=== PATIENT | male | born 1975 | race Caucasian/White ===

== ENCOUNTER 2016-05-21 01:08 | Emergency (ER) | payer MEDICARE, MEDICAID ==
[~2016-05-21] VITALS: Ht 177.8 cm; Wt 91.7 kg
[~2016-05-21 01:08] MED LIST: AMLO2.5T PO; ARIP10TA13 PO; ASPI-496 PO; CLIN150C2; CLON0.5T PO; DIAZ5TAB4; DIVA500T2 PO; DIVA500T4 PO; DOXE100C PO; HALO5AMP3; HALO5AMP3 PO; LORA-445 PO; LORA-446 PO; LOXA5CAP PO; LURA60TA PO; MELO-184 PO; NAPR500T3; OLAN10TA3 PO; OLAN10TA9 PO; OLAN20TA3 PO; OMEP-110 PO; OXCA150T PO; OXCA150T3 PO; OXCA600T3 PO; PALI234D IM; PRAZ1CAP2; PRAZ2CAP PO; PRAZ2CAP2 PO; QUET100T4 PO; QUET25TA5 PO; QUET400T4 PO; THORAZINE; TOPI15CA4 PO; TRAM-385; TRAM50TA2 PO; TRIH2TAB3 PO; ZIPR20CA2 PO; ZIPR80CA2
[2016-05-21 01:10] VITALS: BP 142/85
== END 2016-05-21 04:42 ==
LOC: ED 04:03
DX: R53.1 Weakness (principal); Z53.21 Procedure and treatment not carried out due to patient leaving prior to being seen by health care provider

== ENCOUNTER 2016-06-13 22:41 | Observation (INO) | payer MEDICARE, MEDICAID ==
[~2016-06-13] VITALS: Ht 180.3 cm; Wt 89.5 kg
[2016-06-13 23:38] LABS: HEMOGLOBIN 16.2 g/dL (13.7-18.0)
[2016-06-13 23:50] LABS: BLOOD UREA NITROGEN 15 mg/dL (7-18)
[2016-06-13 23:53] LABS: ASPARTATE AMINO TRANSFERASE 38 U/L (15-37)
[2016-06-13 23:56] LABS: ACETAMINOPHEN < 2 mcg/mL (10-30)
[2016-06-14 00:26] LABS: DAU SCREEN DISCLAIMER
[2016-06-14] MEDS ORDERED: ZIPRASIDONE 20 MG INJ IM PRN (02:00)
[2016-06-14 02:43] VITALS: BP 135/87
[2016-06-14] MEDS: OLANZAPINE 5 MG TABLET PO SCH ×2 (03:14→20:32)
[2016-06-14 08:26] VITALS: BP 120/78
[2016-06-14] MEDS: NICOTINE 21 MG/24 HR PATCH.TD24 TD SCH (09:43)
[2016-06-14 19:23] VITALS: BP 141/85
[2016-06-14] MEDS: HYDROcodone/APAP 5/325 TABLET PO PRN (20:32)
[2016-06-15] MEDS: LORazepam 1MG TABLET PO PRN ×2 (02:00→04:12)
[2016-06-15 07:49] VITALS: BP 125/78
[2016-06-15] MEDS: NICOTINE 21 MG/24 HR PATCH.TD24 TD SCH (08:51)
[2016-06-15] MEDS: ONDANSETRON ODT 4 MG PO PRN (08:58)
[2016-06-15 19:42] VITALS: BP 114/74
[2016-06-15] MEDS: HYDROcodone/APAP 5/325 TABLET PO PRN (19:42)
[2016-06-15] MEDS: OLANZAPINE 5 MG TABLET PO SCH (21:14)
[2016-06-16 08:30] VITALS: BP 127/79
[2016-06-16] MEDS: HYDROcodone/APAP 5/325 TABLET PO PRN ×4 (08:41→21:42)
[2016-06-16] MEDS: ONDANSETRON ODT 4 MG PO PRN (08:42)
[2016-06-16] MEDS: NICOTINE 21 MG/24 HR PATCH.TD24 TD SCH (08:42)
[2016-06-16] MEDS: LORazepam 1MG TABLET PO PRN ×4 (08:42→19:36)
[2016-06-16 19:42] VITALS: BP 128/82
[2016-06-16] MEDS: OLANZAPINE 5 MG TABLET PO SCH (20:14)
[2016-06-17] MEDS: HYDROcodone/APAP 5/325 TABLET PO PRN ×4 (06:25→21:12)
[2016-06-17 07:50] VITALS: BP 134/80
[2016-06-17] MEDS: NICOTINE 21 MG/24 HR PATCH.TD24 TD SCH (08:20)
[2016-06-17] MEDS: RISPERIDONE 0.5 MG TABLET PO SCH ×2 (10:00→21:12)
[2016-06-17] MEDS: OXCARBAZEPINE 150 MG TABLET PO SCH ×2 (11:14→21:12)
[2016-06-17] MEDS: LORazepam 1MG TABLET PO PRN (14:48)
[2016-06-17 19:25] VITALS: BP 146/93
[2016-06-17] MEDS: OLANZAPINE 5 MG TABLET PO SCH (21:12)
[2016-06-18] MEDS: LORazepam 1MG TABLET PO PRN ×2 (00:12→17:23)
[2016-06-18 07:47] VITALS: BP 137/88
[2016-06-18] MEDS: NICOTINE 21 MG/24 HR PATCH.TD24 TD SCH ×2 (08:36→08:38)
[2016-06-18] MEDS: RISPERIDONE 0.5 MG TABLET PO SCH ×2 (08:36→23:29)
[2016-06-18] MEDS: OXCARBAZEPINE 150 MG TABLET PO SCH ×2 (08:36→23:29)
[2016-06-18] MEDS: HYDROcodone/APAP 5/325 TABLET PO PRN ×3 (10:00→23:40)
[2016-06-18 20:04] VITALS: BP 163/112
[2016-06-18] MEDS: OLANZAPINE 5 MG TABLET PO SCH (23:29)
[2016-06-19 08:25] VITALS: BP 141/80
[2016-06-19] MEDS: AMLODIPINE 5 MG TABLET PO SCH (09:00)
[2016-06-19] MEDS: RISPERIDONE 0.5 MG TABLET PO SCH (09:31)
[2016-06-19] MEDS: OXCARBAZEPINE 150 MG TABLET PO SCH ×2 (09:31→21:20)
[2016-06-19] MEDS: NICOTINE 21 MG/24 HR PATCH.TD24 TD SCH (09:33)
[2016-06-19] MEDS: HYDROcodone/APAP 5/325 TABLET PO PRN ×2 (09:42→21:24)
[2016-06-19] MEDS: LORazepam 1MG TABLET PO PRN (13:16)
[2016-06-19 19:51] VITALS: BP 140/94
[2016-06-19] MEDS: RISPERIDONE 1 MG TABLET PO SCH (21:19)
[2016-06-20] MEDS: AMLODIPINE 5 MG TABLET PO SCH (08:26)
[2016-06-20] MEDS: OXCARBAZEPINE 150 MG TABLET PO SCH ×2 (08:26→20:10)
[2016-06-20] MEDS: NICOTINE 21 MG/24 HR PATCH.TD24 TD SCH (08:31)
[2016-06-20] MEDS: HYDROcodone/APAP 5/325 TABLET PO PRN ×2 (08:32→20:10)
[2016-06-20 09:00] VITALS: BP 125/84
[2016-06-20 19:47] VITALS: BP 132/77
[2016-06-20] MEDS: RISPERIDONE 1 MG TABLET PO SCH (20:09)
[2016-06-20 23:39] VITALS: BP 132/89
[2016-06-20] MEDS: LORazepam 1MG TABLET PO PRN (23:42)
[2016-06-21] MEDS: AMLODIPINE 5 MG TABLET PO SCH (08:16)
[2016-06-21] MEDS: OXCARBAZEPINE 150 MG TABLET PO SCH ×2 (08:17→20:07)
[2016-06-21 08:39] VITALS: BP 114/72
[2016-06-21] MEDS: NICOTINE 21 MG/24 HR PATCH.TD24 TD SCH (09:20)
[2016-06-21] MEDS: HYDROcodone/APAP 5/325 TABLET PO PRN ×2 (13:15→20:04)
[2016-06-21] MEDS: LORazepam 1MG TABLET PO PRN (17:40)
[2016-06-21 19:32] VITALS: BP 155/96
[2016-06-21] MEDS: RISPERIDONE 1 MG TABLET PO SCH (20:04)
[2016-06-22] MEDS: HYDROcodone/APAP 5/325 TABLET PO PRN ×2 (03:15→10:46)
[2016-06-22] MEDS: LORazepam 1MG TABLET PO PRN (05:18)
[2016-06-22] MEDS: AMLODIPINE 5 MG TABLET PO SCH (07:37)
[2016-06-22] MEDS: OXCARBAZEPINE 150 MG TABLET PO SCH (07:37)
[2016-06-22 08:05] VITALS: BP 129/78
[2016-06-22] MEDS: NICOTINE 21 MG/24 HR PATCH.TD24 TD SCH (08:28)
[2016-06-22] MEDS ORDERED: RISP1TAB45 PO (14:01)
[2016-06-22] MEDS ORDERED: OXCA300T3 PO (14:01)
[2016-06-22] MEDS ORDERED: AMLO5TAB2 PO (14:01)
== END 2016-06-22 14:48 | disposition home or self-care (01) ==
LOC: ED 23:59 → 3E 06-14 01:34
PROVIDERS: ADMIT Internal Medicine; ATTEND Internal Medicine
DX: F25.9 Schizoaffective disorder, unspecified (principal); F31.9 Bipolar disorder, unspecified; R45.851 Suicidal ideations; F17.200 Nicotine dependence, unspecified, uncomplicated; F23 Brief psychotic disorder; I10 Essential (primary) hypertension; Z59.0 Homelessness; Z91.19 Patient's noncompliance with other medical treatment and regimen; W26.0XXA Contact with knife, initial encounter
CPT/HCPCS: 36415; 80053; 80307; 80329; 81003; 85025; 99285; G0378; Q0162; G0480

== ENCOUNTER 2016-06-23 22:11 | Emergency (ER) | payer MEDICARE, MEDICAID ==
[~2016-06-23] VITALS: Ht 177.8 cm; Wt 91.3 kg
[~2016-06-23 22:11] MED LIST changes: +AMLO5TAB2 PO; +OXCA300T3 PO; +RISP1TAB45 PO
[2016-06-23 23:36] LABS: DAU SCREEN DISCLAIMER
[2016-06-24 00:07] LABS: ASPARTATE AMINO TRANSFERASE 64 U/L (15-37); BLOOD UREA NITROGEN 15 mg/dL (7-18)
[2016-06-24 00:12] LABS: ACETAMINOPHEN < 2 mcg/mL (10-30)
[2016-06-24 05:10] VITALS: BP 147/99
== END 2016-06-24 05:11 | disposition home or self-care (01) ==
LOC: ED 23:10
DX: F31.63 Bipolar disorder, current episode mixed, severe, without psychotic features (principal); I10 Essential (primary) hypertension
CPT/HCPCS: 36415; 71010; 80053; 80307; 80329; 85025; 93005; 99285; G0480

== ENCOUNTER 2016-06-24 12:02 | Observation (INO) | payer MEDICARE, MEDICAID ==
[~2016-06-24] VITALS: Ht 177.8 cm; Wt 89.6 kg
[2016-06-24] MEDS ORDERED: ZIPRASIDONE 20 MG INJ IM ONE (13:00)
[2016-06-24 13:03] LABS: ASPARTATE AMINO TRANSFERASE 66 U/L (15-37); BLOOD UREA NITROGEN 18 mg/dL (7-18)
[2016-06-24 13:11] LABS: ACETAMINOPHEN < 2 mcg/mL (10-30)
[2016-06-24] MEDS ORDERED: LORazepam 1MG TABLET ONE (13:42)
[2016-06-24] MEDS ORDERED: ZIPRASIDONE 20MG CAPSULE ONE (13:42)
[2016-06-24] MEDS ORDERED: LORazepam 1MG TABLET PO ONE (14:00)
[2016-06-24] MEDS ORDERED: ZIPRASIDONE 20MG CAPSULE PO ONE (14:00)
[2016-06-24] MEDS ORDERED: QUETIAPINE 25MG TABLET PO ONE (14:30)
[2016-06-24 15:41] LABS: DAU SCREEN DISCLAIMER
[2016-06-24 15:47] LABS: PATH.CAST-FLAG NOT PRESENT; SPERM-FLAG NOT PRESENT; SRC-FLAG NOT PRESENT; XTAL-FLAG NOT PRESENT; YLC-FLAG NOT PRESENT
[2016-06-24] MEDS ORDERED: DOCUSATE 100 MG CAPSULE PO PRN (17:00)
[2016-06-24 17:55] VITALS: BP 145/83
[2016-06-24 19:44] VITALS: BP 118/63
[2016-06-24] MEDS: OXCARBAZEPINE 150 MG TABLET PO SCH (21:47)
[2016-06-24] MEDS: RISPERIDONE 1 MG TABLET PO SCH (21:47)
[2016-06-25 07:19] VITALS: BP 116/73
[2016-06-25] MEDS: AMLODIPINE 5 MG TABLET PO SCH (08:23)
[2016-06-25] MEDS: OXCARBAZEPINE 150 MG TABLET PO SCH ×2 (08:25→21:45)
[2016-06-25 19:42] VITALS: BP 132/80
[2016-06-25] MEDS: RISPERIDONE 1 MG TABLET PO SCH (21:46)
[2016-06-26 08:03] VITALS: BP 112/64
[2016-06-26] MEDS: OXCARBAZEPINE 150 MG TABLET PO SCH ×2 (09:18→20:25)
[2016-06-26] MEDS: AMLODIPINE 5 MG TABLET PO SCH (09:18)
[2016-06-26] MEDS ORDERED: IBUPROFEN 200 MG TABLET PO PRN (15:00)
[2016-06-26 19:00] VITALS: BP 147/83
[2016-06-26] MEDS: RISPERIDONE 1 MG TABLET PO SCH (20:24)
[2016-06-27] MEDS: AMLODIPINE 5 MG TABLET PO SCH (08:04)
[2016-06-27] MEDS: OXCARBAZEPINE 150 MG TABLET PO SCH ×2 (08:04→19:57)
[2016-06-27 08:17] VITALS: BP 133/82
[2016-06-27] MEDS: RISPERIDONE 1 MG TABLET PO SCH (19:57)
== END 2016-06-28 04:42 ==
LOC: ED 13:40 → EDIP 14:02 → 3E 17:47
PROVIDERS: ADMIT Family Medicine; ATTEND Family Medicine
DX: F25.9 Schizoaffective disorder, unspecified (principal); I10 Essential (primary) hypertension; F32.9 Major depressive disorder, single episode, unspecified; R45.851 Suicidal ideations; R44.0 Auditory hallucinations; G40.909 Epilepsy, unspecified, not intractable, without status epilepticus; Z91.19 Patient's noncompliance with other medical treatment and regimen; Z86.19 Personal history of other infectious and parasitic diseases
CPT/HCPCS: 36415; 80053; 80307; 80329; 81001; 85025; 99285; G0378; G0480

== ENCOUNTER 2016-07-27 07:13 | Emergency (ER) | payer MEDICARE, MEDICAID ==
[~2016-07-27] VITALS: Ht 177.8 cm; Wt 90.4 kg
[2016-07-27 07:15] VITALS: BP 133/75
== END 2016-07-27 08:17 | disposition home or self-care (01) ==
LOC: ED 08:00
DX: M79.672 Pain in left foot (principal); M79.671 Pain in right foot; Z72.89 Other problems related to lifestyle; I10 Essential (primary) hypertension; M19.90 Unspecified osteoarthritis, unspecified site; F10.20 Alcohol dependence, uncomplicated
CPT/HCPCS: 99281

== ENCOUNTER 2016-08-12 15:51 | Emergency (ER) | payer MEDICARE, MEDICAID ==
[~2016-08-12] VITALS: Ht 177.8 cm; Wt 90.1 kg
[2016-08-12 16:00] VITALS: BP 132/75
[2016-08-13] MEDS ORDERED: DIVA125T2 PO (01:37)
[2016-08-13] MEDS ORDERED: HALO5TAB5 PO (01:38)
== END 2016-08-12 17:36 | disposition left against medical advice (07) ==
LOC: ED 17:30
DX: Z53.21 Procedure and treatment not carried out due to patient leaving prior to being seen by health care provider (principal)

== ENCOUNTER 2016-08-13 01:18 | Emergency (ER) | payer MEDICARE, MEDICAID ==
[~2016-08-13] VITALS: Ht 177.8 cm; Wt 91.5 kg
[2016-08-13 01:20] VITALS: BP 129/81
[2016-08-13] MEDS ORDERED: DIVA125T2 PO (01:37)
[2016-08-13] MEDS ORDERED: HALO5TAB5 PO (01:38)
== END 2016-08-13 02:22 | disposition home or self-care (01) ==
LOC: ED 02:08
DX: L02.414 Cutaneous abscess of left upper limb (principal); M19.90 Unspecified osteoarthritis, unspecified site; F15.10 Other stimulant abuse, uncomplicated; I10 Essential (primary) hypertension; G40.909 Epilepsy, unspecified, not intractable, without status epilepticus; Z88.1 Allergy status to other antibiotic agents; F12.10 Cannabis abuse, uncomplicated; F17.200 Nicotine dependence, unspecified, uncomplicated; Z91.041 Radiographic dye allergy status
CPT/HCPCS: 99281

== ENCOUNTER 2016-09-07 05:02 | Emergency (ER) | payer MEDICARE, MEDICAID ==
[~2016-09-07] VITALS: Ht 177.8 cm; Wt 86.2 kg
[~2016-09-07 05:02] MED LIST changes: +DIVA125T2 PO; +HALO5TAB5 PO
[2016-09-07 05:04] VITALS: BP 126/90
[2016-09-07] MEDS ORDERED: LIDOCAINE 1%, 20ML ONE (05:54)
[2016-09-07] MEDS ORDERED: LIDOCAINE 1%, 20ML INFIL ONE (06:00)
== END 2016-09-07 07:33 | disposition home or self-care (01) ==
LOC: ED 05:36
DX: L02.414 Cutaneous abscess of left upper limb (principal); I89.1 Lymphangitis; F15.10 Other stimulant abuse, uncomplicated; I10 Essential (primary) hypertension; F17.200 Nicotine dependence, unspecified, uncomplicated
CPT/HCPCS: 10060

== ENCOUNTER 2016-09-08 04:06 | Emergency (ER) | payer MEDICARE, MEDICAID ==
[~2016-09-08] VITALS: Ht 177.8 cm; Wt 86.9 kg
[2016-09-08 04:24] VITALS: BP 119/77
[2016-09-08] MEDS ORDERED: BACITRACIN ZINC OINT 500U/GM, 0.9 GM ONE (05:59)
[2016-09-08] MEDS ORDERED: BACITRACIN ZINC OINT 500U/GM, 0.9 GM TP ONE (06:00)
== END 2016-09-08 06:14 | disposition home or self-care (01) ==
LOC: ED 05:11
DX: L02.414 Cutaneous abscess of left upper limb (principal); E87.6 Hypokalemia; I10 Essential (primary) hypertension; F10.20 Alcohol dependence, uncomplicated; M19.90 Unspecified osteoarthritis, unspecified site
CPT/HCPCS: 99281

== ENCOUNTER 2016-09-09 09:52 | Emergency (ER) | payer MEDICARE, MEDICAID ==
[~2016-09-09] VITALS: Ht 177.8 cm; Wt 85.8 kg
[2016-09-09 09:57] VITALS: BP 109/73
== END 2016-09-09 10:51 | disposition home or self-care (01) ==
LOC: ED 10:30
DX: L02.414 Cutaneous abscess of left upper limb (principal); E87.6 Hypokalemia; I10 Essential (primary) hypertension; F10.20 Alcohol dependence, uncomplicated; M19.90 Unspecified osteoarthritis, unspecified site
CPT/HCPCS: 99283

== ENCOUNTER 2016-09-10 17:08 | Emergency (ER) | payer MEDICARE, MEDICAID ==
[~2016-09-10] VITALS: Ht 177.8 cm; Wt 86.9 kg
[2016-09-10 17:10] VITALS: BP 147/87
[2016-09-10] MEDS ORDERED: KETOROLAC 30 MG/1 ML IM ONE (18:00)
[2016-09-10] MEDS ORDERED: KETOROLAC 30 MG/1 ML ONE (18:06)
== END 2016-09-10 18:39 ==
LOC: ED 18:12
DX: M54.6 Pain in thoracic spine (principal); E87.6 Hypokalemia; F10.20 Alcohol dependence, uncomplicated
CPT/HCPCS: 93005; 96372; 99283; J1885

== ENCOUNTER 2016-09-15 22:16 | Emergency (ER) | payer MEDICARE, MEDICAID ==
[~2016-09-15] VITALS: Ht 177.8 cm; Wt 87.5 kg
[2016-09-15] MEDS ORDERED: PROMETHAZINE 25 MG/ML, 1ML ONE (23:12)
[2016-09-15] MEDS ORDERED: PROMETHAZINE 25 MG/ML, 1ML IM ONE (23:30)
[2016-09-16] MEDS ORDERED: ONDANSETRON 2MG/ML, 2ML IVPush ONE (02:00)
[2016-09-16 02:53] VITALS: BP 112/73
== END 2016-09-16 02:56 | disposition home or self-care (01) ==
LOC: ED 22:48
DX: G44.209 Tension-type headache, unspecified, not intractable (principal); F15.20 Other stimulant dependence, uncomplicated; I10 Essential (primary) hypertension; F10.20 Alcohol dependence, uncomplicated
CPT/HCPCS: 96372; 99283; J2550

== ENCOUNTER 2016-09-21 20:22 | Emergency (ER) | payer MEDICARE, MEDICAID ==
[~2016-09-21] VITALS: Ht 177.8 cm; Wt 83.6 kg
[2016-09-21 22:00] LABS: ASPARTATE AMINO TRANSFERASE 21 U/L (15-37); BLOOD UREA NITROGEN 17 mg/dL (7-18)
[2016-09-21 22:01] LABS: ACETAMINOPHEN < 2 mcg/mL (10-30)
[2016-09-21 23:18] LABS: DAU SCREEN DISCLAIMER
[2016-09-22 01:08] VITALS: BP 121/71
== END 2016-09-22 01:12 | disposition home or self-care (01) ==
LOC: ED 22:13
DX: F15.20 Other stimulant dependence, uncomplicated (principal); Z72.89 Other problems related to lifestyle; I10 Essential (primary) hypertension; F10.20 Alcohol dependence, uncomplicated
CPT/HCPCS: 36415; 80053; 80307; 80329; 85025; 99284; G0480

== ENCOUNTER 2016-09-22 14:19 | Emergency (ER) | payer MEDICARE, MEDICAID ==
[~2016-09-22] VITALS: Ht 172.7 cm; Wt 83.0 kg
[2016-09-22 14:20] VITALS: BP 133/87
[2016-09-22] MEDS ORDERED: LORazepam 1MG TABLET ONE (14:51)
[2016-09-22 14:52] LABS: DAU SCREEN DISCLAIMER
[2016-09-22] MEDS ORDERED: LORazepam 1MG TABLET PO ONE (15:00)
== END 2016-09-22 17:19 | disposition home or self-care (01) ==
LOC: ED 15:02
DX: F41.1 Generalized anxiety disorder (principal); F15.10 Other stimulant abuse, uncomplicated; F20.9 Schizophrenia, unspecified; F10.20 Alcohol dependence, uncomplicated
CPT/HCPCS: 80307; 99284

== ENCOUNTER 2016-09-26 12:57 | Emergency (ER) | payer MEDICARE, MEDICAID ==
[~2016-09-26] VITALS: Ht 177.8 cm; Wt 86.1 kg
[2016-09-26 12:58] VITALS: BP 126/81
[2016-09-26] MEDS ORDERED: CARBAMIDE PEROXIDE EAR DROPS 6.5%, 15ML ONE (12:59)
== END 2016-09-26 14:35 | disposition left against medical advice (07) ==
LOC: ED 14:29
DX: Z53.21 Procedure and treatment not carried out due to patient leaving prior to being seen by health care provider (principal)

== ENCOUNTER 2016-09-28 19:43 | Observation (INO) | payer MEDICARE, MEDICAID ==
[~2016-09-28] VITALS: Ht 177.8 cm; Wt 87.4 kg
[2016-09-28 20:38] LABS: DAU SCREEN DISCLAIMER
[2016-09-28] MEDS ORDERED: LORazepam 1MG TABLET ONE (20:48)
[2016-09-28] MEDS ORDERED: VALP250C59 PO (20:56)
[2016-09-28] MEDS ORDERED: HALO5TAB5 PO (20:56)
[2016-09-28] MEDS ORDERED: [UNRECOGNIZED DRUG - OTHER] IM (20:56)
[2016-09-28] MEDS ORDERED: [UNRECOGNIZED DRUG - OTHER] IM (20:56)
[2016-09-28] MEDS ORDERED: LORazepam 1MG TABLET PO ONE (21:00)
[2016-09-28 21:20] LABS: BLOOD UREA NITROGEN 6 mg/dL (7-18)
[2016-09-28 21:21] LABS: ACETAMINOPHEN < 2 mcg/mL (10-30)
[2016-09-29] MEDS ORDERED: HALOPERIDOL 5 MG/ML IM PRN (01:30)
[2016-09-29] MEDS ORDERED: BENZTROPINE 1 MG TABLET PO PRN (01:30)
[2016-09-29] MEDS ORDERED: LORazepam 1MG TABLET ONE (17:11)
[2016-09-30] MEDS: VALPROIC ACID 250 MG CAPSULE PO SCH ×2 (09:38→22:19)
[2016-09-30] MEDS: HALOPERIDOL 5 MG TABLET PO SCH (09:38)
[2016-09-30 15:10] VITALS: BP 125/73
[2016-09-30] MEDS: LORazepam 1MG TABLET PO PRN ×2 (18:34→21:36)
[2016-09-30 19:58] VITALS: BP 117/76
[2016-10-01 08:47] VITALS: BP 114/71
[2016-10-01] MEDS: VALPROIC ACID 250 MG CAPSULE PO SCH ×2 (09:07→20:39)
[2016-10-01] MEDS: HALOPERIDOL 5 MG TABLET PO SCH (09:07)
[2016-10-01] MEDS ORDERED: POTASSIUM CHLORIDE 20 MEQ TAB.ER.PRT PO ONE (19:00)
[2016-10-01 19:48] VITALS: BP 106/78
[2016-10-01] MEDS: LORazepam 1MG TABLET PO PRN (20:39)
[2016-10-01] MEDS: NICOTINE 21 MG/24 HR PATCH.TD24 TD SCH (21:30)
[2016-10-02] MEDS: LORazepam 1MG TABLET PO PRN ×3 (01:02→23:01)
[2016-10-02] MEDS: NICOTINE 21 MG/24 HR PATCH.TD24 TD SCH (01:43)
[2016-10-02 05:02] LABS: BLOOD UREA NITROGEN 6 mg/dL (7-18)
[2016-10-02 07:13] VITALS: BP 131/86
[2016-10-02] MEDS: HALOPERIDOL 5 MG TABLET PO SCH (09:30)
[2016-10-02] MEDS: VALPROIC ACID 250 MG CAPSULE PO SCH ×2 (09:30→20:15)
[2016-10-02 19:46] VITALS: BP 125/79
[2016-10-03] MEDS: LORazepam 1MG TABLET PO PRN (04:07)
[2016-10-03 07:15] VITALS: BP 116/79
[2016-10-03] MEDS: HALOPERIDOL 5 MG TABLET PO SCH (08:01)
[2016-10-03] MEDS: VALPROIC ACID 250 MG CAPSULE PO SCH (08:01)
== END 2016-10-03 15:05 | disposition home or self-care (01) ==
LOC: ED 21:05 → EDIP 23:59 → 3E 09-30 14:32
PROVIDERS: ADMIT Internal Medicine; ATTEND Internal Medicine
DX: F23 Brief psychotic disorder (principal); E87.6 Hypokalemia; R45.851 Suicidal ideations; F22 Delusional disorders; F41.1 Generalized anxiety disorder; I10 Essential (primary) hypertension
CPT/HCPCS: 36415; 80048; 80307; 80329; 81003; 82040; 85025; 96372; 99285; G0378; J1630; G0480

== ENCOUNTER 2016-10-26 18:20 | Emergency (ER) | payer MEDICARE, MEDICAID ==
[~2016-10-26] VITALS: Ht 177.8 cm; Wt 81.6 kg
[~2016-10-26 18:20] MED LIST changes: -ARIP10TA13 PO; +ARIP10TA33 PO; -MELO-184 PO; +MELO15TA24 PO; +VALP250C59 PO; +[UNRECOGNIZED DRUG - OTHER] IM; +[UNRECOGNIZED DRUG - OTHER] IM
[2016-10-26 18:22] VITALS: BP 161/108
[2016-10-26] MEDS ORDERED: BACITRACIN ZINC OINT 500U/GM, 0.9 GM ONE (18:56)
== END 2016-10-26 19:34 | disposition home or self-care (01) ==
LOC: ED 18:52
DX: L03.211 Cellulitis of face (principal); R21 Rash and other nonspecific skin eruption; F15.10 Other stimulant abuse, uncomplicated; F17.200 Nicotine dependence, unspecified, uncomplicated; F20.9 Schizophrenia, unspecified; F31.9 Bipolar disorder, unspecified; I10 Essential (primary) hypertension; M19.90 Unspecified osteoarthritis, unspecified site; G40.909 Epilepsy, unspecified, not intractable, without status epilepticus
CPT/HCPCS: 99283

== ENCOUNTER 2016-10-28 05:00 | Emergency (ER) | payer MEDICARE, MEDICAID ==
[~2016-10-28] VITALS: Ht 177.8 cm; Wt 81.5 kg
[2016-10-28 05:01] VITALS: BP 147/98
[2016-10-28] MEDS ORDERED: BENZOCAINE 20% SPRAY 0.5ML TP ONE (05:30)
[2016-10-28] MEDS ORDERED: BENZOCAINE 20% SPRAY 0.5ML ONE (05:56)
[2016-10-28] MEDS ORDERED: HYDROcodone/APAP 5/325 TABLET ONE (06:45)
[2016-10-28] MEDS ORDERED: HYDROcodone/APAP 5/325 TABLET PO ONE (07:00)
== END 2016-10-28 06:50 | disposition home or self-care (01) ==
LOC: ED 06:17
DX: S01.512A Laceration without foreign body of oral cavity, initial encounter (principal); F15.10 Other stimulant abuse, uncomplicated; F20.9 Schizophrenia, unspecified; F31.9 Bipolar disorder, unspecified; I10 Essential (primary) hypertension; M19.90 Unspecified osteoarthritis, unspecified site; Y04.0XXA Assault by unarmed brawl or fight, initial encounter; Y93.89 Activity, other specified; Y92.410 Unspecified street and highway as the place of occurrence of the external cause; Y99.8 Other external cause status
CPT/HCPCS: 41252; 70486

== ENCOUNTER 2016-12-26 08:05 | Emergency (ER) | payer MEDICARE, MEDICAID ==
[~2016-12-26] VITALS: Ht 177.8 cm; Wt 88.4 kg
[~2016-12-26 08:05] MED LIST changes: -NAPR500T3; +NAPR500T4; +QUET300T PO; +QUET300T5 PO; +TOPI50TA35 PO
[2016-12-26] MEDS ORDERED: ASPI-496 PO (08:49)
[2016-12-26] MEDS ORDERED: ASPIRIN 81 MG TABLET CHEW ONE (08:50)
[2016-12-26 08:59] LABS: HEMATOCRIT 46.9 % (39.2-51.8); HEMOGLOBIN 16.3 g/dL (13.7-18.0); WHITE BLOOD COUNT 6.5 x10^3/uL (3.4-10)
[2016-12-26] MEDS ORDERED: ASPIRIN 81 MG TABLET CHEW PO ONE (09:00)
[2016-12-26 09:12] LABS: BLOOD UREA NITROGEN 10 mg/dL (7-18)
[2016-12-26 09:16] LABS: IS PT STATUS REG ER OR PRE ER? YES
[2016-12-26 09:45] VITALS: BP 125/87
== END 2016-12-26 09:47 | disposition home or self-care (01) ==
LOC: ED 08:39
DX: R07.89 Other chest pain (principal); F31.9 Bipolar disorder, unspecified; G89.29 Other chronic pain; R51 Headache; G43.909 Migraine, unspecified, not intractable, without status migrainosus; G40.909 Epilepsy, unspecified, not intractable, without status epilepticus; F15.10 Other stimulant abuse, uncomplicated; I10 Essential (primary) hypertension; F10.29 Alcohol dependence with unspecified alcohol-induced disorder; F20.9 Schizophrenia, unspecified
CPT/HCPCS: 36415; 71010; 80048; 82040; 84484; 85025; 93005; 99285

== ENCOUNTER 2017-04-15 10:31 | Emergency (ER) | payer MEDICARE, MEDICAID ==
[~2017-04-15] VITALS: Ht 177.8 cm; Wt 89.0 kg
[2017-04-15 10:35] VITALS: BP 134/88
== END 2017-04-15 12:54 | disposition home or self-care (01) ==
LOC: ED 12:42
DX: F20.0 Paranoid schizophrenia (principal); I10 Essential (primary) hypertension; G40.909 Epilepsy, unspecified, not intractable, without status epilepticus; F31.9 Bipolar disorder, unspecified; Z88.0 Allergy status to penicillin
CPT/HCPCS: 93005; 99284

== ENCOUNTER 2017-04-16 03:57 | Emergency (ER) | payer MEDICARE, MEDICAID ==
[~2017-04-16] VITALS: Ht 172.7 cm; Wt 74.0 kg
[2017-04-16] MEDS ORDERED: KETOROLAC 30 MG/1 ML IM ONE (05:30)
[2017-04-16] MEDS ORDERED: KETOROLAC 30 MG/1 ML ONE (05:33)
[2017-04-16 05:48] VITALS: BP 138/72
== END 2017-04-16 05:53 | disposition home or self-care (01) ==
LOC: ED 05:00
DX: G43.C0 Periodic headache syndromes in child or adult, not intractable (principal); M19.90 Unspecified osteoarthritis, unspecified site; I10 Essential (primary) hypertension
CPT/HCPCS: 96372; 99283; J1885

== ENCOUNTER 2017-04-22 13:07 | Observation (INO) | payer MEDICARE, MEDICAID ==
[~2017-04-22] VITALS: Ht 177.8 cm; Wt 87.2 kg
[2017-04-22 13:58] LABS: BASOPHILS # (AUTO) 0.04 x10^3/uL (0-0.1); BASOPHILS % (AUTO) 1 % (0-1); EOSINOPHILS # (AUTO) 0.29 x10^3/uL (0-0.4); EOSINOPHILS % (AUTO) 3 % (1-7); LYMPHOCYTES # (AUTO) 2.75 x10^3/uL (1-3.4); LYMPHOCYTES % (AUTO) 32 % (22-44); MD NO; MEAN CORPUSCULAR HEMOGLOBIN 31.5 pg (27.5-34.5); MEAN CORPUSCULAR HGB CONC 34.7 g/dL (33.2-36.2); MEAN CORPUSCULAR VOLUME 90.9 fL (81-97); MEAN PLATELET VOLUME 6.7 fL (7.4-10.4); MONOCYTES # (AUTO) 0.38 x10^3/uL (0.2-0.8); MONOCYTES % (AUTO) 4 % (2-9); NEUTROPHILS # (AUTO) 5.15 x10^3/uL (1.8-6.8); NEUTROPHILS % (AUTO) 60 % (42-75); PLATELET COUNT 246 x10^3/uL (130-400); RED BLOOD COUNT 4.88 x10^6/uL (4.38-5.82); RED CELL DISTRIBUTION WIDTH 13.3 % (9.4-14.8)
[2017-04-22 14:06] LABS: ALANINE AMINOTRANSFERASE 45 U/L (12-78); ALBUMIN 3.7 g/dL (3.4-5.0); ANION GAP 7 mmol/L (5-15); CALCIUM 8.2 mg/dL (8.5-10.1); CHLORIDE 108 mmol/L (98-107); SALICYLATE LEVEL 1.9 mg/dL (2.8-20.0)
[2017-04-22 14:07] LABS: AMPHETAMINE SCREEN, URINE Negative (Negative); BARBITURATE SCREEN, URINE Negative (Negative); BENZODIAZEPINE SCREEN, URINE Negative (Negative); CANNABINOID SCREEN, URINE Negative (Negative); COCAINE SCREEN, URINE Negative (Negative); METHADONE SCREEN, URINE Negative (Negative); OPIATE SCREEN, URINE Negative (Negative)
[2017-04-22 14:08] LABS: ALKALINE PHOSPHATASE 71 U/L (45-117); BILIRUBIN,TOTAL 0.2 mg/dL (0.2-1.0); TOTAL PROTEIN 7.1 g/dL (6.4-8.2)
[2017-04-22 14:11] LABS: ACETAMINOPHEN < 2 mcg/mL (10-30)
[2017-04-22] MEDS ORDERED: LORazepam 1MG TABLET ONE (16:21)
[2017-04-22] MEDS ORDERED: DIPHENHYDRAMINE 50 MG CAPSULE ONE (16:21)
[2017-04-22] MEDS ORDERED: DIPHENHYDRAMINE 50 MG CAPSULE PO PRN (16:30)
[2017-04-22] MEDS ORDERED: LORazepam 1MG TABLET PO PRN (16:30)
[2017-04-22] MEDS ORDERED: Prolixin IM (17:39)
[2017-04-22] MEDS ORDERED: NALT380S IM (17:39)
[2017-04-22] MEDS ORDERED: PANT40TA5 PO (18:12)
[2017-04-22] MEDS ORDERED: BUSP10TA PO (18:12)
[2017-04-22] MEDS ORDERED: METO-93 PO (18:12)
[2017-04-22] MEDS ORDERED: PROZOSIN PO (18:12)
[2017-04-22] MEDS ORDERED: IBUP-1222 PO (18:12)
[2017-04-22] MEDS ORDERED: OXYCARBAZEPINE PO (18:12)
[2017-04-22] MEDS ORDERED: QUET200T4 PO (18:12)
[2017-04-22] MEDS ORDERED: QUETIAPINE 100MG TABLET ONE (18:37)
[2017-04-22] MEDS: QUETIAPINE 200 MG TABLET PO SCH (20:36)
[2017-04-22] MEDS: BUSPIRONE 10 MG TABLET PO SCH (20:36)
[2017-04-22] MEDS: TOPIRAMATE 25 MG TABLET PO SCH (20:36)
[2017-04-23] MEDS ORDERED: TEMPLATE NON-FORMULARY MED. (Quetiapine Fumarate** (Seroquel**) 300 MG) PO SCH (09:00)
[2017-04-23] MEDS ORDERED: METOPROLOL TARTRATE 25 MG TABLET ONE (09:12)
[2017-04-23] MEDS ORDERED: PANTOPRAZOLE 20MG TABLET ONE (09:12)
[2017-04-23] MEDS: ASPIRIN 81 MG TABLET EC PO SCH (10:27)
[2017-04-23] MEDS: PANTOPROZOLE 40MG TABLET PO SCH (10:27)
[2017-04-23] MEDS: BUSPIRONE 10 MG TABLET PO SCH ×3 (10:27→19:40)
[2017-04-23] MEDS: METOPROLOL SUCCINATE 50 MG TAB.ER.24H PO SCH (10:27)
[2017-04-23] MEDS: TOPIRAMATE 25 MG TABLET PO SCH ×2 (11:51→19:40)
[2017-04-23] MEDS ORDERED: DIPHENHYDRAMINE 50 MG CAPSULE PO PRN (13:00)
[2017-04-23] MEDS ORDERED: LORazepam 0.5MG TABLET ONE (13:07)
[2017-04-23] MEDS ORDERED: DIPHENHYDRAMINE 25 MG CAPSULE ONE (13:07)
[2017-04-23] MEDS: LORazepam 1MG TABLET PO PRN ×2 (14:14→19:40)
[2017-04-23] MEDS: QUETIAPINE 200 MG TABLET PO SCH (19:40)
[2017-04-23 19:50] VITALS: BP 122/72
[2017-04-23] MEDS: NICOTINE 14MG/24 HR PATCH.TD24 TD SCH (20:41)
[2017-04-24 02:45] VITALS: BP 115/76
[2017-04-24] MEDS: LORazepam 1MG TABLET PO PRN ×3 (04:43→17:54)
[2017-04-24 06:14] VITALS: BP 137/89
[2017-04-24] MEDS: TOPIRAMATE 25 MG TABLET PO SCH ×2 (10:22→21:08)
[2017-04-24] MEDS: PANTOPROZOLE 40MG TABLET PO SCH (10:22)
[2017-04-24] MEDS: ASPIRIN 81 MG TABLET EC PO SCH (10:22)
[2017-04-24] MEDS: BUSPIRONE 10 MG TABLET PO SCH ×3 (10:22→21:08)
[2017-04-24] MEDS: METOPROLOL SUCCINATE 50 MG TAB.ER.24H PO SCH (10:25)
[2017-04-24] MEDS: DIPHENHYDRAMINE 25 MG CAPSULE PO PRN (13:12)
[2017-04-24 16:39] VITALS: BP 110/73
[2017-04-24 19:49] VITALS: BP 96/59
[2017-04-24] MEDS: QUETIAPINE 200 MG TABLET PO SCH (21:07)
[2017-04-24] MEDS: NICOTINE 14MG/24 HR PATCH.TD24 TD SCH (21:08)
[2017-04-25] MEDS: IBUPROFEN 600 MG TABLET PO PRN ×2 (00:51→21:22)
[2017-04-25] MEDS: LORazepam 1MG TABLET PO PRN ×3 (00:51→21:23)
[2017-04-25 03:05] VITALS: BP 108/70
[2017-04-25 07:02] VITALS: BP 108/70
[2017-04-25] MEDS: METOPROLOL SUCCINATE 50 MG TAB.ER.24H PO SCH (10:42)
[2017-04-25] MEDS: TOPIRAMATE 25 MG TABLET PO SCH ×2 (10:42→21:22)
[2017-04-25] MEDS: ASPIRIN 81 MG TABLET EC PO SCH (10:42)
[2017-04-25] MEDS: PANTOPROZOLE 40MG TABLET PO SCH (10:42)
[2017-04-25] MEDS: BUSPIRONE 10 MG TABLET PO SCH ×3 (10:42→21:22)
[2017-04-25 14:31] VITALS: BP 115/75
[2017-04-25 20:01] VITALS: BP 122/83
[2017-04-25] MEDS: QUETIAPINE 200 MG TABLET PO SCH (21:22)
[2017-04-25] MEDS: NICOTINE 14MG/24 HR PATCH.TD24 TD SCH (21:23)
[2017-04-26] MEDS: LORazepam 1MG TABLET PO PRN (02:47)
[2017-04-26] MEDS: DIPHENHYDRAMINE 25 MG CAPSULE PO PRN (02:50)
[2017-04-26 02:53] VITALS: BP 127/87
[2017-04-26] MEDS: IBUPROFEN 600 MG TABLET PO PRN (04:07)
[2017-04-26 07:26] VITALS: BP 114/69
[2017-04-26] MEDS: BUSPIRONE 10 MG TABLET PO SCH (10:55)
[2017-04-26] MEDS: ASPIRIN 81 MG TABLET EC PO SCH (10:55)
[2017-04-26] MEDS: PANTOPROZOLE 40MG TABLET PO SCH (10:55)
[2017-04-26] MEDS: METOPROLOL SUCCINATE 50 MG TAB.ER.24H PO SCH (10:55)
[2017-04-26] MEDS: TOPIRAMATE 25 MG TABLET PO SCH (10:55)
== END 2017-04-26 15:23 | disposition home or self-care (01) ==
LOC: ED 14:06 → EDIP 16:04 → 3NE 04-23 18:01
PROVIDERS: ADMIT Internal Medicine Pulmonary Disease; ATTEND Internal Medicine Pulmonary Disease
DX: R45.851 Suicidal ideations (principal); F31.9 Bipolar disorder, unspecified; I10 Essential (primary) hypertension; F15.10 Other stimulant abuse, uncomplicated; F20.9 Schizophrenia, unspecified; G43.909 Migraine, unspecified, not intractable, without status migrainosus
CPT/HCPCS: 36415; 80053; 80307; 80329; 85025; 99285; G0378; Q0163; G0480

== ENCOUNTER 2017-05-07 14:50 | Emergency (ER) | payer MEDICARE, MEDICAID ==
[~2017-05-07] VITALS: Ht 177.8 cm; Wt 84.0 kg
[~2017-05-07 14:50] MED LIST changes: +BUSP10TA PO; +IBUP-1222 PO; +METO-93 PO; +NALT380S IM; +OXYCARBAZEPINE PO; +PANT40TA5 PO; +PROZOSIN PO; +Prolixin IM; +QUET200T4 PO
[2017-05-07] MEDS ORDERED: LORazepam 1MG TABLET PO ONE (15:30)
[2017-05-07] MEDS ORDERED: LORazepam 1MG TABLET ONE (15:38)
[2017-05-07] MEDS ORDERED: ASPIRIN 81 MG TABLET CHEW ONE (15:43)
[2017-05-07 15:51] LABS: BASOPHILS # (AUTO) 0.06 x10^3/uL (0-0.1); BASOPHILS % (AUTO) 1 % (0-1); EOSINOPHILS # (AUTO) 0.01 x10^3/uL (0-0.4); EOSINOPHILS % (AUTO) 0 % (1-7); LYMPHOCYTES # (AUTO) 1.95 x10^3/uL (1-3.4); LYMPHOCYTES % (AUTO) 15 % (22-44); MD NO; MEAN CORPUSCULAR HGB CONC 34.1 g/dL (33.2-36.2); MEAN CORPUSCULAR VOLUME 90.9 fL (81-97); MEAN PLATELET VOLUME 6.9 fL (7.4-10.4); MONOCYTES % (AUTO) 5 % (2-9); NEUTROPHILS # (AUTO) 9.99 x10^3/uL (1.8-6.8); NEUTROPHILS % (AUTO) 79 % (42-75); PLATELET COUNT 289 x10^3/uL (130-400); RED BLOOD COUNT 5.33 x10^6/uL (4.38-5.82); RED CELL DISTRIBUTION WIDTH 13.6 % (9.4-14.8)
[2017-05-07] MEDS ORDERED: ASPIRIN 81 MG TABLET CHEW PO ONE (16:00)
[2017-05-07 16:03] LABS: ALANINE AMINOTRANSFERASE 90 U/L (12-78); ALBUMIN 4.4 g/dL (3.4-5.0); ANION GAP 10 mmol/L (5-15); CALCIUM 8.9 mg/dL (8.5-10.1); CHLORIDE 109 mmol/L (98-107); CREATININE 0.72 mg/dL (0.7-1.3)
[2017-05-07 16:08] LABS: ALKALINE PHOSPHATASE 78 U/L (45-117); BILIRUBIN,TOTAL 0.7 mg/dL (0.2-1.0); TOTAL PROTEIN 8.4 g/dL (6.4-8.2); TROPONIN I < 0.015 ng/mL (0.000-0.045)
[2017-05-07 18:52] LABS: TROPONIN I < 0.015 ng/mL (0.000-0.045)
[2017-05-07 20:54] VITALS: BP 116/69
== END 2017-05-07 20:56 | disposition home or self-care (01) ==
LOC: ED 16:57
DX: R07.89 Other chest pain (principal); F15.10 Other stimulant abuse, uncomplicated; F17.210 Nicotine dependence, cigarettes, uncomplicated; I10 Essential (primary) hypertension; G43.909 Migraine, unspecified, not intractable, without status migrainosus; Z79.899 Other long term (current) drug therapy
CPT/HCPCS: 36415; 71045; 76700; 80053; 80307; 83690; 84484; 85025; 93005; 99285

== ENCOUNTER 2017-06-06 16:08 | Emergency (ER) | payer MEDICARE, MEDICAID ==
[~2017-06-06] VITALS: Ht 177.8 cm; Wt 91.3 kg
[~2017-06-06 16:08] MED LIST changes: +NAPR-685; -NAPR500T4
[2017-06-06 16:49] LABS: BASOPHILS % (AUTO) 1 % (0-1); EOSINOPHILS # (AUTO) 0.22 x10^3/uL (0-0.4); EOSINOPHILS % (AUTO) 2 % (1-7); LYMPHOCYTES # (AUTO) 2.64 x10^3/uL (1-3.4); LYMPHOCYTES % (AUTO) 25 % (22-44); MD NO; MEAN CORPUSCULAR HEMOGLOBIN 30.6 pg (27.5-34.5); MEAN CORPUSCULAR HGB CONC 33.6 g/dL (33.2-36.2); MONOCYTES # (AUTO) 0.62 x10^3/uL (0.2-0.8); MONOCYTES % (AUTO) 6 % (2-9); NEUTROPHILS # (AUTO) 7.07 x10^3/uL (1.8-6.8); NEUTROPHILS % (AUTO) 67 % (42-75); PLATELET COUNT 260 x10^3/uL (130-400); RED BLOOD COUNT 5.06 x10^6/uL (4.38-5.82)
[2017-06-06 17:02] LABS: ALANINE AMINOTRANSFERASE 95 U/L (12-78); ALBUMIN 3.8 g/dL (3.4-5.0); ANION GAP 9 mmol/L (5-15); CALCIUM 8.1 mg/dL (8.5-10.1); CHLORIDE 107 mmol/L (98-107); CREATININE 0.77 mg/dL (0.7-1.3)
[2017-06-06 17:04] VITALS: BP 136/80
[2017-06-06 17:04] LABS: ALKALINE PHOSPHATASE 67 U/L (45-117); BILIRUBIN,TOTAL 0.7 mg/dL (0.2-1.0); TOTAL PROTEIN 7.6 g/dL (6.4-8.2)
== END 2017-06-06 17:09 | disposition home or self-care (01) ==
LOC: ED 16:30
DX: K92.1 Melena (principal); I10 Essential (primary) hypertension; E87.6 Hypokalemia; F10.20 Alcohol dependence, uncomplicated; F15.10 Other stimulant abuse, uncomplicated; Z79.899 Other long term (current) drug therapy
CPT/HCPCS: 36415; 80053; 80307; 85025; 99284

== ENCOUNTER 2017-06-10 20:26 | Inpatient (IN) | payer MEDICARE, MEDICAID ==
[~2017-06-10] VITALS: Ht 177.8 cm; Wt 90.6 kg
[2017-06-10] MEDS ORDERED: VANCOMYCIN PER PHARMACY MC ONE (23:00)
[2017-06-10] MEDS ORDERED: CLINDAMYCIN PMX 600MG/50ML 50 ML IV ONE (23:00)
[2017-06-10] MEDS ORDERED: SODIUM CHLORIDE FLUSH 10ML SYR IVF ONE (23:00)
[2017-06-10 23:22] LABS: BASOPHILS # (AUTO) 0.09 x10^3/uL (0-0.1); BASOPHILS % (AUTO) 1 % (0-1); EOSINOPHILS # (AUTO) 0.14 x10^3/uL (0-0.4); EOSINOPHILS % (AUTO) 1 % (1-7); LYMPHOCYTES # (AUTO) 3.15 x10^3/uL (1-3.4); LYMPHOCYTES % (AUTO) 23 % (22-44); MD NO; MEAN CORPUSCULAR HEMOGLOBIN 30.8 pg (27.5-34.5); MEAN CORPUSCULAR HGB CONC 33.9 g/dL (33.2-36.2); MEAN CORPUSCULAR VOLUME 90.8 fL (81-97); MEAN PLATELET VOLUME 6.9 fL (7.4-10.4); MONOCYTES # (AUTO) 0.76 x10^3/uL (0.2-0.8); MONOCYTES % (AUTO) 6 % (2-9); NEUTROPHILS # (AUTO) 9.74 x10^3/uL (1.8-6.8); NEUTROPHILS % (AUTO) 70 % (42-75); PLATELET COUNT 265 x10^3/uL (130-400); RED BLOOD COUNT 5.11 x10^6/uL (4.38-5.82); RED CELL DISTRIBUTION WIDTH 12.9 % (9.4-14.8)
[2017-06-10 23:29] LABS: ANION GAP 9 mmol/L (5-15); CALCIUM 8.5 mg/dL (8.5-10.1); CHLORIDE 108 mmol/L (98-107); CREATININE 0.91 mg/dL (0.7-1.3)
[2017-06-10] MEDS ORDERED: VANCOMYCIN 1,800 MG in SODIUM CHLORIDE 0.9% 250 ML IV ONE (23:30)
[2017-06-10] MEDS ORDERED: CLINDAMYCIN PMX 600MG/50ML 50 ML ONE (23:43)
[2017-06-11] MEDS ORDERED: OMNIPAQUE 350 MG/ML, 100ML BOTTLE ONE (00:20)
[2017-06-11] MEDS ORDERED: morphine SULFATE 10 MG/ML, 1ML ONE (00:56)
[2017-06-11] MEDS ORDERED: morphine SULFATE/PF 1 MG/ML, 10ML IV ONE (01:00)
[2017-06-11] MEDS ORDERED: ASPI-515 PO (02:35)
[2017-06-11] MEDS ORDERED: METO-282 PO (02:35)
[2017-06-11] MEDS ORDERED: OLAN20TA3 PO (02:35)
[2017-06-11] MEDS ORDERED: TRAZ100T15 PO (02:35)
[2017-06-11] MEDS ORDERED: OLAN10TA3 PO (02:35)
[2017-06-11] MEDS ORDERED: hydrALAzine 20 MG/ML, 1ML IVPush PRN (05:00)
[2017-06-11] MEDS ORDERED: VANCOMYCIN PER PHARMACY MC PRN (05:00)
[2017-06-11] MEDS ORDERED: PHARMACOKINETIC MONITORING MC PRN (05:00)
[2017-06-11] MEDS ORDERED: ONDANSETRON 2MG/ML, 2ML IVPush PRN (05:00)
[2017-06-11] MEDS ORDERED: POLYETHYLENE GLYCOL 17 GM PACKET PO PRN (05:00)
[2017-06-11] MEDS: CLINDAMYCIN PMX 600MG/50ML 50 ML IV SCH ×3 (05:39→18:29)
[2017-06-11] MEDS: LACTATED RINGERS 1,000 ML IV SCH ×3 (05:39→17:31)
[2017-06-11 08:09] VITALS: BP 115/69
[2017-06-11] MEDS: METOPROLOL SUCCINATE 25 MG TAB.ER.24H PO SCH (08:30)
[2017-06-11] MEDS: ACETAMINOPHEN 325 MG TABLET PO PRN (13:21)
[2017-06-11 14:28] VITALS: BP 114/70
[2017-06-11] MEDS: VANCOMYCIN 1,800 MG in SODIUM CHLORIDE 0.9% 250 ML IV SCH (15:02)
[2017-06-11 19:10] VITALS: BP 109/74
[2017-06-11] MEDS: TRAZODONE 100MG TABLET PO SCH (20:21)
[2017-06-12] MEDS: CLINDAMYCIN PMX 600MG/50ML 50 ML IV SCH ×5 (00:41→23:38)
[2017-06-12] MEDS: LACTATED RINGERS 1,000 ML IV SCH (00:41)
[2017-06-12] MEDS: ACETAMINOPHEN 325 MG TABLET PO PRN (00:45)
[2017-06-12 01:38] VITALS: BP 114/50
[2017-06-12] MEDS: VANCOMYCIN 1,800 MG in SODIUM CHLORIDE 0.9% 250 ML IV SCH (02:57)
[2017-06-12 05:16] LABS: BASOPHILS # (AUTO) 0.01 x10^3/uL (0-0.1); BASOPHILS % (AUTO) 0 % (0-1); EOSINOPHILS # (AUTO) 0.28 x10^3/uL (0-0.4); EOSINOPHILS % (AUTO) 3 % (1-7); LYMPHOCYTES # (AUTO) 2.08 x10^3/uL (1-3.4); LYMPHOCYTES % (AUTO) 21 % (22-44); MD NO; MEAN CORPUSCULAR HEMOGLOBIN 31.2 pg (27.5-34.5); MEAN CORPUSCULAR HGB CONC 34.5 g/dL (33.2-36.2); MEAN CORPUSCULAR VOLUME 90.5 fL (81-97); MEAN PLATELET VOLUME 7.1 fL (7.4-10.4); MONOCYTES # (AUTO) 0.29 x10^3/uL (0.2-0.8); MONOCYTES % (AUTO) 3 % (2-9); NEUTROPHILS # (AUTO) 7.15 x10^3/uL (1.8-6.8); NEUTROPHILS % (AUTO) 73 % (42-75); PLATELET COUNT 227 x10^3/uL (130-400); RED BLOOD COUNT 4.74 x10^6/uL (4.38-5.82); RED CELL DISTRIBUTION WIDTH 12.9 % (9.4-14.8)
[2017-06-12 05:26] LABS: ANION GAP 10 mmol/L (5-15); CALCIUM 7.7 mg/dL (8.5-10.1); CHLORIDE 109 mmol/L (98-107); CREATININE 0.82 mg/dL (0.7-1.3)
[2017-06-12 06:57] VITALS: BP 117/72
[2017-06-12] MEDS: METOPROLOL SUCCINATE 25 MG TAB.ER.24H PO SCH (07:50)
[2017-06-12 12:54] VITALS: BP 135/67
[2017-06-12] MEDS ORDERED: HYDROcodone/APAP 5/325 TABLET PO PRN (13:00)
[2017-06-12] MEDS ORDERED: POTASSIUM CHLORIDE 20 MEQ TAB.ER.PRT PO ONE (13:00)
[2017-06-12] MEDS ORDERED: ENOXAPARIN 40 MG/0.4 ML SQ SCH (13:00)
[2017-06-12] MEDS: LACTOBACILLUS CHEW TABLET PO SCH ×3 (13:09→20:48)
[2017-06-12] MEDS ORDERED: IBUPROFEN 200 MG TABLET PO PRN (15:00)
[2017-06-12 16:40] LABS: AMPHETAMINE SCREEN, URINE Negative (Negative); BARBITURATE SCREEN, URINE Negative (Negative); BENZODIAZEPINE SCREEN, URINE Negative (Negative); CANNABINOID SCREEN, URINE Negative (Negative)
[2017-06-12 16:42] LABS: COCAINE SCREEN, URINE Negative (Negative); METHADONE SCREEN, URINE Negative (Negative); OPIATE SCREEN, URINE Positive (Negative)
[2017-06-12] MEDS ORDERED: OLANZAPINE 5 MG TABLET PO SCH (17:00)
[2017-06-12] MEDS: IBUPROFEN 200 MG TABLET PO PRN (17:33)
[2017-06-12 19:07] VITALS: BP 136/72
[2017-06-12] MEDS: TRAZODONE 100MG TABLET PO SCH (20:44)
[2017-06-13 01:57] VITALS: BP 113/68
[2017-06-13 05:18] LABS: ANION GAP 8 mmol/L (5-15); CALCIUM 7.9 mg/dL (8.5-10.1); CHLORIDE 112 mmol/L (98-107)
[2017-06-13 05:19] LABS: CREATININE 0.58 mg/dL (0.7-1.3)
[2017-06-13] MEDS: CLINDAMYCIN PMX 600MG/50ML 50 ML IV SCH ×2 (05:53→12:46)
[2017-06-13 07:33] VITALS: BP 111/69
[2017-06-13] MEDS: LACTOBACILLUS CHEW TABLET PO SCH ×2 (07:56→11:23)
[2017-06-13] MEDS: METOPROLOL SUCCINATE 25 MG TAB.ER.24H PO SCH (07:56)
[2017-06-13] MEDS ORDERED: OLANZAPINE 10 MG TABLET PO SCH (09:00)
[2017-06-13] MEDS ORDERED: IBUP-1484 PO (10:59)
[2017-06-13] MEDS ORDERED: CLIN300C8 PO (10:59)
[2017-06-13] MEDS ORDERED: ACID1TAB7 PO (10:59)
[2017-06-13] MEDS ORDERED: CALC200T24 PO (10:59)
[2017-06-13] MEDS ORDERED: CALCIUM CARBONATE 500 MG TAB.CHEW PO SCH (11:00)
[2017-06-13] MEDS: IBUPROFEN 200 MG TABLET PO PRN (11:23)
[2017-06-13 11:48] LABS: CLOSTRIDIUM DIFFICILE ANTIGEN NEGATIVE; CLOSTRIDIUM DIFFICILE TOXIN NEGATIVE (Negative)
== END 2017-06-13 13:25 | disposition home or self-care (01) | DRG 300 ==
LOC: ED 23:59 → EDIP 06-11 02:05 → 4NOR 06-11 02:12
PROVIDERS: ADMIT Hospitalist; ATTEND Hospitalist
DX: I80.8 Phlebitis and thrombophlebitis of other sites (principal); E44.1 Mild protein-calorie malnutrition; L03.113 Cellulitis of right upper limb; E83.51 Hypocalcemia; F32.9 Major depressive disorder, single episode, unspecified; E87.6 Hypokalemia; F15.10 Other stimulant abuse, uncomplicated; I10 Essential (primary) hypertension; R19.7 Diarrhea, unspecified; F14.10 Cocaine abuse, uncomplicated; Z68.28 Body mass index [BMI] 28.0-28.9, adult
CPT/HCPCS: 36415; 80048; 80202; 80307; 82040; 82330; 83735; 84100; 85025; 87324; 96365; 96366; 96368; 96375; J1650; J2274; J3370; Q9967; J7050; J7120

== ENCOUNTER 2017-06-21 05:34 | Inpatient (IN) | payer MEDICARE, MEDICAID ==
[~2017-06-21] VITALS: Ht 177.8 cm; Wt 93.9 kg
[~2017-06-21 05:34] MED LIST changes: +ACID1TAB7 PO; +ASPI-515 PO; +CALC200T24 PO; +CLIN300C8 PO; +IBUP-1484 PO; +METO-282 PO; +TRAZ100T15 PO
[2017-06-21] MEDS ORDERED: FENTANYL PF 100 MCG/2ML IV ONE (06:00)
[2017-06-21] MEDS ORDERED: DIPH,PERTUSS(ACELL),TET VAC/PF 0.5 ML IM-VACC ONE ×2 (06:00→06:22)
[2017-06-21] MEDS ORDERED: FENTANYL PF 100 MCG/2ML ONE ×3 (06:17→15:12)
[2017-06-21 06:38] LABS: BASOPHILS # (AUTO) 0.03 x10^3/uL (0-0.1); BASOPHILS % (AUTO) 0 % (0-1); EOSINOPHILS # (AUTO) 0.02 x10^3/uL (0-0.4); EOSINOPHILS % (AUTO) 0 % (1-7); LYMPHOCYTES # (AUTO) 1.15 x10^3/uL (1-3.4); LYMPHOCYTES % (AUTO) 7 % (22-44); MD NO; MEAN CORPUSCULAR HEMOGLOBIN 31.3 pg (27.5-34.5); MEAN CORPUSCULAR HGB CONC 34.5 g/dL (33.2-36.2); MEAN CORPUSCULAR VOLUME 90.7 fL (81-97); MEAN PLATELET VOLUME 7.2 fL (7.4-10.4); MONOCYTES # (AUTO) 0.93 x10^3/uL (0.2-0.8); MONOCYTES % (AUTO) 6 % (2-9); NEUTROPHILS # (AUTO) 13.84 x10^3/uL (1.8-6.8); NEUTROPHILS % (AUTO) 87 % (42-75); PLATELET COUNT 262 x10^3/uL (130-400); RED BLOOD COUNT 4.85 x10^6/uL (4.38-5.82); RED CELL DISTRIBUTION WIDTH 12.7 % (9.4-14.8)
[2017-06-21 06:47] LABS: ALBUMIN 3.2 g/dL (3.4-5.0); ANION GAP 8 mmol/L (5-15); CALCIUM 8.5 mg/dL (8.5-10.1); CHLORIDE 105 mmol/L (98-107)
[2017-06-21] MEDS ORDERED: CEFTRIAXONE PMX 1GM/50ML 50 ML IV ONE (09:00)
[2017-06-21] MEDS ORDERED: VANCOMYCIN PMX 1GM/200ML 200 ML IV ONE (09:00)
[2017-06-21] MEDS ORDERED: CEFTRIAXONE PMX 1GM/50ML 50 ML ONE (09:05)
[2017-06-21] MEDS: OLANZAPINE 10 MG TABLET PO SCH (12:00)
[2017-06-21] MEDS ORDERED: hydrALAzine 20 MG/ML, 1ML IVPush PRN (12:00)
[2017-06-21] MEDS ORDERED: VANCOMYCIN PER PHARMACY MC PRN (12:00)
[2017-06-21] MEDS: SENNA/DOCUSATE TABLET PO SCH (12:00)
[2017-06-21] MEDS ORDERED: LABETALOL 5MG/ML, 20ML IVPush PRN (12:00)
[2017-06-21] MEDS ORDERED: POLYETHYLENE GLYCOL 17 GM PACKET PO PRN (12:00)
[2017-06-21] MEDS ORDERED: PHARMACOKINETIC MONITORING MC PRN (12:30)
[2017-06-21] MEDS ORDERED: PHARMACOKINETIC CONSULTATION MC ONE (12:30)
[2017-06-21 12:40] VITALS: BP 165/75
[2017-06-21] MEDS: LACTATED RINGERS 1,000 ML IV SCH (13:07)
[2017-06-21] MEDS: PIPERACILLIN/TAZO/PMX 4.5GM 100 ML IV SCH ×2 (13:07→20:29)
[2017-06-21] MEDS ORDERED: OMNIPAQUE 350 MG/ML, 100ML BOTTLE ONE (13:16)
[2017-06-21] MEDS ORDERED: PROPOFOL 10 MG/ML, 20ML ONE ×2 (14:37→14:38)
[2017-06-21] MEDS ORDERED: SUCCINYLCHOLINE 20 MG/ML, 10ML ONE (14:37)
[2017-06-21] MEDS ORDERED: ONDANSETRON ODT 8 MG ONE (14:38)
[2017-06-21] MEDS ORDERED: METOCLOPRAMIDE 5 MG/ML, 2ML ONE ×2 (14:38→14:53)
[2017-06-21] MEDS ORDERED: ROCURONIUM 10 MG/ML,10ML ONE ×2 (14:38→14:53)
[2017-06-21] MEDS ORDERED: VANCOMYCIN 1,000 MG ONE (14:54)
[2017-06-21] MEDS ORDERED: HYDROmorphone 1 MG/ML, 1ML IV PRN (15:00)
[2017-06-21] MEDS ORDERED: ONDANSETRON 2MG/ML, 2ML IVPush PRN (15:00)
[2017-06-21] MEDS ORDERED: ACETAMINOPHEN 325 MG TABLET PO PRN (15:00)
[2017-06-21] MEDS ORDERED: OXYcodone 5 MG/5 ML ORAL.SOL UDC PO PRN (15:00)
[2017-06-21] MEDS ORDERED: LABETALOL 5MG/ML, 20ML IV PRN (15:00)
[2017-06-21] MEDS ORDERED: PROMETHAZINE 12.5 MG SUPP PR PRN (15:00)
[2017-06-21] MEDS ORDERED: morphine SULFATE 10 MG/ML, 1ML IV PRN (15:00)
[2017-06-21] MEDS ORDERED: MEPERIDINE/PF 25MG/0.5ML IVPush PRN (15:00)
[2017-06-21] MEDS ORDERED: hydrALAzine 20 MG/ML, 1ML IV PRN (15:00)
[2017-06-21] MEDS ORDERED: FENTANYL PF 100 MCG/2ML IV PRN (15:00)
[2017-06-21] MEDS ORDERED: OXYcodone 5 MG/5 ML ORAL.SOL UDC ONE (15:25)
[2017-06-21] MEDS ORDERED: ACETAMINOPHEN 650 MG/20.3 ML UDC ONE (15:25)
[2017-06-21] MEDS ORDERED: ONDANSETRON ODT 4 MG PO PRN (15:30)
[2017-06-21 16:11] VITALS: BP 125/79
[2017-06-21 20:02] VITALS: BP 115/76
[2017-06-21] MEDS: VANCOMYCIN 2,000 MG in SODIUM CHLORIDE 0.9% 500 ML IV SCH (21:52)
[2017-06-21] MEDS: TRAZODONE 100MG TABLET PO SCH (21:53)
[2017-06-21] MEDS: ENOXAPARIN 40 MG/0.4 ML SQ SCH (22:00)
[2017-06-21] MEDS: HYDROcodone/APAP 5/325 TABLET PO PRN (23:31)
[2017-06-21 23:50] VITALS: BP 98/55
[2017-06-22] MEDS: LACTATED RINGERS 1,000 ML IV SCH ×3 (03:37→22:31)
[2017-06-22 03:38] VITALS: BP 100/57
[2017-06-22] MEDS: HYDROcodone/APAP 5/325 TABLET PO PRN ×2 (04:38→20:46)
[2017-06-22] MEDS: PIPERACILLIN/TAZO/PMX 4.5GM 100 ML IV SCH ×3 (04:38→20:32)
[2017-06-22 05:22] LABS: MEAN CORPUSCULAR HEMOGLOBIN 30.6 pg (27.5-34.5); MEAN CORPUSCULAR HGB CONC 33.7 g/dL (33.2-36.2); MEAN CORPUSCULAR VOLUME 90.9 fL (81-97); MEAN PLATELET VOLUME 7.3 fL (7.4-10.4); PLATELET COUNT 264 x10^3/uL (130-400); RED BLOOD COUNT 4.33 x10^6/uL (4.38-5.82); RED CELL DISTRIBUTION WIDTH 12.5 % (9.4-14.8)
[2017-06-22] MEDS: ALPRazolam 1MG TABLET PO PRN ×2 (05:34→13:41)
[2017-06-22 05:36] LABS: CHLORIDE 107 mmol/L (98-107)
[2017-06-22 05:43] LABS: ANION GAP 8 mmol/L (5-15); CALCIUM 8.2 mg/dL (8.5-10.1); CREATININE 0.59 mg/dL (0.7-1.3)
[2017-06-22 05:58] LABS: BASOPHILS # (AUTO) 0.05 x10^3/uL (0-0.1); BASOPHILS % (AUTO) 0 % (0-1); EOSINOPHILS % (AUTO) 0 % (1-7); LYMPHOCYTES # (AUTO) 1.42 x10^3/uL (1-3.4); LYMPHOCYTES % (AUTO) 8 % (22-44); MD SCAN; MONOCYTES # (AUTO) 1.06 x10^3/uL (0.2-0.8); MONOCYTES % (AUTO) 6 % (2-9); NEUTROPHILS # (AUTO) 16.21 x10^3/uL (1.8-6.8); NEUTROPHILS % (AUTO) 87 % (42-75)
[2017-06-22 08:18] VITALS: BP 133/69
[2017-06-22] MEDS: ASPIRIN 81 MG TABLET EC PO SCH (09:23)
[2017-06-22] MEDS: OLANZAPINE 10 MG TABLET PO SCH (09:23)
[2017-06-22] MEDS: SENNA/DOCUSATE TABLET PO SCH (09:23)
[2017-06-22] MEDS: VANCOMYCIN 2,000 MG in SODIUM CHLORIDE 0.9% 500 ML IV SCH ×2 (09:25→22:31)
[2017-06-22 12:45] VITALS: BP 107/68
[2017-06-22 19:35] VITALS: BP 103/63
[2017-06-22] MEDS: ENOXAPARIN 40 MG/0.4 ML SQ SCH (19:47)
[2017-06-22] MEDS: TRAZODONE 100MG TABLET PO SCH (20:32)
[2017-06-23 02:10] VITALS: BP 101/64
[2017-06-23] MEDS: HYDROcodone/APAP 5/325 TABLET PO PRN ×4 (02:13→21:10)
[2017-06-23] MEDS: ALPRazolam 1MG TABLET PO PRN ×2 (02:13→14:39)
[2017-06-23] MEDS: PIPERACILLIN/TAZO/PMX 4.5GM 100 ML IV SCH ×2 (04:32→13:36)
[2017-06-23 06:37] VITALS: BP 126/83
[2017-06-23] MEDS: OLANZAPINE 10 MG TABLET PO SCH (09:18)
[2017-06-23] MEDS: SENNA/DOCUSATE TABLET PO SCH (09:18)
[2017-06-23] MEDS: LACTATED RINGERS 1,000 ML IV SCH ×2 (09:18→16:49)
[2017-06-23] MEDS: VANCOMYCIN 2,000 MG in SODIUM CHLORIDE 0.9% 500 ML IV SCH ×2 (09:18→21:10)
[2017-06-23] MEDS: ASPIRIN 81 MG TABLET EC PO SCH (09:23)
[2017-06-23 13:20] VITALS: BP 143/87
[2017-06-23 20:41] VITALS: BP 119/79
[2017-06-23] MEDS: ENOXAPARIN 40 MG/0.4 ML SQ SCH (21:10)
[2017-06-23] MEDS: TRAZODONE 100MG TABLET PO SCH (21:11)
[2017-06-24] MEDS: ALPRazolam 1MG TABLET PO PRN (01:36)
[2017-06-24] MEDS: HYDROcodone/APAP 5/325 TABLET PO PRN ×2 (01:36→08:14)
[2017-06-24 03:12] VITALS: BP 121/80
[2017-06-24 07:34] LABS: ANION GAP 7 mmol/L (5-15); CALCIUM 8.5 mg/dL (8.5-10.1); CHLORIDE 108 mmol/L (98-107)
[2017-06-24 07:35] LABS: BASOPHILS # (AUTO) 0.03 x10^3/uL (0-0.1); BASOPHILS % (AUTO) 0 % (0-1); EOSINOPHILS % (AUTO) 1 % (1-7); LYMPHOCYTES # (AUTO) 2.98 x10^3/uL (1-3.4); LYMPHOCYTES % (AUTO) 25 % (22-44); MD NO; MEAN CORPUSCULAR HEMOGLOBIN 30.9 pg (27.5-34.5); MEAN CORPUSCULAR HGB CONC 34.1 g/dL (33.2-36.2); MEAN CORPUSCULAR VOLUME 90.6 fL (81-97); MEAN PLATELET VOLUME 6.7 fL (7.4-10.4); MONOCYTES # (AUTO) 0.29 x10^3/uL (0.2-0.8); MONOCYTES % (AUTO) 2 % (2-9); NEUTROPHILS % (AUTO) 72 % (42-75); PLATELET COUNT 382 x10^3/uL (130-400); RED BLOOD COUNT 4.69 x10^6/uL (4.38-5.82); RED CELL DISTRIBUTION WIDTH 12.9 % (9.4-14.8)
[2017-06-24] MEDS ORDERED: CEFD300C37 PO (07:54)
[2017-06-24] MEDS ORDERED: CEFDINIR 300 MG CAPSULE PO SCH (08:00)
[2017-06-24 08:06] VITALS: BP 147/91
[2017-06-24] MEDS: ASPIRIN 81 MG TABLET EC PO SCH (08:10)
[2017-06-24] MEDS: SENNA/DOCUSATE TABLET PO SCH (08:10)
[2017-06-24] MEDS: OLANZAPINE 10 MG TABLET PO SCH (08:11)
== END 2017-06-24 13:46 | disposition home or self-care (01) | DRG 854 ==
LOC: ED 05:42 → EDIP 09:08 → 4NOR 10:40 → DCLOUNGE 06-24 13:32
PROVIDERS: ADMIT Hospitalist; ATTEND Hospitalist
PROC: 0J9G0ZZ Drainage of Right Lower Arm Subcutaneous Tissue and Fascia, Open Approach (ICD-10-PCS; principal; 2017-06-21 14:30)
DX: A41.9 Sepsis, unspecified organism (principal); L02.413 Cutaneous abscess of right upper limb; F20.9 Schizophrenia, unspecified; L03.113 Cellulitis of right upper limb; F17.210 Nicotine dependence, cigarettes, uncomplicated; F29 Unspecified psychosis not due to a substance or known physiological condition; I10 Essential (primary) hypertension; F31.9 Bipolar disorder, unspecified; G40.909 Epilepsy, unspecified, not intractable, without status epilepticus; R73.9 Hyperglycemia, unspecified
CPT/HCPCS: 36415; 80048; 82040; 83605; 83735; 85025; 87040; 87070; 87075; 87077; 87205; 90715; J0696; J1650; J2543; J2704; J3010; J3370; Q0162; Q9967; J0330; J2765; J7040; J7120

== ENCOUNTER → 2017-06-30 | Outpatient (CLI) | payer MEDICARE, MEDICAID ==
[~2017-06-30] MED LIST changes: +CEFD300C37 PO
== END | disposition home or self-care (01) ==
LOC: WOUND 11:08
PROVIDERS: ATTEND Internal Medicine
DX: T81.31XD Disruption of external operation (surgical) wound, not elsewhere classified, subsequent encounter (principal); L03.113 Cellulitis of right upper limb; L02.413 Cutaneous abscess of right upper limb; F41.9 Anxiety disorder, unspecified; F31.9 Bipolar disorder, unspecified; I10 Essential (primary) hypertension; F15.10 Other stimulant abuse, uncomplicated; F20.9 Schizophrenia, unspecified; M19.90 Unspecified osteoarthritis, unspecified site; F17.210 Nicotine dependence, cigarettes, uncomplicated; F12.10 Cannabis abuse, uncomplicated; F10.20 Alcohol dependence, uncomplicated; Y83.8 Other surgical procedures as the cause of abnormal reaction of the patient, or of later complication, without mention of misadventure at the time of the procedure
CPT/HCPCS: 99213

== ENCOUNTER 2017-07-01 22:59 | Emergency (ER) | payer MEDICARE, MEDICAID ==
[~2017-07-01] VITALS: Ht 177.8 cm; Wt 95.0 kg
[2017-07-01 23:30] LABS: BASOPHILS # (AUTO) 0.07 x10^3/uL (0-0.1); BASOPHILS % (AUTO) 1 % (0-1); EOSINOPHILS # (AUTO) 0.12 x10^3/uL (0-0.4); EOSINOPHILS % (AUTO) 1 % (1-7); LYMPHOCYTES # (AUTO) 3.38 x10^3/uL (1-3.4); LYMPHOCYTES % (AUTO) 29 % (22-44); MD NO; MEAN CORPUSCULAR HEMOGLOBIN 30.6 pg (27.5-34.5); MEAN CORPUSCULAR HGB CONC 34.2 g/dL (33.2-36.2); MEAN CORPUSCULAR VOLUME 89.4 fL (81-97); MEAN PLATELET VOLUME 6.3 fL (7.4-10.4); MONOCYTES # (AUTO) 0.52 x10^3/uL (0.2-0.8); MONOCYTES % (AUTO) 4 % (2-9); NEUTROPHILS # (AUTO) 7.74 x10^3/uL (1.8-6.8); NEUTROPHILS % (AUTO) 65 % (42-75); PLATELET COUNT 367 x10^3/uL (130-400); RED BLOOD COUNT 4.96 x10^6/uL (4.38-5.82); RED CELL DISTRIBUTION WIDTH 13.3 % (9.4-14.8)
[2017-07-01 23:43] LABS: ALBUMIN 3.6 g/dL (3.4-5.0); ANION GAP 12 mmol/L (5-15); CALCIUM 8.7 mg/dL (8.5-10.1); CHLORIDE 111 mmol/L (98-107); CREATININE 0.87 mg/dL (0.7-1.3)
[2017-07-01 23:47] LABS: TROPONIN I < 0.015 ng/mL (0.000-0.045)
[2017-07-02] MEDS ORDERED: methylPREDNISolone SOD SUCC 125 MG/2 ML IVPush ONE
[2017-07-02] MEDS ORDERED: methylPREDNISolone SOD SUCC 125 MG/2 ML ONE (00:16)
[2017-07-02] MEDS ORDERED: OMNIPAQUE 350 MG/ML, 100ML BOTTLE ONE (00:42)
[2017-07-02 01:07] VITALS: BP 130/63
[2017-07-02] MEDS ORDERED: HYDROcodone/APAP 5/325 TABLET PO PRN (01:30)
== END 2017-07-02 01:59 | disposition home or self-care (01) ==
LOC: ED 23:06
DX: R07.89 Other chest pain (principal); I10 Essential (primary) hypertension; M19.90 Unspecified osteoarthritis, unspecified site; G43.909 Migraine, unspecified, not intractable, without status migrainosus; F20.9 Schizophrenia, unspecified; F31.9 Bipolar disorder, unspecified; F41.9 Anxiety disorder, unspecified; F17.200 Nicotine dependence, unspecified, uncomplicated; F15.10 Other stimulant abuse, uncomplicated; Z88.1 Allergy status to other antibiotic agents; Z88.8 Allergy status to other drugs, medicaments and biological substances; Z88.0 Allergy status to penicillin; Z79.899 Other long term (current) drug therapy
CPT/HCPCS: 36415; 71045; 71275; 80048; 80307; 82040; 83690; 84484; 85025; 93005; 96374; 99285; J2930; Q9967

== ENCOUNTER → 2017-07-02 | Outpatient (CLI) | payer MEDICARE, MEDICAID | END | disposition home or self-care (01) | LOC: WOUND 09:58 | PROVIDERS: ATTEND Internal Medicine | DX: T81.31XD Disruption of external operation (surgical) wound, not elsewhere classified, subsequent encounter (principal); I10 Essential (primary) hypertension; G43.909 Migraine, unspecified, not intractable, without status migrainosus; M19.90 Unspecified osteoarthritis, unspecified site; F19.10 Other psychoactive substance abuse, uncomplicated; F17.210 Nicotine dependence, cigarettes, uncomplicated; F12.10 Cannabis abuse, uncomplicated; F31.9 Bipolar disorder, unspecified; F41.9 Anxiety disorder, unspecified; F20.9 Schizophrenia, unspecified; F15.10 Other stimulant abuse, uncomplicated; Z86.19 Personal history of other infectious and parasitic diseases; Z79.899 Other long term (current) drug therapy; Z68.29 Body mass index [BMI] 29.0-29.9, adult; Y83.8 Other surgical procedures as the cause of abnormal reaction of the patient, or of later complication, without mention of misadventure at the time of the procedure | CPT/HCPCS: G0463; WOU0463 ==

== ENCOUNTER → 2017-07-04 | Outpatient (CLI) | payer MEDICARE, MEDICAID | END | disposition home or self-care (01) | LOC: WOUND 08:46 | PROVIDERS: ATTEND Family Medicine | DX: T81.31XD Disruption of external operation (surgical) wound, not elsewhere classified, subsequent encounter (principal); I10 Essential (primary) hypertension; L02.413 Cutaneous abscess of right upper limb; M19.90 Unspecified osteoarthritis, unspecified site; F41.9 Anxiety disorder, unspecified; F31.9 Bipolar disorder, unspecified; F20.9 Schizophrenia, unspecified; F14.10 Cocaine abuse, uncomplicated; F15.10 Other stimulant abuse, uncomplicated; F12.10 Cannabis abuse, uncomplicated; F17.210 Nicotine dependence, cigarettes, uncomplicated; F10.20 Alcohol dependence, uncomplicated; Y83.8 Other surgical procedures as the cause of abnormal reaction of the patient, or of later complication, without mention of misadventure at the time of the procedure | CPT/HCPCS: 97597 ==

== ENCOUNTER → 2017-07-07 | Outpatient (CLI) | payer MEDICARE, MEDICAID | END | disposition home or self-care (01) | LOC: WOUND 10:45 | PROVIDERS: ATTEND Family Medicine | DX: T81.31XD Disruption of external operation (surgical) wound, not elsewhere classified, subsequent encounter (principal); G43.909 Migraine, unspecified, not intractable, without status migrainosus; I10 Essential (primary) hypertension; M19.90 Unspecified osteoarthritis, unspecified site; F20.9 Schizophrenia, unspecified; F19.10 Other psychoactive substance abuse, uncomplicated; F31.9 Bipolar disorder, unspecified; F41.9 Anxiety disorder, unspecified; F17.210 Nicotine dependence, cigarettes, uncomplicated; F14.10 Cocaine abuse, uncomplicated; F15.10 Other stimulant abuse, uncomplicated; Z86.19 Personal history of other infectious and parasitic diseases; Z79.899 Other long term (current) drug therapy; Z68.28 Body mass index [BMI] 28.0-28.9, adult; Y83.8 Other surgical procedures as the cause of abnormal reaction of the patient, or of later complication, without mention of misadventure at the time of the procedure | CPT/HCPCS: G0463; WOU0463 ==

== ENCOUNTER → 2017-07-09 | Outpatient (CLI) | payer MEDICARE, MEDICAID | END | disposition home or self-care (01) | LOC: WOUND 10:46 | PROVIDERS: ATTEND Family Medicine | DX: T81.31XD Disruption of external operation (surgical) wound, not elsewhere classified, subsequent encounter (principal); G43.909 Migraine, unspecified, not intractable, without status migrainosus; I10 Essential (primary) hypertension; M19.90 Unspecified osteoarthritis, unspecified site; F19.10 Other psychoactive substance abuse, uncomplicated; F31.9 Bipolar disorder, unspecified; F20.9 Schizophrenia, unspecified; F17.210 Nicotine dependence, cigarettes, uncomplicated; F14.10 Cocaine abuse, uncomplicated; F15.10 Other stimulant abuse, uncomplicated; F41.9 Anxiety disorder, unspecified; Z86.19 Personal history of other infectious and parasitic diseases; Z79.899 Other long term (current) drug therapy; Z68.29 Body mass index [BMI] 29.0-29.9, adult; Y83.8 Other surgical procedures as the cause of abnormal reaction of the patient, or of later complication, without mention of misadventure at the time of the procedure | CPT/HCPCS: G0463; WOU0463 ==

== ENCOUNTER 2017-07-12 10:52 | Emergency (ER) | payer MEDICARE, MEDICAID ==
[~2017-07-12] VITALS: Ht 175.3 cm; Wt 88.3 kg
[2017-07-12 11:44] LABS: AMPHETAMINE SCREEN, URINE Negative (Negative); BARBITURATE SCREEN, URINE Negative (Negative); BENZODIAZEPINE SCREEN, URINE Negative (Negative); CANNABINOID SCREEN, URINE Positive (Negative); COCAINE SCREEN, URINE Negative (Negative); METHADONE SCREEN, URINE Negative (Negative); OPIATE SCREEN, URINE Negative (Negative)
[2017-07-12 11:45] LABS: BASOPHILS # (AUTO) 0.03 x10^3/uL (0-0.1); BASOPHILS % (AUTO) 1 % (0-1); EOSINOPHILS % (AUTO) 2 % (1-7); LYMPHOCYTES # (AUTO) 1.67 x10^3/uL (1-3.4); LYMPHOCYTES % (AUTO) 30 % (22-44); MD NO; MEAN CORPUSCULAR HEMOGLOBIN 30.7 pg (27.5-34.5); MEAN CORPUSCULAR HGB CONC 34.1 g/dL (33.2-36.2); MEAN CORPUSCULAR VOLUME 89.9 fL (81-97); MEAN PLATELET VOLUME 7.3 fL (7.4-10.4); MONOCYTES # (AUTO) 0.26 x10^3/uL (0.2-0.8); MONOCYTES % (AUTO) 5 % (2-9); NEUTROPHILS # (AUTO) 3.44 x10^3/uL (1.8-6.8); NEUTROPHILS % (AUTO) 63 % (42-75); PLATELET COUNT 269 x10^3/uL (130-400); RED BLOOD COUNT 4.76 x10^6/uL (4.38-5.82); RED CELL DISTRIBUTION WIDTH 13.2 % (9.4-14.8)
[2017-07-12 11:55] LABS: ALANINE AMINOTRANSFERASE 45 U/L (12-78); ALBUMIN 3.5 g/dL (3.4-5.0); ANION GAP 7 mmol/L (5-15); CALCIUM 7.9 mg/dL (8.5-10.1); CHLORIDE 111 mmol/L (98-107); CREATININE 0.77 mg/dL (0.7-1.3)
[2017-07-12 11:58] LABS: ALKALINE PHOSPHATASE 65 U/L (45-117); BILIRUBIN,TOTAL 0.4 mg/dL (0.2-1.0)
[2017-07-12 11:59] LABS: ACETAMINOPHEN < 2 mcg/mL (10-30); SALICYLATE LEVEL < 1.7 mg/dL (2.8-20.0)
[2017-07-12 16:31] VITALS: BP 121/87
== END 2017-07-12 16:33 | disposition home or self-care (01) ==
LOC: ED 13:12
DX: F33.1 Major depressive disorder, recurrent, moderate (principal); F20.9 Schizophrenia, unspecified; F31.9 Bipolar disorder, unspecified; G43.909 Migraine, unspecified, not intractable, without status migrainosus; I10 Essential (primary) hypertension; G40.909 Epilepsy, unspecified, not intractable, without status epilepticus
CPT/HCPCS: 36415; 80053; 80307; 80329; 85025; 99284; G0480

== ENCOUNTER 2017-08-18 18:38 | Emergency (ER) | payer MEDICARE, MEDICAID ==
[~2017-08-18] VITALS: Ht 177.8 cm; Wt 86.0 kg
[2017-08-18 19:22] LABS: BASOPHILS # (AUTO) 0.06 x10^3/uL (0-0.1); BASOPHILS % (AUTO) 1 % (0-1); EOSINOPHILS # (AUTO) 0.16 x10^3/uL (0-0.4); EOSINOPHILS % (AUTO) 2 % (1-7); LYMPHOCYTES # (AUTO) 2.27 x10^3/uL (1-3.4); LYMPHOCYTES % (AUTO) 24 % (22-44); MD NO; MEAN CORPUSCULAR HGB CONC 34.5 g/dL (33.2-36.2); MEAN CORPUSCULAR VOLUME 89.9 fL (81-97); MEAN PLATELET VOLUME 7.4 fL (7.4-10.4); MONOCYTES # (AUTO) 0.41 x10^3/uL (0.2-0.8); MONOCYTES % (AUTO) 4 % (2-9); NEUTROPHILS # (AUTO) 6.59 x10^3/uL (1.8-6.8); NEUTROPHILS % (AUTO) 69 % (42-75); PLATELET COUNT 261 x10^3/uL (130-400); RED BLOOD COUNT 5.08 x10^6/uL (4.38-5.82); RED CELL DISTRIBUTION WIDTH 13.7 % (9.4-14.8)
[2017-08-18 19:33] LABS: ACETAMINOPHEN < 2 mcg/mL (10-30); ANION GAP 8 mmol/L (5-15); CALCIUM 8.6 mg/dL (8.5-10.1); CHLORIDE 109 mmol/L (98-107); CREATININE 0.95 mg/dL (0.7-1.3); SALICYLATE LEVEL 2.9 mg/dL (2.8-20.0)
[2017-08-18 20:02] LABS: AMPHETAMINE SCREEN, URINE Negative (Negative); BARBITURATE SCREEN, URINE Negative (Negative); BENZODIAZEPINE SCREEN, URINE Negative (Negative); CANNABINOID SCREEN, URINE Positive (Negative); COCAINE SCREEN, URINE Negative (Negative); METHADONE SCREEN, URINE Negative (Negative); OPIATE SCREEN, URINE Negative (Negative)
[2017-08-18 21:47] VITALS: BP 132/89
== END 2017-08-18 22:59 | disposition home or self-care (01) ==
LOC: ED 20:53
DX: F28 Other psychotic disorder not due to a substance or known physiological condition (principal); F20.9 Schizophrenia, unspecified; F31.9 Bipolar disorder, unspecified; M19.90 Unspecified osteoarthritis, unspecified site; G43.909 Migraine, unspecified, not intractable, without status migrainosus; F15.10 Other stimulant abuse, uncomplicated; I10 Essential (primary) hypertension; G40.909 Epilepsy, unspecified, not intractable, without status epilepticus
CPT/HCPCS: 36415; 80048; 80307; 80329; 82040; 85025; 99284; G0480

== ENCOUNTER 2017-10-05 11:07 | Observation (INO) | payer MEDICARE, MEDICAID ==
[~2017-10-05] VITALS: Ht 177.8 cm; Wt 80.5 kg
[~2017-10-05 11:07] MED LIST changes: +TRAZ-137 PO; -TRAZ100T15 PO
[2017-10-05 11:49] LABS: BASOPHILS # (AUTO) 0.03 x10^3/uL (0-0.1); BASOPHILS % (AUTO) 0 % (0-1); EOSINOPHILS % (AUTO) 1 % (1-7); LYMPHOCYTES # (AUTO) 1.52 x10^3/uL (1-3.4); LYMPHOCYTES % (AUTO) 18 % (22-44); MD NO; MEAN CORPUSCULAR HGB CONC 34.7 g/dL (33.2-36.2); MEAN CORPUSCULAR VOLUME 89.3 fL (81-97); MEAN PLATELET VOLUME 7.4 fL (7.4-10.4); MONOCYTES # (AUTO) 0.38 x10^3/uL (0.2-0.8); MONOCYTES % (AUTO) 5 % (2-9); NEUTROPHILS # (AUTO) 6.25 x10^3/uL (1.8-6.8); NEUTROPHILS % (AUTO) 76 % (42-75); PLATELET COUNT 246 x10^3/uL (130-400); RED BLOOD COUNT 4.88 x10^6/uL (4.38-5.82); RED CELL DISTRIBUTION WIDTH 14.3 % (9.4-14.8)
[2017-10-05 12:07] LABS: ALBUMIN 3.7 g/dL (3.4-5.0); ANION GAP 5 mmol/L (5-15); CALCIUM 8.2 mg/dL (8.5-10.1); CHLORIDE 108 mmol/L (98-107); CREATININE 0.82 mg/dL (0.7-1.3); SALICYLATE LEVEL 3.5 mg/dL (2.8-20.0)
[2017-10-05 12:11] LABS: ACETAMINOPHEN < 2 mcg/mL (10-30)
[2017-10-05 13:25] LABS: AMPHETAMINE SCREEN, URINE Positive (Negative); BARBITURATE SCREEN, URINE Negative (Negative); BENZODIAZEPINE SCREEN, URINE Negative (Negative); CANNABINOID SCREEN, URINE Positive (Negative); COCAINE SCREEN, URINE Negative (Negative); METHADONE SCREEN, URINE Negative (Negative); OPIATE SCREEN, URINE Negative (Negative)
[2017-10-05] MEDS ORDERED: LORazepam 0.5MG TABLET PO ONE (17:30)
[2017-10-05] MEDS ORDERED: LORazepam 0.5MG TABLET ONE (17:42)
[2017-10-05] MEDS ORDERED: POLYETHYLENE GLYCOL 17 GM PACKET PO PRN ×2 (19:30→21:00)
[2017-10-05] MEDS ORDERED: ACETAMINOPHEN 325 MG TABLET PO PRN ×2 (19:30→21:00)
[2017-10-05] MEDS ORDERED: LORazepam 1MG TABLET PO PRN ×2 (19:30→21:00)
[2017-10-05] MEDS ORDERED: ONDANSETRON ODT 4 MG PO PRN ×2 (19:30→21:00)
[2017-10-05] MEDS ORDERED: BISACODYL 10 MG SUPP PR PRN ×2 (19:30→21:00)
[2017-10-05] MEDS ORDERED: NICOTINE 21 MG/24 HR PATCH.TD24 TD SCH ×2 (19:30→21:00)
[2017-10-05 20:55] VITALS: BP 124/82
[2017-10-05] MEDS ORDERED: QUETIAPINE 100MG TABLET PO SCH (21:00)
[2017-10-05] MEDS ORDERED: DOCUSATE 100 MG CAPSULE PO SCH (21:00)
[2017-10-05] MEDS: DOCUSATE 100 MG CAPSULE PO SCH (21:18)
[2017-10-06 05:50] VITALS: BP 111/72
[2017-10-06] MEDS ORDERED: METOPROLOL SUCCINATE 25 MG TAB.ER.24H PO SCH (06:00)
[2017-10-06 07:57] VITALS: BP 119/75
[2017-10-06] MEDS: DOCUSATE 100 MG CAPSULE PO SCH (09:00)
== END 2017-10-06 13:00 ==
LOC: ED 12:15 → EDIP 17:15 → 2N 20:53
PROVIDERS: ADMIT Hospitalist; ATTEND Hospitalist
DX: R45.851 Suicidal ideations (principal); I10 Essential (primary) hypertension; J45.909 Unspecified asthma, uncomplicated; F32.9 Major depressive disorder, single episode, unspecified; R44.3 Hallucinations, unspecified; B19.20 Unspecified viral hepatitis C without hepatic coma; F17.200 Nicotine dependence, unspecified, uncomplicated; E11.9 Type 2 diabetes mellitus without complications; F12.90 Cannabis use, unspecified, uncomplicated; F15.90 Other stimulant use, unspecified, uncomplicated; F41.1 Generalized anxiety disorder
CPT/HCPCS: 36415; 80048; 80307; 80329; 82040; 85025; 99285; G0378; G0480

== ENCOUNTER 2017-11-21 17:51 | Emergency (ER) | payer MEDICARE, MEDICAID ==
[~2017-11-21] VITALS: Ht 177.8 cm; Wt 75.6 kg
[~2017-11-21 17:51] MED LIST changes: -AMLO2.5T PO; +AMLO2.5T3 PO; -AMLO5TAB2 PO; +AMLO5TAB7 PO; -OXCA150T PO; +OXCA150T18 PO
[2017-11-21 18:08] VITALS: BP 140/100
[2017-11-21] MEDS ORDERED: DIPHENHYDRAMINE 25 MG CAPSULE ONE (18:16)
[2017-11-21] MEDS ORDERED: DIPHENHYDRAMINE 25 MG CAPSULE PO ONE (18:30)
[2017-11-21] MEDS ORDERED: ACETAMINOPHEN 325 MG TABLET ONE (18:42)
[2017-11-21] MEDS ORDERED: ACETAMINOPHEN 325 MG TABLET PO ONE (19:00)
== END 2017-11-21 19:34 | disposition home or self-care (01) ==
LOC: ED 19:28
DX: S09.8XXA Other specified injuries of head, initial encounter (principal); Z72.9 Problem related to lifestyle, unspecified; F15.20 Other stimulant dependence, uncomplicated; F31.9 Bipolar disorder, unspecified; F17.200 Nicotine dependence, unspecified, uncomplicated; I10 Essential (primary) hypertension
CPT/HCPCS: 72050; 99284; Q0163

== ENCOUNTER 2017-12-03 19:05 | Emergency (ER) | payer MEDICARE, MEDICAID ==
[~2017-12-03] VITALS: Ht 175.3 cm; Wt 77.5 kg
[2017-12-03 19:27] VITALS: BP 122/68
[2017-12-03 19:56] LABS: AMPHETAMINE SCREEN, URINE Negative (Negative); BARBITURATE SCREEN, URINE Negative (Negative); BENZODIAZEPINE SCREEN, URINE Negative (Negative); CANNABINOID SCREEN, URINE Negative (Negative); COCAINE SCREEN, URINE Negative (Negative); METHADONE SCREEN, URINE Negative (Negative); OPIATE SCREEN, URINE Negative (Negative)
[2017-12-03 20:03] LABS: ANION GAP 9 mmol/L (5-15); BASOPHILS # (AUTO) 0.04 x10^3/uL (0-0.1); BASOPHILS % (AUTO) 1 % (0-1); CALCIUM 8.8 mg/dL (8.5-10.1); CHLORIDE 112 mmol/L (98-107); EOSINOPHILS # (AUTO) 0.11 x10^3/uL (0-0.4); EOSINOPHILS % (AUTO) 2 % (1-7); LYMPHOCYTES # (AUTO) 2.47 x10^3/uL (1-3.4); LYMPHOCYTES % (AUTO) 35 % (22-44); MD NO; MEAN CORPUSCULAR HEMOGLOBIN 30.1 pg (27.5-34.5); MEAN CORPUSCULAR HGB CONC 33.8 g/dL (33.2-36.2); MEAN CORPUSCULAR VOLUME 89.2 fL (81-97); MEAN PLATELET VOLUME 7.6 fL (7.4-10.4); MONOCYTES # (AUTO) 0.36 x10^3/uL (0.2-0.8); MONOCYTES % (AUTO) 5 % (2-9); NEUTROPHILS # (AUTO) 4.19 x10^3/uL (1.8-6.8); NEUTROPHILS % (AUTO) 59 % (42-75); PLATELET COUNT 263 x10^3/uL (130-400); RED BLOOD COUNT 5.23 x10^6/uL (4.38-5.82); RED CELL DISTRIBUTION WIDTH 13.4 % (9.4-14.8)
[2017-12-03 20:04] LABS: CREATININE 0.68 mg/dL (0.7-1.3)
== END 2017-12-03 20:40 | disposition home or self-care (01) ==
LOC: ED 20:14
DX: S09.90XA Unspecified injury of head, initial encounter (principal); F20.9 Schizophrenia, unspecified; I10 Essential (primary) hypertension; F41.1 Generalized anxiety disorder; M19.90 Unspecified osteoarthritis, unspecified site; F31.9 Bipolar disorder, unspecified; F17.200 Nicotine dependence, unspecified, uncomplicated; W22.01XA Walked into wall, initial encounter; Y93.89 Activity, other specified; Y92.009 Unspecified place in unspecified non-institutional (private) residence as the place of occurrence of the external cause; Y99.8 Other external cause status
CPT/HCPCS: 36415; 80048; 80307; 85025; 93005; 99285

== ENCOUNTER 2017-12-08 08:17 | Emergency (ER) | payer MEDICARE, MEDICAID ==
[2017-12-08 08:21] VITALS: BP 130/86
[2017-12-08 08:56] LABS: BASOPHILS # (AUTO) 0.04 x10^3/uL (0-0.1); BASOPHILS % (AUTO) 0 % (0-1); EOSINOPHILS # (AUTO) 0.12 x10^3/uL (0-0.4); EOSINOPHILS % (AUTO) 1 % (1-7); LYMPHOCYTES # (AUTO) 2.55 x10^3/uL (1-3.4); LYMPHOCYTES % (AUTO) 30 % (22-44); MD NO; MEAN CORPUSCULAR HEMOGLOBIN 30.5 pg (27.5-34.5); MEAN CORPUSCULAR HGB CONC 34.3 g/dL (33.2-36.2); MEAN PLATELET VOLUME 7.5 fL (7.4-10.4); MONOCYTES # (AUTO) 0.29 x10^3/uL (0.2-0.8); MONOCYTES % (AUTO) 3 % (2-9); NEUTROPHILS # (AUTO) 5.41 x10^3/uL (1.8-6.8); NEUTROPHILS % (AUTO) 64 % (42-75); PLATELET COUNT 273 x10^3/uL (130-400); RED BLOOD COUNT 5.25 x10^6/uL (4.38-5.82); RED CELL DISTRIBUTION WIDTH 13.9 % (9.4-14.8)
[2017-12-08 09:07] LABS: ALBUMIN 4.1 g/dL (3.4-5.0); ANION GAP 9 mmol/L (5-15); CALCIUM 8.7 mg/dL (8.5-10.1); CHLORIDE 107 mmol/L (98-107); CREATININE 0.89 mg/dL (0.7-1.3)
[2017-12-08 09:08] LABS: ACETAMINOPHEN < 2 mcg/mL (10-30)
[2017-12-08 09:30] LABS: AMPHETAMINE SCREEN, URINE Negative (Negative); BARBITURATE SCREEN, URINE Negative (Negative); BENZODIAZEPINE SCREEN, URINE Negative (Negative); CANNABINOID SCREEN, URINE Positive (Negative); COCAINE SCREEN, URINE Negative (Negative); METHADONE SCREEN, URINE Negative (Negative); OPIATE SCREEN, URINE Negative (Negative)
== END 2017-12-08 10:42 | disposition home or self-care (01) ==
LOC: ED 09:17
DX: F31.9 Bipolar disorder, unspecified (principal); G40.909 Epilepsy, unspecified, not intractable, without status epilepticus; M19.90 Unspecified osteoarthritis, unspecified site; G43.909 Migraine, unspecified, not intractable, without status migrainosus; I10 Essential (primary) hypertension; F41.1 Generalized anxiety disorder; E11.9 Type 2 diabetes mellitus without complications
CPT/HCPCS: 36415; 80048; 80307; 80329; 82040; 85025; 99284; G0480

== ENCOUNTER 2018-03-21 14:14 | Emergency (ER) | payer MEDICARE, MEDICAID ==
[~2018-03-21] VITALS: Ht 177.8 cm; Wt 80.3 kg
[~2018-03-21 14:14] MED LIST changes: +AMLO-150 PO; -AMLO2.5T3 PO; +AMLO2.5T5 PO; -AMLO5TAB7 PO
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
--- NOTE | 2018-03-21 14:52 | NUR ---
Break RN note: Dr. Ewing at bedside to evaluate pt.
--- NOTE | 2018-03-21 15:33 | NUR ---
TASK RN: Patient/Caregiver given discharge instructions and they have confirmed that they understand the instructions. Patient ambulatory with steady gait.
[2018-03-21 15:34] VITALS: BP 143/85
== END 2018-03-21 15:35 | disposition home or self-care (01) ==
LOC: ED 14:35
DX: S16.1XXA Strain of muscle, fascia and tendon at neck level, initial encounter (principal); I10 Essential (primary) hypertension; E11.9 Type 2 diabetes mellitus without complications; F31.9 Bipolar disorder, unspecified; F20.9 Schizophrenia, unspecified; F41.1 Generalized anxiety disorder; Y04.0XXA Assault by unarmed brawl or fight, initial encounter; Y93.89 Activity, other specified; Y92.410 Unspecified street and highway as the place of occurrence of the external cause; Y99.8 Other external cause status
CPT/HCPCS: 99283

== ENCOUNTER 2018-03-29 01:51 | Emergency (ER) | payer MEDICARE, MEDICAID ==
[~2018-03-29] VITALS: Ht 177.8 cm; Wt 80.6 kg
--- NOTE | 2018-03-29 02:17 | NUR ---
PT PRESENTED WITH AFIB RVR. SPONT CONT. TO ST. PT CONTINUES TO FLIP IN AND OUT OF AFIB RVR AND ST. DR RODRIGUEZ NOTIFIED. PT IS ON CONT. SPO2, BP, CARDIAC, AND ZOLL MONITOR.
[2018-03-29 02:24] LABS: BASOPHILS # (AUTO) 0.05 x10^3/uL (0-0.1); BASOPHILS % (AUTO) 0 % (0-1); EOSINOPHILS # (AUTO) 0.07 x10^3/uL (0-0.4); EOSINOPHILS % (AUTO) 1 % (1-7); LYMPHOCYTES # (AUTO) 2.91 x10^3/uL (1-3.4); LYMPHOCYTES % (AUTO) 19 % (22-44); MD NO; MEAN CORPUSCULAR HEMOGLOBIN 31.1 pg (27.5-34.5); MEAN CORPUSCULAR HGB CONC 34.7 g/dL (33.2-36.2); MEAN CORPUSCULAR VOLUME 89.7 fL (81-97); MEAN PLATELET VOLUME 6.6 fL (7.4-10.4); MONOCYTES # (AUTO) 0.51 x10^3/uL (0.2-0.8); MONOCYTES % (AUTO) 3 % (2-9); NEUTROPHILS # (AUTO) 11.43 x10^3/uL (1.8-6.8); NEUTROPHILS % (AUTO) 76 % (42-75); PLATELET COUNT 369 x10^3/uL (130-400); RED BLOOD COUNT 5.13 x10^6/uL (4.38-5.82); RED CELL DISTRIBUTION WIDTH 13.4 % (9.4-14.8)
[2018-03-29] MEDS ORDERED: ADENOSINE 6 MG/2 ML IVPush ONE ×2 (02:30)
[2018-03-29 02:36] LABS: ALANINE AMINOTRANSFERASE 21 U/L (12-78); ALBUMIN 3.7 g/dL (3.4-5.0); ANION GAP 8 mmol/L (5-15); CALCIUM 8.4 mg/dL (8.5-10.1); CHLORIDE 109 mmol/L (98-107)
[2018-03-29 02:39] LABS: ALKALINE PHOSPHATASE 73 U/L (45-117); BILIRUBIN,TOTAL 0.6 mg/dL (0.2-1.0); CREATININE 0.76 mg/dL (0.7-1.3); TOTAL PROTEIN 7.5 g/dL (6.4-8.2)
--- NOTE | 2018-03-29 02:47 | NUR ---
PT REPORT FROM ASUNCION WATESR. THIS RN TO ASSUME CARE OF PT. AWAITING CXR RESULTS.
--- NOTE | 2018-03-29 03:18 | NUR ---
PT STATES HE DOES NOT WANT TO PROVIDE A UA. STATES "I KNOW WHAT YOU FUCKERS ARE TESTING FOR. UH UH, NOT GONNA HAPPEN."
[2018-03-29 03:19] VITALS: BP 141/91
--- NOTE | 2018-03-29 03:42 | NUR ---
PT HR CONSISTENTLY 80-90'S. MD AWARE. MD AT BEDSIDE FOR RECHECK.
[2018-03-29] MEDS ORDERED: DIPHENHYDRAMINE 25 MG CAPSULE ONE (03:55)
[2018-03-29] MEDS ORDERED: DIPHENHYDRAMINE 25 MG CAPSULE PO ONE (04:00)
== END 2018-03-29 04:36 | disposition home or self-care (01) ==
LOC: ED 02:10
DX: I47.1 Supraventricular tachycardia (principal); R94.31 Abnormal electrocardiogram [ECG] [EKG]; F41.9 Anxiety disorder, unspecified; Z72.9 Problem related to lifestyle, unspecified; E11.9 Type 2 diabetes mellitus without complications; I10 Essential (primary) hypertension; F31.9 Bipolar disorder, unspecified; G89.29 Other chronic pain; F17.200 Nicotine dependence, unspecified, uncomplicated
CPT/HCPCS: 36415; 71045; 80053; 80307; 83690; 83735; 85025; 93005; 99284; Q0163

== ENCOUNTER 2018-03-31 04:36 | Emergency (ER) | payer MEDICARE, MEDICAID ==
[~2018-03-31] VITALS: Ht 177.8 cm; Wt 75.0 kg
[2018-03-31 04:47] VITALS: BP 128/78
--- NOTE | 2018-03-31 05:32 | NUR ---
CALLED RADIOLOGY TO CHECK ON STATUS OF XRAY IT HAS NOT BEEN TAKEN WHEN WHOLESALE PARTS SALESPERSON ARRIVED TO TAKE XRAY WHILE ON PHONE TO CHECK STATUS.
--- NOTE | 2018-03-31 06:59 | NUR ---
Patient given discharge instructions and they have confirmed that they understand the instructions. Patient ambulatory with steady gait.
== END 2018-03-31 07:00 | disposition home or self-care (01) ==
LOC: ED 06:11
DX: S90.32XA Contusion of left foot, initial encounter (principal); Z72.9 Problem related to lifestyle, unspecified; I10 Essential (primary) hypertension; G43.909 Migraine, unspecified, not intractable, without status migrainosus; Z59.0 Homelessness; X50.1XXA Overexertion from prolonged static or awkward postures, initial encounter; Y93.89 Activity, other specified; Y92.410 Unspecified street and highway as the place of occurrence of the external cause; Y99.8 Other external cause status
CPT/HCPCS: 99283

== ENCOUNTER 2018-04-01 12:20 | Emergency (ER) | payer MEDICARE, MEDICAID ==
[2018-04-01 12:24] VITALS: BP 158/88
[2018-04-01] MEDS ORDERED: ZIPRASIDONE 20 MG INJ IM ONE ×2 (13:00→13:20)
--- NOTE | 2018-04-01 13:00 | NUR ---
PT BROUGHT BACK TO ROOM BY SOFTWARE EDUCATOR. ROOM SECURED, PT PLACED IN GOWN AND BELONGINGS TO LOCKER. SITTER AT DOORWAY.
--- NOTE | 2018-04-01 13:30 | NUR ---
TRANSFER OF CARE TO VERONICA WATERS.
--- NOTE | 2018-04-01 13:40 | NUR ---
PT C/O HEARING VOICES IN THE PAST AND IN THE LAST DAY PT REPORS VOICES ARE TELLING HIM TO " KILL YOURSELF." PT REPORTS, "I DON' T HAVE A PLAN AT ALL" AND "TRY TO IGNORE THEM." PT IN SECURED ROOM WITH SITTER. PT ALSO REPORTS THAT HE IS NOT TAKING ANY MEDICATIONS CURRENTLY AND FAR HE KNOWS HAS NOT BEEN PRESRIBED ANY RECENTLY FROM PSYCHOLOGIST.
--- NOTE | 2018-04-01 13:50 | NUR ---
PT REFUSED GEODON SHOT STATING, "I DON'T WANT A SHOT."
--- NOTE | 2018-04-01 14:09 | NUR ---
REPORT TO VERONICA WATERS.
--- NOTE | 2018-04-01 15:10 | NUR ---
BELONGINGS RETURNED O PT, PT GIVEN REFILL OF ZYPREXA, AWARE OF NEED TO F/U WITH PSYCHIATRY
== END 2018-04-01 15:11 | disposition home or self-care (01) ==
LOC: ED 13:26
DX: F20.89 Other schizophrenia (principal); F06.2 Psychotic disorder with delusions due to known physiological condition; Z72.9 Problem related to lifestyle, unspecified; I10 Essential (primary) hypertension; F32.9 Major depressive disorder, single episode, unspecified; G89.29 Other chronic pain; M19.90 Unspecified osteoarthritis, unspecified site
CPT/HCPCS: 99284

== ENCOUNTER 2018-04-02 04:06 | Emergency (ER) | payer MEDICARE, MEDICAID ==
[~2018-04-02] VITALS: Ht 177.8 cm; Wt 82.0 kg
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
--- NOTE | 2018-04-02 04:37 | NUR ---
OFFERED PT FOR THIS RN TO CALL [employer] SO HE COULD FILE A POLICE REPORT, PT DECLINED, PT INFORMED THAT HE CAN CALL NONEMERGENT POLICE LINE AT ANYTIME TO FILE A REPORT.
--- NOTE | 2018-04-02 04:58 | NUR ---
PT TO CT
[2018-04-02 05:14] VITALS: BP 130/80
--- NOTE | 2018-04-02 05:15 | NUR ---
PT RESTING CALMLY, DENIES NEEDS, CALL LIGHT WITHIN REACH. AWAITING CT RESULTS
== END 2018-04-02 05:57 | disposition home or self-care (01) ==
LOC: ED 04:25
DX: S05.12XA Contusion of eyeball and orbital tissues, left eye, initial encounter (principal); S05.11XA Contusion of eyeball and orbital tissues, right eye, initial encounter; R55 Syncope and collapse; F10.129 Alcohol abuse with intoxication, unspecified; F31.9 Bipolar disorder, unspecified; G40.909 Epilepsy, unspecified, not intractable, without status epilepticus; I10 Essential (primary) hypertension; F41.1 Generalized anxiety disorder; G43.909 Migraine, unspecified, not intractable, without status migrainosus; E11.9 Type 2 diabetes mellitus without complications; Z72.9 Problem related to lifestyle, unspecified; X93.XXXA Assault by handgun discharge, initial encounter; Y93.89 Activity, other specified; Y92.89 Other specified places as the place of occurrence of the external cause; Y99.8 Other external cause status; Y90.9 Presence of alcohol in blood, level not specified
CPT/HCPCS: 70450; 70486; 99284

== ENCOUNTER 2018-04-03 05:35 | Inpatient (IN) | payer MEDICARE, MEDICAID ==
[~2018-04-03] VITALS: Ht 177.8 cm; Wt 82.4 kg
[2018-04-03] MEDS ORDERED: POLYETHYLENE GLYCOL 17 GM PACKET PO PRN (06:00)
[2018-04-03] MEDS ORDERED: DOCUSATE 100 MG CAPSULE PO PRN (06:00)
[2018-04-03] MEDS ORDERED: PANTOPROZOLE 40MG TABLET PO SCH (06:00)
[2018-04-03 07:53] VITALS: BP 122/81
[2018-04-03 07:55] VITALS: BP 126/87
[2018-04-03] MEDS: ACAMPROSATE 333 MG TABLET.DR PO SCH ×4 (09:00→20:03)
[2018-04-03] MEDS: TOPIRAMATE 25 MG TABLET PO SCH ×2 (10:01→20:02)
[2018-04-03] MEDS: OXCARBAZEPINE 150 MG TABLET PO SCH ×2 (10:01→20:02)
[2018-04-03] MEDS: ASPIRIN 81 MG TABLET EC PO SCH (10:01)
[2018-04-03] MEDS: METOPROLOL SUCCINATE 50 MG TAB.ER.24H PO SCH (10:01)
[2018-04-03] MEDS: NICOTINE 21 MG/24 HR PATCH.TD24 TD SCH (10:01)
[2018-04-03 16:42] LABS: MICROSCOPIC AUTO
[2018-04-03 16:44] LABS: CULTURE INDICATED? NO
[2018-04-03 17:00] LABS: AMPHETAMINE SCREEN, URINE Negative (Negative); BARBITURATE SCREEN, URINE Negative (Negative); BENZODIAZEPINE SCREEN, URINE Negative (Negative); CANNABINOID SCREEN, URINE Negative (Negative); COCAINE SCREEN, URINE Negative (Negative); METHADONE SCREEN, URINE Negative (Negative); OPIATE SCREEN, URINE Negative (Negative)
[2018-04-03 19:43] VITALS: BP 114/72
[2018-04-03] MEDS: QUETIAPINE 200 MG TABLET PO SCH (20:02)
[2018-04-03] MEDS: PRAZOSIN 2 MG CAPSULE PO SCH (20:03)
[2018-04-04 07:30] VITALS: BP 104/70
[2018-04-04] MEDS: ASPIRIN 81 MG TABLET EC PO SCH (08:40)
[2018-04-04] MEDS: TOPIRAMATE 25 MG TABLET PO SCH ×2 (08:40→20:45)
[2018-04-04] MEDS: METOPROLOL SUCCINATE 50 MG TAB.ER.24H PO SCH (08:40)
[2018-04-04] MEDS: NICOTINE 21 MG/24 HR PATCH.TD24 TD SCH (08:41)
[2018-04-04] MEDS: SUMATRIPTAN 50 MG TABLET PO PRN (08:41)
[2018-04-04] MEDS: ACAMPROSATE 333 MG TABLET.DR PO SCH ×3 (08:41→20:45)
[2018-04-04] MEDS: OXCARBAZEPINE 150 MG TABLET PO SCH ×2 (08:41→20:45)
[2018-04-04 19:52] VITALS: BP 135/82
[2018-04-04] MEDS: PRAZOSIN 2 MG CAPSULE PO SCH (20:45)
[2018-04-04] MEDS: QUETIAPINE 200 MG TABLET PO SCH (20:45)
[2018-04-05] MEDS: METOPROLOL SUCCINATE 50 MG TAB.ER.24H PO SCH (06:00)
[2018-04-05] MEDS: ASPIRIN 81 MG TABLET EC PO SCH (06:00)
[2018-04-05 07:35] VITALS: BP 114/83
[2018-04-05] MEDS: ACAMPROSATE 333 MG TABLET.DR PO SCH ×4 (09:00→22:33)
[2018-04-05] MEDS: OXCARBAZEPINE 150 MG TABLET PO SCH ×2 (09:29→22:33)
[2018-04-05] MEDS: NICOTINE 21 MG/24 HR PATCH.TD24 TD SCH (09:29)
[2018-04-05] MEDS: TOPIRAMATE 25 MG TABLET PO SCH ×2 (09:29→22:33)
[2018-04-05] MEDS ORDERED: HALOPERIDOL 5 MG TABLET ONE (12:41)
[2018-04-05] MEDS: HALOPERIDOL 5 MG TABLET PO PRN (12:43)
[2018-04-05 19:58] VITALS: BP 125/87
[2018-04-05] MEDS: PRAZOSIN 2 MG CAPSULE PO SCH (22:32)
[2018-04-05] MEDS: QUETIAPINE 200 MG TABLET PO SCH (22:32)
[2018-04-06] MEDS: HALOPERIDOL 5 MG TABLET PO PRN ×2 (02:17→18:25)
[2018-04-06 05:53] VITALS: BP 110/70
[2018-04-06] MEDS: ASPIRIN 81 MG TABLET EC PO SCH (05:54)
[2018-04-06] MEDS: METOPROLOL SUCCINATE 50 MG TAB.ER.24H PO SCH (05:54)
[2018-04-06 07:47] VITALS: BP 123/78
[2018-04-06] MEDS: NICOTINE 21 MG/24 HR PATCH.TD24 TD SCH (08:46)
[2018-04-06] MEDS: OXCARBAZEPINE 150 MG TABLET PO SCH ×2 (08:46→21:00)
[2018-04-06] MEDS: TOPIRAMATE 25 MG TABLET PO SCH ×2 (08:46→20:57)
[2018-04-06] MEDS: ACAMPROSATE 333 MG TABLET.DR PO SCH ×2 (08:58→16:00)
[2018-04-06 19:50] VITALS: BP 137/94
[2018-04-06] MEDS: PRAZOSIN 2 MG CAPSULE PO SCH (20:56)
[2018-04-06] MEDS: QUETIAPINE 100MG TABLET PO SCH (20:57)
[2018-04-06] MEDS: NAPROXEN 250 MG TABLET PO SCH (20:57)
[2018-04-07] MEDS: ASPIRIN 81 MG TABLET EC PO SCH (06:00)
[2018-04-07] MEDS: METOPROLOL SUCCINATE 50 MG TAB.ER.24H PO SCH (06:16)
[2018-04-07 07:17] VITALS: BP 112/76
[2018-04-07] MEDS: TOPIRAMATE 25 MG TABLET PO SCH ×2 (08:29→20:37)
[2018-04-07] MEDS: NICOTINE 21 MG/24 HR PATCH.TD24 TD SCH (08:29)
[2018-04-07] MEDS: NAPROXEN 250 MG TABLET PO SCH ×2 (08:30→20:37)
[2018-04-07] MEDS: OXCARBAZEPINE 150 MG TABLET PO SCH ×2 (08:30→20:37)
[2018-04-07] MEDS: LORazepam 0.5MG TABLET PO PRN ×2 (16:50→21:21)
[2018-04-07] MEDS: PRAZOSIN 2 MG CAPSULE PO SCH (20:37)
[2018-04-07] MEDS: QUETIAPINE 100MG TABLET PO SCH (20:39)
[2018-04-07 21:14] VITALS: BP 134/84
[2018-04-08] MEDS: METOPROLOL SUCCINATE 50 MG TAB.ER.24H PO SCH (05:15)
[2018-04-08] MEDS: ASPIRIN 81 MG TABLET EC PO SCH (05:16)
[2018-04-08 07:50] VITALS: BP 112/72
[2018-04-08] MEDS: OXCARBAZEPINE 150 MG TABLET PO SCH ×2 (08:48→20:38)
[2018-04-08] MEDS: TOPIRAMATE 25 MG TABLET PO SCH ×2 (08:48→20:38)
[2018-04-08] MEDS: NAPROXEN 250 MG TABLET PO SCH ×2 (08:48→20:38)
[2018-04-08] MEDS: NICOTINE 21 MG/24 HR PATCH.TD24 TD SCH (08:49)
[2018-04-08] MEDS: OLANZAPINE 10 MG TABLET PO SCH (17:28)
[2018-04-08 19:46] VITALS: BP 139/82
[2018-04-08] MEDS: PRAZOSIN 2 MG CAPSULE PO SCH (20:38)
[2018-04-09] MEDS: LORazepam 0.5MG TABLET PO PRN ×2 (01:04→09:46)
[2018-04-09] MEDS: METOPROLOL SUCCINATE 50 MG TAB.ER.24H PO SCH (05:23)
[2018-04-09] MEDS: ASPIRIN 81 MG TABLET EC PO SCH (05:23)
[2018-04-09 07:54] VITALS: BP 141/80
[2018-04-09] MEDS: TOPIRAMATE 25 MG TABLET PO SCH ×2 (08:32→20:26)
[2018-04-09] MEDS: NICOTINE 21 MG/24 HR PATCH.TD24 TD SCH (08:32)
[2018-04-09] MEDS: NAPROXEN 250 MG TABLET PO SCH ×2 (08:33→20:25)
[2018-04-09] MEDS: OLANZAPINE 10 MG TABLET PO SCH (08:33)
[2018-04-09] MEDS: OXCARBAZEPINE 150 MG TABLET PO SCH ×2 (09:00→20:26)
[2018-04-09] MEDS ORDERED: DIPHENHYDRAMINE 50 MG/ML, 1ML IM ONE (10:06)
[2018-04-09] MEDS ORDERED: LORazepam 2 MG/ML, 1ML IM ONE ×2 (10:06→10:30)
[2018-04-09] MEDS ORDERED: HALOPERIDOL 5 MG/ML IM ONE (10:06)
[2018-04-09] MEDS ORDERED: LORazepam 2 MG/ML, 1ML ONE (10:12)
[2018-04-09] MEDS ORDERED: HALOPERIDOL 5 MG/ML ONE (10:12)
[2018-04-09] MEDS ORDERED: LORazepam 2 MG/ML, 1ML IM STA (10:20)
[2018-04-09] MEDS ORDERED: ACETAMINOPHEN 325 MG TABLET ONE (15:28)
[2018-04-09] MEDS: ACETAMINOPHEN 325 MG TABLET PO PRN (15:33)
[2018-04-09 19:38] VITALS: BP 122/80
[2018-04-09] MEDS: PRAZOSIN 2 MG CAPSULE PO SCH (20:25)
[2018-04-10] MEDS: METOPROLOL SUCCINATE 50 MG TAB.ER.24H PO SCH (05:43)
[2018-04-10] MEDS: ASPIRIN 81 MG TABLET EC PO SCH (05:46)
[2018-04-10] MEDS: ACETAMINOPHEN 325 MG TABLET PO PRN ×3 (05:59→21:06)
[2018-04-10 07:58] VITALS: BP 127/81
[2018-04-10] MEDS: OLANZAPINE 10 MG TABLET PO SCH ×2 (08:28→21:05)
[2018-04-10] MEDS: TOPIRAMATE 25 MG TABLET PO SCH ×2 (08:28→21:05)
[2018-04-10] MEDS: OXCARBAZEPINE 150 MG TABLET PO SCH ×2 (08:28→21:07)
[2018-04-10] MEDS: NAPROXEN 250 MG TABLET PO SCH ×2 (08:29→21:05)
[2018-04-10] MEDS: NICOTINE 21 MG/24 HR PATCH.TD24 TD SCH (08:29)
[2018-04-10] MEDS: LORazepam 0.5MG TABLET PO PRN ×2 (08:29→12:45)
[2018-04-10] MEDS: QUETIAPINE 100MG TABLET PO PRN ×2 (12:45→22:00)
[2018-04-10] MEDS: SUMATRIPTAN 50 MG TABLET PO PRN (14:58)
[2018-04-10 18:03] LABS: MICROSCOPIC NOT IND
[2018-04-10 19:50] VITALS: BP 126/87
[2018-04-10] MEDS: PRAZOSIN 2 MG CAPSULE PO SCH (21:00)
[2018-04-11 05:59] VITALS: BP 122/81
[2018-04-11] MEDS: METOPROLOL SUCCINATE 50 MG TAB.ER.24H PO SCH (06:01)
[2018-04-11] MEDS: ASPIRIN 81 MG TABLET EC PO SCH (06:01)
[2018-04-11 07:06] VITALS: BP 115/80
[2018-04-11] MEDS: OXCARBAZEPINE 150 MG TABLET PO SCH ×2 (08:20→20:47)
[2018-04-11] MEDS: TOPIRAMATE 25 MG TABLET PO SCH ×2 (08:20→20:47)
[2018-04-11] MEDS: NAPROXEN 250 MG TABLET PO SCH ×2 (08:20→20:50)
[2018-04-11] MEDS: LORazepam 0.5MG TABLET PO PRN ×3 (08:20→20:47)
[2018-04-11] MEDS: OLANZAPINE 10 MG TABLET PO SCH ×2 (08:21→20:48)
[2018-04-11] MEDS: NICOTINE 21 MG/24 HR PATCH.TD24 TD SCH (08:22)
[2018-04-11] MEDS: SUMATRIPTAN 50 MG TABLET PO PRN (08:23)
[2018-04-11] MEDS: QUETIAPINE 100MG TABLET PO PRN ×2 (12:57→22:00)
[2018-04-11 19:28] VITALS: BP 101/56
[2018-04-11] MEDS: ACETAMINOPHEN 325 MG TABLET PO PRN (20:47)
[2018-04-11] MEDS: PRAZOSIN 2 MG CAPSULE PO SCH (20:47)
[2018-04-12] MEDS: ASPIRIN 81 MG TABLET EC PO SCH (05:13)
[2018-04-12] MEDS: ACETAMINOPHEN 325 MG TABLET PO PRN (05:13)
[2018-04-12] MEDS: METOPROLOL SUCCINATE 50 MG TAB.ER.24H PO SCH (05:13)
[2018-04-12 07:39] VITALS: BP 117/81
[2018-04-12] MEDS: TOPIRAMATE 25 MG TABLET PO SCH ×2 (08:19→21:00)
[2018-04-12] MEDS: OLANZAPINE 10 MG TABLET PO SCH ×2 (08:19→21:00)
[2018-04-12] MEDS: OXCARBAZEPINE 150 MG TABLET PO SCH ×2 (08:19→21:00)
[2018-04-12] MEDS: NAPROXEN 250 MG TABLET PO SCH ×2 (08:19→21:00)
[2018-04-12] MEDS: NICOTINE 21 MG/24 HR PATCH.TD24 TD SCH (08:23)
[2018-04-12] MEDS: SUMATRIPTAN 50 MG TABLET PO PRN (10:02)
[2018-04-12 19:51] VITALS: BP 138/95
[2018-04-12] MEDS: PRAZOSIN 2 MG CAPSULE PO SCH (21:00)
[2018-04-13] MEDS: ASPIRIN 81 MG TABLET EC PO SCH (06:00)
[2018-04-13] MEDS: METOPROLOL SUCCINATE 50 MG TAB.ER.24H PO SCH (06:00)
[2018-04-13 07:46] VITALS: BP 130/99
[2018-04-13] MEDS: NAPROXEN 250 MG TABLET PO SCH ×2 (08:42→21:00)
[2018-04-13] MEDS: OLANZAPINE 10 MG TABLET PO SCH (08:42)
[2018-04-13] MEDS: OXCARBAZEPINE 150 MG TABLET PO SCH ×2 (08:42→20:55)
[2018-04-13] MEDS: NICOTINE 21 MG/24 HR PATCH.TD24 TD SCH (08:42)
[2018-04-13] MEDS: TOPIRAMATE 25 MG TABLET PO SCH ×2 (08:42→20:58)
[2018-04-13 19:46] VITALS: BP 126/86
[2018-04-13] MEDS: ZIPRASIDONE 40MG CAPSULE PO SCH (20:57)
[2018-04-13] MEDS: PRAZOSIN 2 MG CAPSULE PO SCH (20:58)
[2018-04-14] MEDS: METOPROLOL SUCCINATE 50 MG TAB.ER.24H PO SCH (05:44)
[2018-04-14] MEDS: ASPIRIN 81 MG TABLET EC PO SCH (05:45)
[2018-04-14 07:44] VITALS: BP 117/74
[2018-04-14] MEDS: NAPROXEN 250 MG TABLET PO SCH ×2 (08:46→21:00)
[2018-04-14] MEDS: ZIPRASIDONE 40MG CAPSULE PO SCH ×3 (08:47→21:00)
[2018-04-14] MEDS: OXCARBAZEPINE 150 MG TABLET PO SCH ×2 (08:47→21:09)
[2018-04-14] MEDS: TOPIRAMATE 25 MG TABLET PO SCH ×2 (08:47→21:00)
[2018-04-14] MEDS: NICOTINE 21 MG/24 HR PATCH.TD24 TD SCH (10:23)
[2018-04-14 19:35] VITALS: BP 147/92
[2018-04-14] MEDS: PRAZOSIN 2 MG CAPSULE PO SCH (21:08)
[2018-04-14] MEDS: LORazepam 0.5MG TABLET PO PRN (22:16)
[2018-04-15] MEDS: METOPROLOL SUCCINATE 50 MG TAB.ER.24H PO SCH (05:38)
[2018-04-15] MEDS: ASPIRIN 81 MG TABLET EC PO SCH (05:38)
[2018-04-15 07:59] VITALS: BP 112/76
[2018-04-15] MEDS: NICOTINE 21 MG/24 HR PATCH.TD24 TD SCH (08:00)
[2018-04-15] MEDS: NAPROXEN 250 MG TABLET PO SCH ×2 (08:00→20:55)
[2018-04-15] MEDS: TOPIRAMATE 25 MG TABLET PO SCH (08:00)
[2018-04-15] MEDS: ZIPRASIDONE 40MG CAPSULE PO SCH ×3 (08:00→20:51)
[2018-04-15] MEDS: OXCARBAZEPINE 150 MG TABLET PO SCH ×2 (08:00→21:00)
[2018-04-15 19:28] VITALS: BP 115/77
[2018-04-15] MEDS ORDERED: TOPIRAMATE 25 MG TABLET ONE (20:49)
[2018-04-15] MEDS: PRAZOSIN 2 MG CAPSULE PO SCH (20:55)
[2018-04-15] MEDS: TOPIRAMATE 100 MG TABLET PO SCH (21:00)
[2018-04-16] MEDS: METOPROLOL SUCCINATE 50 MG TAB.ER.24H PO SCH (05:33)
[2018-04-16] MEDS: ASPIRIN 81 MG TABLET EC PO SCH (05:33)
[2018-04-16 07:32] VITALS: BP 104/66
[2018-04-16] MEDS: ZIPRASIDONE 40MG CAPSULE PO SCH ×3 (08:57→20:17)
[2018-04-16] MEDS: OXCARBAZEPINE 150 MG TABLET PO SCH ×2 (08:57→20:13)
[2018-04-16] MEDS: TOPIRAMATE 100 MG TABLET PO SCH ×2 (08:57→20:13)
[2018-04-16] MEDS: NAPROXEN 250 MG TABLET PO SCH ×2 (08:57→20:14)
[2018-04-16] MEDS: NICOTINE 21 MG/24 HR PATCH.TD24 TD SCH (08:58)
[2018-04-16] MEDS: LORazepam 0.5MG TABLET PO PRN (11:28)
[2018-04-16 19:21] VITALS: BP 110/69
[2018-04-16] MEDS: PRAZOSIN 2 MG CAPSULE PO SCH (20:13)
[2018-04-17] MEDS: METOPROLOL SUCCINATE 50 MG TAB.ER.24H PO SCH (05:28)
[2018-04-17] MEDS: ASPIRIN 81 MG TABLET EC PO SCH (05:28)
[2018-04-17 07:13] VITALS: BP 111/71
[2018-04-17] MEDS: LORazepam 0.5MG TABLET PO PRN (07:27)
[2018-04-17] MEDS: SUMATRIPTAN 50 MG TABLET PO PRN (07:27)
[2018-04-17] MEDS: OXCARBAZEPINE 150 MG TABLET PO SCH ×2 (08:45→20:59)
[2018-04-17] MEDS: NAPROXEN 250 MG TABLET PO SCH ×2 (08:45→20:59)
[2018-04-17] MEDS: NICOTINE 21 MG/24 HR PATCH.TD24 TD SCH (08:45)
[2018-04-17] MEDS: TOPIRAMATE 100 MG TABLET PO SCH ×2 (08:45→20:59)
[2018-04-17] MEDS: ZIPRASIDONE 40MG CAPSULE PO SCH (08:51)
[2018-04-17] MEDS: ACETAMINOPHEN 325 MG TABLET PO PRN (16:15)
[2018-04-17 19:48] VITALS: BP 117/74
[2018-04-17] MEDS: MIRTAZAPINE 15 MG TABLET PO SCH (20:59)
[2018-04-17] MEDS: PRAZOSIN 2 MG CAPSULE PO SCH (20:59)
[2018-04-17] MEDS: OLANZAPINE 5 MG TABLET PO SCH (21:00)
[2018-04-18] MEDS: ASPIRIN 81 MG TABLET EC PO SCH (05:41)
[2018-04-18] MEDS: METOPROLOL SUCCINATE 50 MG TAB.ER.24H PO SCH (05:42)
[2018-04-18 07:14] VITALS: BP 104/67
[2018-04-18] MEDS: ACETAMINOPHEN 325 MG TABLET PO PRN ×2 (07:33→16:00)
[2018-04-18] MEDS: NICOTINE 21 MG/24 HR PATCH.TD24 TD SCH (08:36)
[2018-04-18] MEDS: NAPROXEN 250 MG TABLET PO SCH ×2 (08:36→20:43)
[2018-04-18] MEDS: TOPIRAMATE 100 MG TABLET PO SCH ×2 (08:36→20:43)
[2018-04-18] MEDS: OXCARBAZEPINE 150 MG TABLET PO SCH ×2 (08:37→20:43)
[2018-04-18] MEDS: OLANZAPINE 5 MG TABLET PO SCH ×2 (08:37→20:43)
[2018-04-18] MEDS: LORazepam 0.5MG TABLET PO PRN (16:00)
[2018-04-18 19:32] VITALS: BP 126/78
[2018-04-18] MEDS: PRAZOSIN 2 MG CAPSULE PO SCH (20:43)
[2018-04-18] MEDS: MIRTAZAPINE 15 MG TABLET PO SCH (20:44)
[2018-04-19] MEDS: ACETAMINOPHEN 325 MG TABLET PO PRN (02:50)
[2018-04-19] MEDS: QUETIAPINE 100MG TABLET PO PRN (02:50)
[2018-04-19] MEDS: METOPROLOL SUCCINATE 50 MG TAB.ER.24H PO SCH (06:00)
[2018-04-19] MEDS: ASPIRIN 81 MG TABLET EC PO SCH (06:00)
[2018-04-19 07:53] VITALS: BP 115/77
[2018-04-19] MEDS: OLANZAPINE 5 MG TABLET PO SCH ×2 (08:18→20:48)
[2018-04-19] MEDS: NICOTINE 21 MG/24 HR PATCH.TD24 TD SCH ×2 (08:18→08:26)
[2018-04-19] MEDS: TOPIRAMATE 100 MG TABLET PO SCH ×2 (08:19→20:49)
[2018-04-19] MEDS: OXCARBAZEPINE 150 MG TABLET PO SCH ×3 (08:19→20:49)
[2018-04-19] MEDS: NAPROXEN 250 MG TABLET PO SCH ×2 (08:19→20:47)
[2018-04-19] MEDS: SUMATRIPTAN 50 MG TABLET PO PRN (13:26)
[2018-04-19] MEDS: LORazepam 0.5MG TABLET PO PRN (15:47)
[2018-04-19 19:39] VITALS: BP 123/81
[2018-04-19] MEDS: MIRTAZAPINE 15 MG TABLET PO SCH (20:47)
[2018-04-19] MEDS: PRAZOSIN 2 MG CAPSULE PO SCH (20:47)
[2018-04-20] MEDS: ASPIRIN 81 MG TABLET EC PO SCH (05:40)
[2018-04-20] MEDS: METOPROLOL SUCCINATE 50 MG TAB.ER.24H PO SCH (05:40)
[2018-04-20 07:16] VITALS: BP 110/76
[2018-04-20] MEDS: NICOTINE 21 MG/24 HR PATCH.TD24 TD SCH (09:22)
[2018-04-20] MEDS: OLANZAPINE 5 MG TABLET PO SCH ×2 (09:23→20:06)
[2018-04-20] MEDS: OXCARBAZEPINE 150 MG TABLET PO SCH ×2 (09:23→20:06)
[2018-04-20] MEDS: NAPROXEN 250 MG TABLET PO SCH ×2 (09:23→20:06)
[2018-04-20] MEDS: TOPIRAMATE 100 MG TABLET PO SCH ×2 (09:23→20:06)
[2018-04-20 19:42] VITALS: BP 137/85
[2018-04-20] MEDS: PRAZOSIN 2 MG CAPSULE PO SCH (20:06)
[2018-04-20] MEDS: MIRTAZAPINE 15 MG TABLET PO SCH (20:06)
[2018-04-20] MEDS: LORazepam 0.5MG TABLET PO PRN (23:07)
[2018-04-21] MEDS: ASPIRIN 81 MG TABLET EC PO SCH (05:47)
[2018-04-21 07:25] VITALS: BP 109/73
[2018-04-21] MEDS: METOPROLOL SUCCINATE 50 MG TAB.ER.24H PO SCH (09:00)
[2018-04-21] MEDS: NICOTINE 21 MG/24 HR PATCH.TD24 TD SCH (10:11)
[2018-04-21] MEDS: TOPIRAMATE 100 MG TABLET PO SCH ×2 (10:12→20:20)
[2018-04-21] MEDS: OLANZAPINE 5 MG TABLET PO SCH ×2 (10:12→20:20)
[2018-04-21] MEDS: NAPROXEN 250 MG TABLET PO SCH ×2 (10:13→20:20)
[2018-04-21] MEDS: OXCARBAZEPINE 150 MG TABLET PO SCH ×2 (10:14→20:20)
[2018-04-21] MEDS: LORazepam 0.5MG TABLET PO PRN (12:38)
[2018-04-21] MEDS: QUETIAPINE 100MG TABLET PO PRN (15:28)
[2018-04-21] MEDS: MIRTAZAPINE 15 MG TABLET PO SCH (20:20)
[2018-04-21] MEDS: PRAZOSIN 2 MG CAPSULE PO SCH (20:20)
[2018-04-22 03:15] VITALS: BP 130/79
[2018-04-22] MEDS: ACETAMINOPHEN 325 MG TABLET PO PRN ×2 (04:23→20:41)
[2018-04-22] MEDS: ASPIRIN 81 MG TABLET EC PO SCH (05:06)
[2018-04-22 07:25] VITALS: BP 117/77
[2018-04-22] MEDS: OLANZAPINE 5 MG TABLET PO SCH ×2 (09:02→20:40)
[2018-04-22] MEDS: NICOTINE 21 MG/24 HR PATCH.TD24 TD SCH ×2 (09:02→09:15)
[2018-04-22] MEDS: METOPROLOL SUCCINATE 50 MG TAB.ER.24H PO SCH (09:02)
[2018-04-22] MEDS: TOPIRAMATE 100 MG TABLET PO SCH ×2 (09:02→20:40)
[2018-04-22] MEDS: NAPROXEN 250 MG TABLET PO SCH ×2 (09:02→20:39)
[2018-04-22] MEDS: OXCARBAZEPINE 150 MG TABLET PO SCH ×2 (09:03→20:40)
[2018-04-22] MEDS: LORazepam 0.5MG TABLET PO PRN (14:12)
[2018-04-22] MEDS: QUETIAPINE 100MG TABLET PO PRN (14:12)
[2018-04-22 19:30] VITALS: BP 125/73
[2018-04-22] MEDS ORDERED: OLANZAPINE 10 MG TABLET ONE (20:37)
[2018-04-22] MEDS: PRAZOSIN 2 MG CAPSULE PO SCH (20:39)
[2018-04-22] MEDS: MIRTAZAPINE 15 MG TABLET PO SCH (20:39)
[2018-04-23] MEDS: QUETIAPINE 100MG TABLET PO PRN ×2 (01:25→18:21)
[2018-04-23] MEDS: LORazepam 0.5MG TABLET PO PRN ×2 (01:25→14:52)
[2018-04-23] MEDS: ASPIRIN 81 MG TABLET EC PO SCH (05:25)
[2018-04-23 07:39] VITALS: BP 128/82
[2018-04-23] MEDS: METOPROLOL SUCCINATE 50 MG TAB.ER.24H PO SCH (08:13)
[2018-04-23] MEDS: OXCARBAZEPINE 150 MG TABLET PO SCH ×2 (08:13→20:21)
[2018-04-23] MEDS: NAPROXEN 250 MG TABLET PO SCH ×2 (08:13→20:20)
[2018-04-23] MEDS: TOPIRAMATE 100 MG TABLET PO SCH ×2 (08:13→20:21)
[2018-04-23] MEDS: NICOTINE 21 MG/24 HR PATCH.TD24 TD SCH (08:13)
[2018-04-23] MEDS: OLANZAPINE 5 MG TABLET PO SCH ×2 (08:13→20:20)
[2018-04-23] MEDS: ACETAMINOPHEN 325 MG TABLET PO PRN (10:42)
[2018-04-23] MEDS: SUMATRIPTAN 50 MG TABLET PO PRN (14:52)
[2018-04-23 19:39] VITALS: BP 111/69
[2018-04-23] MEDS: MIRTAZAPINE 15 MG TABLET PO SCH (20:20)
[2018-04-23] MEDS: PRAZOSIN 2 MG CAPSULE PO SCH (20:20)
[2018-04-24] MEDS: LORazepam 0.5MG TABLET PO PRN ×2 (01:36→10:40)
[2018-04-24] MEDS: QUETIAPINE 100MG TABLET PO PRN ×2 (01:36→10:40)
[2018-04-24] MEDS: ASPIRIN 81 MG TABLET EC PO SCH (06:12)
[2018-04-24] MEDS: ACETAMINOPHEN 325 MG TABLET PO PRN ×2 (06:24→16:47)
[2018-04-24 07:27] VITALS: BP 120/83
[2018-04-24] MEDS: METOPROLOL SUCCINATE 50 MG TAB.ER.24H PO SCH (08:25)
[2018-04-24] MEDS: TOPIRAMATE 100 MG TABLET PO SCH ×2 (08:25→20:22)
[2018-04-24] MEDS: NAPROXEN 250 MG TABLET PO SCH ×2 (08:25→20:23)
[2018-04-24] MEDS: OLANZAPINE 5 MG TABLET PO SCH ×2 (08:26→20:22)
[2018-04-24] MEDS: OXCARBAZEPINE 150 MG TABLET PO SCH ×2 (08:30→20:22)
[2018-04-24] MEDS: NICOTINE 21 MG/24 HR PATCH.TD24 TD SCH (08:33)
[2018-04-24 19:33] VITALS: BP 119/81
[2018-04-24] MEDS: MIRTAZAPINE 15 MG TABLET PO SCH (20:22)
[2018-04-24] MEDS: PRAZOSIN 2 MG CAPSULE PO SCH (20:22)
[2018-04-25] MEDS: ACETAMINOPHEN 325 MG TABLET PO PRN ×2 (01:13→13:37)
[2018-04-25] MEDS: QUETIAPINE 100MG TABLET PO PRN (02:26)
[2018-04-25] MEDS: LORazepam 0.5MG TABLET PO PRN ×2 (02:26→19:44)
[2018-04-25] MEDS: ASPIRIN 81 MG TABLET EC PO SCH (04:55)
[2018-04-25 07:45] VITALS: BP 122/87
[2018-04-25] MEDS: TOPIRAMATE 100 MG TABLET PO SCH ×2 (09:00→19:44)
[2018-04-25] MEDS: OLANZAPINE 5 MG TABLET PO SCH (09:32)
[2018-04-25] MEDS: METOPROLOL SUCCINATE 50 MG TAB.ER.24H PO SCH (09:32)
[2018-04-25] MEDS: NICOTINE 21 MG/24 HR PATCH.TD24 TD SCH (09:33)
[2018-04-25] MEDS: NAPROXEN 250 MG TABLET PO SCH ×2 (09:33→19:45)
[2018-04-25] MEDS: OXCARBAZEPINE 150 MG TABLET PO SCH ×2 (09:38→19:44)
[2018-04-25] MEDS ORDERED: PALIPERIDONE PALMITATE 234 MG/1.5 ML IM ONE (10:30)
[2018-04-25] MEDS ORDERED: PALIPERIDONE PALMITATE 156 MG/ML IM ONE (11:00)
[2018-04-25] MEDS: SUMATRIPTAN 50 MG TABLET PO PRN (16:37)
[2018-04-25] MEDS: MIRTAZAPINE 15 MG TABLET PO SCH (19:43)
[2018-04-25] MEDS: OLANZAPINE 10 MG TABLET PO SCH (19:44)
[2018-04-25] MEDS: PRAZOSIN 2 MG CAPSULE PO SCH (19:44)
[2018-04-25 19:54] VITALS: BP 153/94
[2018-04-26] MEDS: ASPIRIN 81 MG TABLET EC PO SCH (05:11)
[2018-04-26] MEDS: LORazepam 0.5MG TABLET PO PRN ×2 (05:11→22:04)
[2018-04-26] MEDS: ACETAMINOPHEN 325 MG TABLET PO PRN ×2 (07:11→18:14)
[2018-04-26 07:46] VITALS: BP 111/76
[2018-04-26] MEDS: METOPROLOL SUCCINATE 50 MG TAB.ER.24H PO SCH (08:56)
[2018-04-26] MEDS: OLANZAPINE 10 MG TABLET PO SCH ×2 (08:56→20:15)
[2018-04-26] MEDS: NICOTINE 21 MG/24 HR PATCH.TD24 TD SCH (08:56)
[2018-04-26] MEDS: NAPROXEN 250 MG TABLET PO SCH ×2 (08:56→20:15)
[2018-04-26] MEDS: OXCARBAZEPINE 150 MG TABLET PO SCH ×2 (08:57→20:15)
[2018-04-26] MEDS: TOPIRAMATE 100 MG TABLET PO SCH ×2 (09:00→20:15)
[2018-04-26] MEDS: SUMATRIPTAN 50 MG TABLET PO PRN (15:32)
[2018-04-26 19:37] VITALS: BP 132/85
[2018-04-26] MEDS: MIRTAZAPINE 15 MG TABLET PO SCH (20:15)
[2018-04-26] MEDS: PRAZOSIN 2 MG CAPSULE PO SCH ×2 (20:15→20:20)
[2018-04-26] MEDS: QUETIAPINE 100MG TABLET PO PRN (22:05)
[2018-04-27] MEDS: LORazepam 0.5MG TABLET PO PRN (03:57)
[2018-04-27] MEDS: ACETAMINOPHEN 325 MG TABLET PO PRN (03:57)
[2018-04-27] MEDS: ASPIRIN 81 MG TABLET EC PO SCH (05:01)
[2018-04-27] MEDS: QUETIAPINE 100MG TABLET PO PRN (05:01)
[2018-04-27 07:30] VITALS: BP 119/80
[2018-04-27] MEDS: OXCARBAZEPINE 150 MG TABLET PO SCH (08:09)
[2018-04-27] MEDS: NAPROXEN 250 MG TABLET PO SCH (08:09)
[2018-04-27] MEDS: METOPROLOL SUCCINATE 50 MG TAB.ER.24H PO SCH (08:09)
[2018-04-27] MEDS: TOPIRAMATE 100 MG TABLET PO SCH (08:09)
[2018-04-27] MEDS: OLANZAPINE 10 MG TABLET PO SCH (08:09)
[2018-04-27] MEDS: NICOTINE 21 MG/24 HR PATCH.TD24 TD SCH (10:11)
[2018-04-27] MEDS ORDERED: OXCA300T3 PO (11:18)
[2018-04-27] MEDS ORDERED: ASPI81TA45 PO (11:21)
[2018-04-27] MEDS ORDERED: TOPI100T24 PO (11:26)
[2018-04-27] MEDS ORDERED: OLAN10TA3 PO (11:26)
[2018-04-27] MEDS ORDERED: METO-93 PO (11:26)
[2018-04-27] MEDS ORDERED: NAPR-858 PO (11:26)
[2018-04-27] MEDS ORDERED: PRAZ2CAP2 PO (11:26)
[2018-04-27] MEDS ORDERED: MIRT15TA3 PO (11:26)
== END 2018-04-27 13:10 | disposition home or self-care (01) | DRG 885 ==
LOC: 3E 05:41
PROVIDERS: ADMIT Psychiatry & Neurology Psychosomatic Medicine; ATTEND Psychiatry & Neurology Psychosomatic Medicine
DX: F20.0 Paranoid schizophrenia (principal); F15.20 Other stimulant dependence, uncomplicated; B19.20 Unspecified viral hepatitis C without hepatic coma; F12.20 Cannabis dependence, uncomplicated; G89.29 Other chronic pain; I10 Essential (primary) hypertension; F32.9 Major depressive disorder, single episode, unspecified; F10.10 Alcohol abuse, uncomplicated; F17.210 Nicotine dependence, cigarettes, uncomplicated; J45.909 Unspecified asthma, uncomplicated; Z79.82 Long term (current) use of aspirin; Z91.19 Patient's noncompliance with other medical treatment and regimen
CPT/HCPCS: 80307; 81001; 81003; 90656; 93005; J1200; J1630; J2060; J2426

== ENCOUNTER 2018-05-05 10:00 | Emergency (ER) | payer MEDICAID, MEDICARE ==
[~2018-05-05] VITALS: Ht 175.3 cm; Wt 81.1 kg
[~2018-05-05 10:00] MED LIST changes: +ASPI81TA45 PO; +MIRT15TA3 PO; +NAPR-858 PO; +TOPI100T24 PO
[2018-05-05 10:09] VITALS: BP 145/75
--- NOTE | 2018-05-05 10:33 | NUR ---
PT TO ROOM AT THIS TIME
[2018-05-05] MEDS ORDERED: LORazepam 1MG TABLET ONE (11:15)
--- NOTE | 2018-05-05 11:56 | NUR ---
PT INFORMED TO FOLLOW UP WITH OUTPATIENT [facility]. LEO MARINELLI SPOKE WITH PT.
--- NOTE | 2018-05-05 11:56 | NUR ---
PT MEDICATED PER EMAR. Patient/Caregiver given discharge instructions and they have confirmed that they understand the instructions. Patient ambulatory with steady gait.
[2018-05-05] MEDS ORDERED: LORazepam 1MG TABLET PO ONE (12:00)
[2018-05-06] MEDS ORDERED: QUET200T PO (10:13)
== END 2018-05-05 12:28 | disposition home or self-care (01) ==
LOC: ED 12:17
DX: R51 Headache (principal); I10 Essential (primary) hypertension; F17.200 Nicotine dependence, unspecified, uncomplicated; F31.9 Bipolar disorder, unspecified; E11.9 Type 2 diabetes mellitus without complications; F20.9 Schizophrenia, unspecified; F29 Unspecified psychosis not due to a substance or known physiological condition; G40.909 Epilepsy, unspecified, not intractable, without status epilepticus
CPT/HCPCS: 99282

== ENCOUNTER 2018-05-06 09:08 | Emergency (ER) | payer MEDICARE ==
[~2018-05-06] VITALS: Ht 177.8 cm; Wt 80.6 kg
--- NOTE | 2018-05-06 09:41 | NUR ---
DENTIST ATTENDANT: PT TO ROOM FROM DM[facility]OL
[2018-05-06 09:53] LABS: BASOPHILS # (AUTO) 0.04 x10^3/uL (0-0.1); BASOPHILS % (AUTO) 1 % (0-1); EOSINOPHILS # (AUTO) 0.05 x10^3/uL (0-0.4); EOSINOPHILS % (AUTO) 1 % (1-7); LYMPHOCYTES # (AUTO) 1.61 x10^3/uL (1-3.4); LYMPHOCYTES % (AUTO) 18 % (22-44); MD NO; MEAN CORPUSCULAR HEMOGLOBIN 30.9 pg (27.5-34.5); MEAN CORPUSCULAR VOLUME 90.9 fL (81-97); MEAN PLATELET VOLUME 7.2 fL (7.4-10.4); MONOCYTES # (AUTO) 0.35 x10^3/uL (0.2-0.8); MONOCYTES % (AUTO) 4 % (2-9); NEUTROPHILS % (AUTO) 78 % (42-75); PLATELET COUNT 271 x10^3/uL (130-400); RED BLOOD COUNT 5.46 x10^6/uL (4.38-5.82); RED CELL DISTRIBUTION WIDTH 13.6 % (9.4-14.8)
[2018-05-06] MEDS ORDERED: PROMETHAZINE 25 MG/ML, 1ML IM ONE (10:00)
[2018-05-06] MEDS ORDERED: IBUPROFEN 600 MG TABLET PO ONE (10:00)
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
[2018-05-06 10:06] LABS: ALBUMIN 4.8 g/dL (3.4-5.0); ANION GAP 5 mmol/L (5-15); CALCIUM 8.9 mg/dL (8.5-10.1); CHLORIDE 108 mmol/L (98-107)
[2018-05-06] MEDS ORDERED: QUET200T PO (10:13)
[2018-05-06 10:15] VITALS: BP 118/89
[2018-05-06] MEDS ORDERED: IBUPROFEN 600 MG TABLET ONE (10:20)
[2018-05-06] MEDS ORDERED: PROMETHAZINE 25 MG/ML, 1ML ONE (10:20)
== END 2018-05-06 11:48 ==
LOC: ED 10:20
DX: G43.909 Migraine, unspecified, not intractable, without status migrainosus (principal); I10 Essential (primary) hypertension; G40.909 Epilepsy, unspecified, not intractable, without status epilepticus
CPT/HCPCS: 36415; 80048; 82040; 85025; 93005; 96372; 99284; J2550

== ENCOUNTER 2018-05-13 21:05 | Inpatient (IN) | payer MEDICARE ==
[~2018-05-13] VITALS: Ht 177.8 cm; Wt 81.2 kg
[~2018-05-13 21:05] MED LIST changes: +QUET200T PO
[2018-05-13] MEDS ORDERED: POLYETHYLENE GLYCOL 17 GM PACKET PO PRN (21:30)
[2018-05-13] MEDS ORDERED: ONDANSETRON ODT 4 MG PO PRN (21:30)
[2018-05-13] MEDS ORDERED: PLEASE ENTER HEIGHT AND WEIGHT MC SCH (21:34)
[2018-05-13] MEDS ORDERED: ACETAMINOPHEN 325 MG TABLET PO PRN (22:00)
[2018-05-13] MEDS ORDERED: NAPROXEN 250 MG TABLET PO PRN (22:00)
[2018-05-13 22:17] VITALS: BP 108/73
[2018-05-13 22:18] VITALS: BP_SYST 114; BP_SYST 118; BP_DIAS 70; BP_DIAS 74
[2018-05-13] MEDS ORDERED: hydrALAzine 20 MG/ML, 1ML IVPush PRN (23:00)
[2018-05-13 23:07] VITALS: BP 114/70
[2018-05-13] MEDS: NICOTINE 21 MG/24 HR PATCH.TD24 TD SCH (23:33)
[2018-05-13 23:34] VITALS: BP 114/70
[2018-05-14] MEDS: LORazepam 0.5MG TABLET PO PRN ×2 (00:14→22:24)
[2018-05-14] MEDS: ASPIRIN 81 MG TABLET EC PO SCH (05:55)
[2018-05-14] MEDS ORDERED: METOPROLOL SUCCINATE 50 MG TAB.ER.24H PO SCH (06:00)
[2018-05-14] MEDS ORDERED: ENOXAPARIN 40 MG/0.4 ML SQ SCH (06:00)
[2018-05-14 06:13] LABS: FREE T4 (FREE THYROXINE) 0.98 ng/dL (0.76-1.46); THYROID STIMULATING HORMONE 1.07 mIU/L (0.358-3.740)
[2018-05-14] MEDS: ACETAMINOPHEN 325 MG TABLET PO PRN (06:25)
[2018-05-14 07:30] VITALS: BP 111/80
[2018-05-14] MEDS: OLANZAPINE 10 MG TABLET PO SCH ×2 (08:25→20:16)
[2018-05-14] MEDS: OXCARBAZEPINE 150 MG TABLET PO SCH ×2 (08:25→20:15)
[2018-05-14] MEDS: NICOTINE 21 MG/24 HR PATCH.TD24 TD SCH (08:26)
[2018-05-14] MEDS: TOPIRAMATE 100 MG TABLET PO SCH ×2 (08:27→20:15)
[2018-05-14 12:50] LABS: CHOL/HDL RATIO 4.8; LDL/HDL RATIO 2.1 (0.5-3.0)
[2018-05-14] MEDS ORDERED: NAPROXEN 250 MG TABLET PO PRN (14:30)
[2018-05-14] MEDS: MIRTAZAPINE 15 MG TABLET PO SCH (20:15)
[2018-05-14] MEDS: PRAZOSIN 2 MG CAPSULE PO SCH (20:16)
[2018-05-14 20:37] VITALS: BP 111/75
[2018-05-15] MEDS: ASPIRIN 81 MG TABLET EC PO SCH (06:09)
[2018-05-15 07:11] VITALS: BP 130/84
[2018-05-15] MEDS: OXCARBAZEPINE 150 MG TABLET PO SCH ×3 (08:49→20:29)
[2018-05-15] MEDS: METOPROLOL SUCCINATE 50 MG TAB.ER.24H PO SCH (08:49)
[2018-05-15] MEDS: OLANZAPINE 10 MG TABLET PO SCH ×2 (08:50→20:28)
[2018-05-15] MEDS: TOPIRAMATE 100 MG TABLET PO SCH ×2 (08:50→20:29)
[2018-05-15] MEDS: NICOTINE 21 MG/24 HR PATCH.TD24 TD SCH (08:50)
[2018-05-15] MEDS: QUETIAPINE 100MG TABLET PO PRN ×2 (09:00→21:14)
[2018-05-15] MEDS: DOCUSATE 100 MG CAPSULE PO PRN (09:01)
[2018-05-15] MEDS: LORazepam 0.5MG TABLET PO PRN ×2 (12:39→22:26)
[2018-05-15 19:57] LABS: MICROSCOPIC NOT IND
[2018-05-15 20:02] LABS: CULTURE INDICATED? NO
[2018-05-15] MEDS: PRAZOSIN 2 MG CAPSULE PO SCH (20:28)
[2018-05-15] MEDS: MIRTAZAPINE 15 MG TABLET PO SCH (20:29)
[2018-05-15] MEDS: BENZTROPINE 1 MG TABLET PO SCH (20:29)
[2018-05-15] MEDS: NAPROXEN 250 MG TABLET PO SCH (20:29)
[2018-05-16 07:24] VITALS: BP 106/71
[2018-05-16] MEDS: NAPROXEN 250 MG TABLET PO SCH ×2 (08:50→19:41)
[2018-05-16] MEDS: ASPIRIN 81 MG TABLET EC PO SCH (08:50)
[2018-05-16] MEDS: METOPROLOL SUCCINATE 50 MG TAB.ER.24H PO SCH (08:51)
[2018-05-16] MEDS: OXCARBAZEPINE 150 MG TABLET PO SCH ×2 (08:51→19:41)
[2018-05-16] MEDS: BENZTROPINE 1 MG TABLET PO SCH ×2 (08:52→19:41)
[2018-05-16] MEDS: TOPIRAMATE 100 MG TABLET PO SCH ×2 (08:52→19:41)
[2018-05-16] MEDS: OLANZAPINE 5 MG TABLET PO SCH ×2 (08:52→19:41)
[2018-05-16] MEDS: NICOTINE 21 MG/24 HR PATCH.TD24 TD SCH (08:53)
[2018-05-16] MEDS: MIRTAZAPINE 15 MG TABLET PO SCH (19:41)
[2018-05-16] MEDS: LORazepam 0.5MG TABLET PO PRN (19:41)
[2018-05-16] MEDS: PRAZOSIN 2 MG CAPSULE PO SCH (19:41)
[2018-05-16] MEDS: QUETIAPINE 100MG TABLET PO PRN (19:42)
[2018-05-16 19:58] VITALS: BP 129/83
[2018-05-17] MEDS: QUETIAPINE 100MG TABLET PO PRN ×2 (03:24→19:35)
[2018-05-17 07:40] VITALS: BP 112/75
[2018-05-17] MEDS: BENZTROPINE 1 MG TABLET PO SCH ×2 (08:37→19:35)
[2018-05-17] MEDS: ASPIRIN 81 MG TABLET EC PO SCH (08:37)
[2018-05-17] MEDS: OLANZAPINE 5 MG TABLET PO SCH ×2 (08:37→19:34)
[2018-05-17] MEDS: NAPROXEN 250 MG TABLET PO SCH ×2 (08:38→19:35)
[2018-05-17] MEDS: OXCARBAZEPINE 150 MG TABLET PO SCH ×2 (08:38→19:34)
[2018-05-17] MEDS: TOPIRAMATE 100 MG TABLET PO SCH ×2 (08:38→19:35)
[2018-05-17] MEDS: NICOTINE 21 MG/24 HR PATCH.TD24 TD SCH (08:39)
[2018-05-17] MEDS: METOPROLOL SUCCINATE 50 MG TAB.ER.24H PO SCH (08:41)
[2018-05-17] MEDS: FENOFIBRATE 145 MG TABLET PO SCH (09:06)
[2018-05-17] MEDS: MIRTAZAPINE 15 MG TABLET PO SCH (19:34)
[2018-05-17] MEDS: LORazepam 0.5MG TABLET PO PRN (19:34)
[2018-05-17] MEDS: PRAZOSIN 2 MG CAPSULE PO SCH ×2 (19:35→20:00)
[2018-05-17 19:54] VITALS: BP 113/82
[2018-05-18] MEDS: NAPROXEN 250 MG TABLET PO SCH ×2 (08:28→20:30)
[2018-05-18] MEDS: TOPIRAMATE 100 MG TABLET PO SCH ×2 (08:28→20:31)
[2018-05-18] MEDS: FENOFIBRATE 145 MG TABLET PO SCH (08:29)
[2018-05-18] MEDS: ASPIRIN 81 MG TABLET EC PO SCH (08:29)
[2018-05-18] MEDS: OLANZAPINE 5 MG TABLET PO SCH ×2 (08:29→20:30)
[2018-05-18 08:30] VITALS: BP 116/74
[2018-05-18] MEDS: OXCARBAZEPINE 150 MG TABLET PO SCH ×2 (08:30→20:31)
[2018-05-18] MEDS: BENZTROPINE 1 MG TABLET PO SCH ×2 (08:30→20:31)
[2018-05-18] MEDS: METOPROLOL SUCCINATE 50 MG TAB.ER.24H PO SCH (08:32)
[2018-05-18] MEDS: NICOTINE 21 MG/24 HR PATCH.TD24 TD SCH (08:33)
[2018-05-18] MEDS: QUETIAPINE 100MG TABLET PO PRN (11:12)
[2018-05-18 19:41] VITALS: BP 130/87
[2018-05-18] MEDS: PRAZOSIN 2 MG CAPSULE PO SCH (20:31)
[2018-05-18] MEDS: MIRTAZAPINE 15 MG TABLET PO SCH (20:32)
[2018-05-19] MEDS: ACETAMINOPHEN 325 MG TABLET PO PRN (05:18)
[2018-05-19] MEDS: ASPIRIN 81 MG TABLET EC PO SCH (05:18)
[2018-05-19 07:37] VITALS: BP 118/85
[2018-05-19] MEDS: BENZTROPINE 1 MG TABLET PO SCH ×2 (08:35→20:18)
[2018-05-19] MEDS: NAPROXEN 250 MG TABLET PO SCH ×2 (08:36→20:17)
[2018-05-19] MEDS: TOPIRAMATE 100 MG TABLET PO SCH ×2 (08:36→20:17)
[2018-05-19] MEDS: METOPROLOL SUCCINATE 50 MG TAB.ER.24H PO SCH (08:36)
[2018-05-19] MEDS: OLANZAPINE 5 MG TABLET PO SCH ×2 (08:37→20:17)
[2018-05-19] MEDS: FENOFIBRATE 145 MG TABLET PO SCH (08:37)
[2018-05-19] MEDS: OXCARBAZEPINE 150 MG TABLET PO SCH ×2 (08:37→20:17)
[2018-05-19] MEDS: NICOTINE 21 MG/24 HR PATCH.TD24 TD SCH (08:38)
[2018-05-19 19:45] VITALS: BP 146/97
[2018-05-19] MEDS: PRAZOSIN 2 MG CAPSULE PO SCH (20:17)
[2018-05-19] MEDS: MIRTAZAPINE 15 MG TABLET PO SCH (20:17)
[2018-05-19] MEDS: QUETIAPINE 100MG TABLET PO PRN (20:24)
[2018-05-20] MEDS: ACETAMINOPHEN 325 MG TABLET PO PRN (02:36)
[2018-05-20] MEDS: ASPIRIN 81 MG TABLET EC PO SCH (05:34)
[2018-05-20 07:59] VITALS: BP 107/65
[2018-05-20] MEDS: TOPIRAMATE 100 MG TABLET PO SCH ×2 (08:10→20:39)
[2018-05-20] MEDS: BENZTROPINE 1 MG TABLET PO SCH ×2 (08:10→20:40)
[2018-05-20] MEDS: NAPROXEN 250 MG TABLET PO SCH ×2 (08:10→20:39)
[2018-05-20] MEDS: NICOTINE 21 MG/24 HR PATCH.TD24 TD SCH (08:10)
[2018-05-20] MEDS: OXCARBAZEPINE 150 MG TABLET PO SCH ×2 (08:10→20:38)
[2018-05-20] MEDS: OLANZAPINE 5 MG TABLET PO SCH ×2 (08:10→20:39)
[2018-05-20] MEDS: METOPROLOL SUCCINATE 50 MG TAB.ER.24H PO SCH (08:11)
[2018-05-20] MEDS: FENOFIBRATE 145 MG TABLET PO SCH (08:11)
[2018-05-20] MEDS: LORazepam 0.5MG TABLET PO PRN (11:26)
[2018-05-20] MEDS: QUETIAPINE 100MG TABLET PO PRN ×2 (15:23→21:25)
[2018-05-20 20:00] VITALS: BP 131/75
[2018-05-20] MEDS: PRAZOSIN 2 MG CAPSULE PO SCH (20:39)
[2018-05-20] MEDS: MIRTAZAPINE 15 MG TABLET PO SCH (20:39)
[2018-05-21] MEDS: ACETAMINOPHEN 325 MG TABLET PO PRN (04:29)
[2018-05-21] MEDS: LORazepam 0.5MG TABLET PO PRN (04:29)
[2018-05-21] MEDS: ASPIRIN 81 MG TABLET EC PO SCH (05:07)
[2018-05-21 07:25] VITALS: BP 108/70
[2018-05-21] MEDS: FENOFIBRATE 145 MG TABLET PO SCH (09:08)
[2018-05-21] MEDS: OLANZAPINE 5 MG TABLET PO SCH ×2 (09:08→20:13)
[2018-05-21] MEDS: OXCARBAZEPINE 150 MG TABLET PO SCH ×2 (09:09→20:12)
[2018-05-21] MEDS: TOPIRAMATE 100 MG TABLET PO SCH ×2 (09:09→20:12)
[2018-05-21] MEDS: METOPROLOL SUCCINATE 50 MG TAB.ER.24H PO SCH (09:09)
[2018-05-21] MEDS: NAPROXEN 250 MG TABLET PO SCH ×2 (09:09→20:12)
[2018-05-21] MEDS: DOCUSATE 100 MG CAPSULE PO PRN (09:09)
[2018-05-21] MEDS: BENZTROPINE 1 MG TABLET PO SCH ×2 (09:09→20:12)
[2018-05-21] MEDS: NICOTINE 21 MG/24 HR PATCH.TD24 TD SCH (09:10)
[2018-05-21] MEDS: PRAZOSIN 2 MG CAPSULE PO SCH (20:12)
[2018-05-21] MEDS: QUETIAPINE 100MG TABLET PO PRN (20:12)
[2018-05-21] MEDS: MIRTAZAPINE 15 MG TABLET PO SCH (20:13)
[2018-05-21 20:14] VITALS: BP 139/83
[2018-05-22] MEDS: QUETIAPINE 100MG TABLET PO PRN (03:30)
[2018-05-22] MEDS: LORazepam 0.5MG TABLET PO PRN (03:30)
[2018-05-22] MEDS: ACETAMINOPHEN 325 MG TABLET PO PRN (03:30)
[2018-05-22] MEDS: ASPIRIN 81 MG TABLET EC PO SCH (06:05)
[2018-05-22 07:40] VITALS: BP 117/77
[2018-05-22] MEDS: OLANZAPINE 5 MG TABLET PO SCH (09:24)
[2018-05-22] MEDS: DOCUSATE 100 MG CAPSULE PO PRN (09:24)
[2018-05-22] MEDS: NICOTINE 21 MG/24 HR PATCH.TD24 TD SCH (09:24)
[2018-05-22] MEDS: METOPROLOL SUCCINATE 50 MG TAB.ER.24H PO SCH (09:25)
[2018-05-22] MEDS: NAPROXEN 250 MG TABLET PO SCH (09:25)
[2018-05-22] MEDS: FENOFIBRATE 145 MG TABLET PO SCH (09:25)
[2018-05-22] MEDS: BENZTROPINE 1 MG TABLET PO SCH (09:25)
[2018-05-22] MEDS: TOPIRAMATE 100 MG TABLET PO SCH (09:25)
[2018-05-22] MEDS: OXCARBAZEPINE 150 MG TABLET PO SCH (09:25)
== END 2018-05-22 12:30 | disposition home or self-care (01) | DRG 885 ==
LOC: 3E 21:05
PROVIDERS: ADMIT Psychiatry & Neurology Psychosomatic Medicine; ATTEND Psychiatry & Neurology Psychosomatic Medicine
DX: F20.0 Paranoid schizophrenia (principal); R45.851 Suicidal ideations; F15.21 Other stimulant dependence, in remission; B18.2 Chronic viral hepatitis C; E78.1 Pure hyperglyceridemia; F12.90 Cannabis use, unspecified, uncomplicated; F17.210 Nicotine dependence, cigarettes, uncomplicated; F31.30 Bipolar disorder, current episode depressed, mild or moderate severity, unspecified; G47.00 Insomnia, unspecified; G89.29 Other chronic pain; I10 Essential (primary) hypertension; I25.10 Atherosclerotic heart disease of native coronary artery without angina pectoris; J45.909 Unspecified asthma, uncomplicated; Z91.19 Patient's noncompliance with other medical treatment and regimen; Z88.3 Allergy status to other anti-infective agents; Z79.82 Long term (current) use of aspirin; Z88.8 Allergy status to other drugs, medicaments and biological substances; Z79.899 Other long term (current) drug therapy; Z82.49 Family history of ischemic heart disease and other diseases of the circulatory system; Z82.0 Family history of epilepsy and other diseases of the nervous system
CPT/HCPCS: 36415; 80061; 81003; 84439; 84443

== ENCOUNTER 2018-12-23 10:05 | Emergency (ER) | payer MEDICARE, MEDICAID ==
[~2018-12-23] VITALS: Ht 177.8 cm; Wt 92.0 kg
[~2018-12-23 10:05] MED LIST changes: +ATOR20TA PO; +ATOR20TA37 PO; +CARB100T4 PO; +CARB200T2 PO; -IBUP-1484 PO; +IBUP-1902 PO; +MIRT-34 PO; +NICO-487 TD; +QUET100T PO; +ZIPR40CA2 PO
[2018-12-23 10:09] VITALS: BP 130/84
--- NOTE | 2018-12-23 10:25 | NUR ---
PT STATES HE IS TAKING ALL MEDICATIONS PRESCRIBED AT HOME. DENIES SI/HI.
--- NOTE | 2018-12-23 10:25 | NUR ---
PT HERE TODAY FOR MULTIPLE PAINS ACROSS BODY- STATES IT IS IN HIS LOWER BACK GOING DOWN HIS LEFT LEG. SITTING ON GURNEY. BRIGID. ROM 5/5 STRENGTH. BRIGID.
--- NOTE | 2018-12-23 10:52 | NUR ---
MD AT BEDSIDE ASSESSING PT NOW.
[2018-12-23 11:19] LABS: BASOPHILS # (AUTO) 0.03 x10^3/uL (0-0.1); BASOPHILS % (AUTO) 1 % (0-1); EOSINOPHILS # (AUTO) 0.15 x10^3/uL (0-0.4); EOSINOPHILS % (AUTO) 2 % (1-7); LYMPHOCYTES # (AUTO) 1.87 x10^3/uL (1-3.4); LYMPHOCYTES % (AUTO) 30 % (22-44); MD NO; MEAN CORPUSCULAR HGB CONC 33.7 g/dL (33.2-36.2); MEAN CORPUSCULAR VOLUME 91.8 fL (81-97); MEAN PLATELET VOLUME 7.3 fL (7.4-10.4); MONOCYTES # (AUTO) 0.27 x10^3/uL (0.2-0.8); MONOCYTES % (AUTO) 4 % (2-9); NEUTROPHILS % (AUTO) 63 % (42-75); PLATELET COUNT 241 x10^3/uL (130-400); RED BLOOD COUNT 4.89 x10^6/uL (4.38-5.82)
[2018-12-23 11:25] LABS: ALBUMIN 3.9 g/dL (3.4-5.0); ANION GAP 8 mmol/L (5-15); CALCIUM 9.1 mg/dL (8.5-10.1); CHLORIDE 110 mmol/L (98-107); CREATININE 0.77 mg/dL (0.7-1.3)
[2018-12-23 11:27] LABS: CREATINE KINASE, TOTAL 166 U/L (39-308)
== END 2018-12-23 11:44 | disposition home or self-care (01) ==
LOC: ED 11:35
DX: F20.0 Paranoid schizophrenia (principal); R51 Headache; M79.661 Pain in right lower leg; M79.662 Pain in left lower leg; I10 Essential (primary) hypertension; F20.9 Schizophrenia, unspecified; G40.909 Epilepsy, unspecified, not intractable, without status epilepticus; F31.9 Bipolar disorder, unspecified; F17.200 Nicotine dependence, unspecified, uncomplicated
CPT/HCPCS: 36415; 80048; 82040; 82550; 85025; 99283

== ENCOUNTER 2019-02-10 09:50 | Emergency (ER) | payer MEDICARE, MEDICAID ==
[~2019-02-10] VITALS: Ht 177.8 cm; Wt 95.8 kg
[~2019-02-10 09:50] MED LIST changes: +CARB200T4 PO; +HYDR50CA2 PO; +METO50TA82 PO
--- NOTE | 2019-02-10 10:30 | NUR ---
PATIENT NOT IN LOBBY X2
[2019-02-10 10:31] VITALS: BP 113/80
--- NOTE | 2019-02-10 10:47 | NUR ---
MEDICAL EDITOR: PT TO ROOM FROM [facility]
--- NOTE | 2019-02-10 11:24 | NUR ---
PT TRIP HE HAS THE WEST NILE VIRUS W SYMPTOMS OF NAUSEA, AND ADBOMINAL PAIN. PT IS VERBALLY AGGRESSIVE TOWARDS STAFF. PA AT BEDSIDE.
== END 2019-02-10 11:50 | disposition home or self-care (01) ==
LOC: ED 11:39
DX: R10.84 Generalized abdominal pain (principal); F20.9 Schizophrenia, unspecified; L84 Corns and callosities; I10 Essential (primary) hypertension; E11.9 Type 2 diabetes mellitus without complications; G43.909 Migraine, unspecified, not intractable, without status migrainosus
CPT/HCPCS: 99281; 99283

== ENCOUNTER 2019-02-23 20:16 | Emergency (ER) | payer MEDICARE, MEDICAID ==
[~2019-02-23] VITALS: Ht 170.2 cm; Wt 94.6 kg
[2019-02-23 20:18] VITALS: BP 125/89
--- NOTE | 2019-02-23 20:33 | NUR ---
NO ANSWER WHEN CALLED FOR ROOM
--- NOTE | 2019-02-23 20:57 | NUR ---
PT. AMBULATORY TO ROOM FROM [facility] AT THIS TIME. PT. CARRYING A DUFFLE BAG AND CARRYING CRUTCHES. PT. STATES "I HAVE BEEN HEARING THINGS AND SEEING THINGS THAT AREN'T BAHAI OR POSSIBLE AND SOME THINGS ARE COMING AT ME." PT. REPORTS HX OF SCHITZOPHRENIA AND STATES IS TAKING MEDS HE IS SUPPOSED TO. PT. DENIES SI/HI. PT. AWAITING PROVIDER EVAL.
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
--- NOTE | 2019-02-23 21:16 | NUR ---
CRISTINE NI AT BS TO HANK PT. AND DISCUSS POC AT THIS TIME .
--- NOTE | 2019-02-23 21:38 | NUR ---
URINE COLLECTED AND SENT TO LAB. PT. CHANGED INTO GOWN AND ALL BELONGINGS SECURED IN LOCKER. ROOM SECURED AND SITTER IN SANCHEZ.
[2019-02-23 21:54] LABS: BASOPHILS # (AUTO) 0.04 x10^3/uL (0-0.1); BASOPHILS % (AUTO) 1 % (0-1); EOSINOPHILS # (AUTO) 0.15 x10^3/uL (0-0.4); EOSINOPHILS % (AUTO) 2 % (1-7); LYMPHOCYTES # (AUTO) 2.54 x10^3/uL (1-3.4); LYMPHOCYTES % (AUTO) 32 % (22-44); MD NO; MEAN CORPUSCULAR HEMOGLOBIN 30.4 pg (27.5-34.5); MEAN CORPUSCULAR HGB CONC 33.1 g/dL (33.2-36.2); MEAN CORPUSCULAR VOLUME 91.7 fL (81-97); MEAN PLATELET VOLUME 6.9 fL (7.4-10.4); MONOCYTES # (AUTO) 0.34 x10^3/uL (0.2-0.8); MONOCYTES % (AUTO) 4 % (2-9); NEUTROPHILS # (AUTO) 4.83 x10^3/uL (1.8-6.8); NEUTROPHILS % (AUTO) 61 % (42-75); PLATELET COUNT 276 x10^3/uL (130-400); RED BLOOD COUNT 5.28 x10^6/uL (4.38-5.82); RED CELL DISTRIBUTION WIDTH 13.6 % (9.4-14.8)
[2019-02-23 22:07] LABS: ALBUMIN 3.9 g/dL (3.4-5.0); ANION GAP 10 mmol/L (5-15); CALCIUM 8.5 mg/dL (8.5-10.1); CHLORIDE 111 mmol/L (98-107)
[2019-02-23 22:09] LABS: CREATININE 0.74 mg/dL (0.7-1.3); SALICYLATE LEVEL 2.8 mg/dL (2.8-20.0)
--- NOTE | 2019-02-23 22:28 | NUR ---
PT. RESTING ON GURNEY IN POSTION. RESPIRAIONS VISIBLE AND NON-LABORED. EYES CLOSED. SITTER REMAINS IN DIRECT VIEW. ROOM SECURED.
[2019-02-23 22:29] LABS: AMPHETAMINE SCREEN, URINE Negative (Negative); BARBITURATE SCREEN, URINE Negative (Negative); BENZODIAZEPINE SCREEN, URINE Negative (Negative); CANNABINOID SCREEN, URINE Negative (Negative); COCAINE SCREEN, URINE Negative (Negative); METHADONE SCREEN, URINE Negative (Negative); OPIATE SCREEN, URINE Negative (Negative)
--- NOTE | 2019-02-23 23:24 | NUR ---
PT. CONTINUES RESTING ON GURNEY WITH EYES CLOSED. EVEN, NON-LABORED RESPIRATIONS VISIBLE. ROOM REMAINS SECURED. SITTER IN SANCHEZ. AWAITING TELEPSYCH EVAL.
--- NOTE | 2019-02-23 23:35 | NUR ---
REPORT TO TELEPSYCH .
--- NOTE | 2019-02-23 23:37 | NUR ---
PINA PTZeferino AND SAT HIM UP IN THE GURNEY; HANK IN PROCESS NOW.
--- NOTE | 2019-02-23 23:53 | NUR ---
TELEPSYCH EVAL COMPLETED AND MD IS RECOMMENDING D/C WITH OUTPATIENT SERVICES. PT. BELONGINGS GIVEN BACK AND PT. GETTING DRESSED. AWAITING D/C PAPERS.
== END 2019-02-24 00:29 | disposition home or self-care (01) ==
LOC: ED 21:14
DX: F20.9 Schizophrenia, unspecified (principal); E11.9 Type 2 diabetes mellitus without complications; F32.9 Major depressive disorder, single episode, unspecified; R45.851 Suicidal ideations; G43.909 Migraine, unspecified, not intractable, without status migrainosus; Z72.9 Problem related to lifestyle, unspecified
CPT/HCPCS: 36415; 80048; 80307; 82040; 85025; 93005; 99284

== ENCOUNTER 2019-03-06 13:42 | Emergency (ER) | payer MEDICARE, MEDICAID ==
[~2019-03-06] VITALS: Ht 177.8 cm; Wt 91.3 kg
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
--- NOTE | 2019-03-06 14:30 | NUR ---
Psych BURLAP BAG SEWER paged as requested by Dr. Palmer at this time. Message left on voicemail left as no one picked up.
--- NOTE | 2019-03-06 14:50 | NUR ---
Text from Psych ADVANCED MANUFACTURING VICE PRESIDENT who states they are finishing up with a medical patient and then will come down and assess patient.
[2019-03-06 15:01] LABS: ALANINE AMINOTRANSFERASE 30 U/L (12-78); ALBUMIN 4.4 g/dL (3.4-5.0); ANION GAP 8 mmol/L (5-15); CALCIUM 8.7 mg/dL (8.5-10.1); CHLORIDE 111 mmol/L (98-107); CREATININE 0.83 mg/dL (0.7-1.3); SALICYLATE LEVEL 1.8 mg/dL (2.8-20.0)
[2019-03-06 15:02] LABS: BASOPHILS # (AUTO) 0.04 x10^3/uL (0-0.1); BASOPHILS % (AUTO) 0 % (0-1); EOSINOPHILS # (AUTO) 0.01 x10^3/uL (0-0.4); EOSINOPHILS % (AUTO) 0 % (1-7); LYMPHOCYTES % (AUTO) 16 % (22-44); MD NO; MEAN CORPUSCULAR HEMOGLOBIN 30.1 pg (27.5-34.5); MEAN CORPUSCULAR HGB CONC 33.2 g/dL (33.2-36.2); MEAN CORPUSCULAR VOLUME 90.6 fL (81-97); MEAN PLATELET VOLUME 7.2 fL (7.4-10.4); MONOCYTES # (AUTO) 0.44 x10^3/uL (0.2-0.8); MONOCYTES % (AUTO) 5 % (2-9); NEUTROPHILS # (AUTO) 7.81 x10^3/uL (1.8-6.8); NEUTROPHILS % (AUTO) 79 % (42-75); PLATELET COUNT 249 x10^3/uL (130-400); RED BLOOD COUNT 5.24 x10^6/uL (4.38-5.82); RED CELL DISTRIBUTION WIDTH 13.3 % (9.4-14.8)
[2019-03-06 15:03] LABS: ALKALINE PHOSPHATASE 78 U/L (45-117); BILIRUBIN,TOTAL 0.6 mg/dL (0.2-1.0); TOTAL PROTEIN 7.9 g/dL (6.4-8.2)
--- NOTE | 2019-03-06 15:08 | NUR ---
pt changed into gown. UA sent. vss. pt noted to be talking to himself. call menard in reach side rails x2.
--- NOTE | 2019-03-06 15:19 | NUR ---
SALMA BRIM MOLDER AT BEDSIDE FOR EVALUATION.
[2019-03-06] MEDS ORDERED: CARBAMAZEPINE 200 MG TABLET PO ONE (15:30)
[2019-03-06] MEDS ORDERED: ZIPRASIDONE 40MG CAPSULE PO ONE (15:30)
[2019-03-06] MEDS ORDERED: ARIPIPRAZOLE 10 MG TABLET PO ONE (15:30)
[2019-03-06] MEDS ORDERED: CARBAMAZEPINE 200 MG TABLET ONE (15:33)
[2019-03-06] MEDS ORDERED: ZIPRASIDONE 20MG CAPSULE ONE (15:33)
[2019-03-06] MEDS ORDERED: ARIPIPRAZOLE 10 MG TABLET ONE (15:33)
--- NOTE | 2019-03-06 15:39 | NUR ---
PT MEDICATED PER ORDERS.
[2019-03-06 15:45] VITALS: BP 123/91
[2019-03-06 15:53] LABS: AMPHETAMINE SCREEN, URINE Negative (Negative); BARBITURATE SCREEN, URINE Negative (Negative); BENZODIAZEPINE SCREEN, URINE Negative (Negative); CANNABINOID SCREEN, URINE Negative (Negative); COCAINE SCREEN, URINE Negative (Negative); METHADONE SCREEN, URINE Negative (Negative); OPIATE SCREEN, URINE Negative (Negative)
--- NOTE | 2019-03-06 16:04 | NUR ---
UPDATED ON UDS RESULTS, PLAN FOR PT TO BE PLACED ON A LEGAL HOLD BY TAX ASSESSOR. SWITCH FOREMAN UPDATED, PLAN TO MOVE TO PSYCH ROOM SOON ONE BECOMES AVAILABLE.
--- NOTE | 2019-03-06 16:25 | NUR ---
SITTER IN HALLWAY FOR CLOSE OBS PRECAUTIONS.
--- NOTE | 2019-03-06 16:37 | NUR ---
1 BAG OF BELONGINGS TAGGED AND PLACED IN LOCKER.
--- NOTE | 2019-03-06 16:40 | NUR ---
PACKET FAXED TO [facility]. [facility] TO OVERLOOK CHART AND CALL BACK
--- NOTE | 2019-03-06 17:17 | NUR ---
REPORT GIVEN TO ELAINE RN. PT TO TRANSFER FROM 36 TO ROOM 39.
--- NOTE | 2019-03-06 17:26 | NUR ---
THROUGHPUT: PER [facility], WILL ACCEPT PT
--- NOTE | 2019-03-06 17:29 | NUR ---
SBAR HAND-OFF REPORT RECEIVED FROM EVELIN SEPULVEDA. MOVED PATIENT TO ROOM 39. DINNER TRAY ORDERED.
--- NOTE | 2019-03-06 17:33 | NUR ---
ACCEPTING DOCTOR V ACCEPTED BY LINDSAY WATERS READY TO GO NOW TO 385
--- NOTE | 2019-03-06 17:39 | NUR ---
SBAR TELEPHONE HAND-OFF REPORT TO EVELIN MONTOYA ON 3E. PT READY TO GO TO HOSPITAL ROOM.
--- NOTE | 2019-03-06 17:45 | NUR ---
DINNER SERVED TO PATIENT.
== END 2019-03-06 18:07 | disposition other institution (70) ==
LOC: ED 13:59 → 3E 17:30 → UNDOADMIN 17:30 → ED 18:07
DX: F20.0 Paranoid schizophrenia (principal); I10 Essential (primary) hypertension; E11.9 Type 2 diabetes mellitus without complications; G40.909 Epilepsy, unspecified, not intractable, without status epilepticus
CPT/HCPCS: 36415; 80053; 80307; 85025; 93005; 99284

== ENCOUNTER 2019-05-15 17:35 | Emergency (ER) | payer MEDICARE ==
[~2019-05-15] VITALS: Ht 177.8 cm; Wt 86.5 kg
[~2019-05-15 17:35] MED LIST changes: +METO-264 PO; +NICO-486 TD; -TRAZ-137 PO; +TRAZ-175 PO; +sodium PO
--- NOTE | 2019-05-15 17:59 | NUR ---
CRISTINE SCHAEFER AT BEDSIDE TALKING W/ PT. PT CURRENTLY CALM.
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
--- NOTE | 2019-05-15 18:16 | NUR ---
PT STATES HE IS CONCERNED ABOUT PEOPLE SAYING THINGS TO HIM THAT DON'T MAKE SENSE. ADMITS TO HEARING VOICES: "TALKING ABOUT MUSIC AND STUFF AND SPIDERS". SEEING THINGS BUT REPORTS HE DOESN'T KNOW WHAT THEY ARE.
[2019-05-15] MEDS ORDERED: QUETIAPINE 25MG TABLET PO ONE (18:30)
[2019-05-15 18:42] LABS: BASOPHILS # (AUTO) 0.05 x10^3/uL (0-0.1); BASOPHILS % (AUTO) 1 % (0-1); EOSINOPHILS # (AUTO) 0.16 x10^3/uL (0-0.4); EOSINOPHILS % (AUTO) 2 % (1-7); LYMPHOCYTES # (AUTO) 2.01 x10^3/uL (1-3.4); LYMPHOCYTES % (AUTO) 27 % (22-44); MD NO; MEAN CORPUSCULAR HEMOGLOBIN 30.2 pg (27.5-34.5); MEAN CORPUSCULAR HGB CONC 33.6 g/dL (33.2-36.2); MEAN PLATELET VOLUME 7.6 fL (7.4-10.4); MONOCYTES # (AUTO) 0.37 x10^3/uL (0.2-0.8); MONOCYTES % (AUTO) 5 % (2-9); NEUTROPHILS # (AUTO) 4.89 x10^3/uL (1.8-6.8); NEUTROPHILS % (AUTO) 65 % (42-75); PLATELET COUNT 194 x10^3/uL (130-400); RED BLOOD COUNT 4.97 x10^6/uL (4.38-5.82); RED CELL DISTRIBUTION WIDTH 14.4 % (9.4-14.8)
[2019-05-15] MEDS ORDERED: QUETIAPINE 25MG TABLET ONE ×2 (18:42→18:47)
[2019-05-15 18:53] LABS: ALBUMIN 3.5 g/dL (3.4-5.0); ANION GAP 6 mmol/L (5-15); CALCIUM 8.1 mg/dL (8.5-10.1); CHLORIDE 110 mmol/L (98-107); CREATININE 0.72 mg/dL (0.7-1.3); SALICYLATE LEVEL 1.9 mg/dL (2.8-20.0)
[2019-05-15 19:25] LABS: AMPHETAMINE SCREEN, URINE Negative (Negative); BARBITURATE SCREEN, URINE Negative (Negative); BENZODIAZEPINE SCREEN, URINE Negative (Negative); CANNABINOID SCREEN, URINE Negative (Negative); COCAINE SCREEN, URINE Negative (Negative); METHADONE SCREEN, URINE Negative (Negative); OPIATE SCREEN, URINE Negative (Negative)
[2019-05-15] MEDS ORDERED: QUETIAPINE 100MG TABLET ONE (19:59)
--- NOTE | 2019-05-15 20:09 | NUR ---
PT LYING QUIETLY ON GURNEY. SEROQUEL 200MG PO GIVEN. PT NOW ON LEGAL HOLD; DOCUMENT ON CHART; SITTER OUTSIDE ROOM.
--- NOTE | 2019-05-15 20:45 | NUR ---
PT ASLEEP, EVEN CHEST RISE & FALL NOTED. SITTER OUTSIDE ROOM
[2019-05-15] MEDS ORDERED: QUETIAPINE 200 MG TABLET PO SCH (21:00)
--- NOTE | 2019-05-15 21:15 | NUR ---
PT REQUESTING FOOD. CAFETERIA CURRENTLY CLOSED; CEREAL AND BEVERAGE FROM ED STOCK PROVIDED.
--- NOTE | 2019-05-15 21:44 | NUR ---
PT REPORT TO EVELIN HEATH FOR ROOM 391-1
[2019-05-15 21:49] VITALS: BP 94/59
== END 2019-05-15 21:57 | disposition home or self-care (01) ==
LOC: ED 21:17 → UNDOADMIN 21:41 → 3E 21:41 → ED 21:57
DX: F28 Other psychotic disorder not due to a substance or known physiological condition (principal); K21.9 Gastro-esophageal reflux disease without esophagitis; I10 Essential (primary) hypertension; E11.9 Type 2 diabetes mellitus without complications; F20.9 Schizophrenia, unspecified; F17.210 Nicotine dependence, cigarettes, uncomplicated
CPT/HCPCS: 36415; 80048; 80307; 82040; 85025; 99283

== ENCOUNTER 2019-05-15 22:04 | Inpatient (IN) | payer MEDICARE ==
[~2019-05-15] VITALS: Ht 177.8 cm; Wt 93.6 kg
[2019-05-15] MEDS ORDERED: POLYETHYLENE GLYCOL 17 GM PACKET PO PRN (23:00)
[2019-05-15] MEDS ORDERED: ONDANSETRON ODT 4 MG PO PRN (23:00)
[2019-05-15] MEDS ORDERED: DOCUSATE 100 MG CAPSULE PO PRN (23:00)
[2019-05-15] MEDS ORDERED: BISACODYL 10 MG SUPP PR PRN (23:00)
[2019-05-16 00:11] VITALS: BP 112/74
[2019-05-16 00:36] LABS: ALANINE AMINOTRANSFERASE 16 U/L (12-78); ALBUMIN 3.7 g/dL (3.4-5.0)
[2019-05-16 00:37] LABS: BILIRUBIN, DIRECT < 0.1 mg/dL (0.1-0.2)
[2019-05-16 00:38] LABS: ALKALINE PHOSPHATASE 60 U/L (45-117); BILIRUBIN,INDIRECT 0.1 mg/dL (0.0-2.0); BILIRUBIN,TOTAL 0.2 mg/dL (0.2-1.0); TOTAL PROTEIN 7.2 g/dL (6.4-8.2)
[2019-05-16 00:42] LABS: MICROSCOPIC NOT IND
[2019-05-16 00:55] LABS: CULTURE INDICATED? NO
[2019-05-16 07:55] VITALS: BP 100/59
[2019-05-16] MEDS ORDERED: NICOTINE 21 MG/24 HR PATCH.TD24 TD SCH (09:00)
[2019-05-16] MEDS ORDERED: TOPIRAMATE 100 MG TABLET PO SCH (09:00)
[2019-05-16] MEDS ORDERED: ZIPRASIDONE 40MG CAPSULE PO SCH (09:00)
[2019-05-16] MEDS ORDERED: CARBAMAZEPINE 100 MG TAB.CHEW PO SCH (09:00)
[2019-05-16] MEDS ORDERED: ARIPIPRAZOLE 10 MG TABLET PO SCH (09:00)
[2019-05-16] MEDS ORDERED: SUMATRIPTAN 25 MG TABLET PO PRN (14:30)
[2019-05-16] MEDS: ASPIRIN 81 MG TABLET EC PO SCH (14:43)
[2019-05-16] MEDS: LURASIDONE 20 MG TABLET PO SCH (14:43)
[2019-05-16] MEDS: METOPROLOL TARTRATE 25 MG TAB PO SCH (14:45)
[2019-05-16 19:15] VITALS: BP 123/79
[2019-05-16] MEDS: ATORVASTATIN 20 MG TABLET PO SCH (20:44)
[2019-05-16] MEDS: PRAZOSIN 2 MG CAPSULE PO SCH (20:44)
[2019-05-16] MEDS: MIRTAZAPINE 15 MG TABLET PO SCH (20:44)
[2019-05-16] MEDS ORDERED: QUETIAPINE 100MG TABLET PO SCH (21:00)
[2019-05-16] MEDS: DIVALPROEX 500 MG TABLET.DR PO SCH (21:14)
[2019-05-17] MEDS: ACETAMINOPHEN 325 MG TABLET PO PRN ×2 (03:57→20:22)
[2019-05-17] MEDS ORDERED: LORazepam 2 MG/ML, 1ML ONE (04:28)
[2019-05-17] MEDS ORDERED: LORazepam 2 MG/ML, 1ML IM PRN (04:30)
[2019-05-17] MEDS: ASPIRIN 81 MG TABLET EC PO SCH (05:56)
[2019-05-17] MEDS ORDERED: ASPIRIN 81 MG TABLET EC PO SCH (06:00)
[2019-05-17 07:34] VITALS: BP 114/67
[2019-05-17] MEDS: LURASIDONE 20 MG TABLET PO SCH (09:14)
[2019-05-17] MEDS: DIVALPROEX 500 MG TABLET.DR PO SCH ×2 (09:14→20:21)
[2019-05-17] MEDS: METOPROLOL TARTRATE 25 MG TAB PO SCH (09:14)
[2019-05-17] MEDS ORDERED: SUMATRIPTAN 25 MG TABLET PO PRN (11:30)
[2019-05-17] MEDS: ATORVASTATIN 20 MG TABLET PO SCH (20:21)
[2019-05-17] MEDS: PRAZOSIN 2 MG CAPSULE PO SCH (20:22)
[2019-05-17] MEDS: MIRTAZAPINE 15 MG TABLET PO SCH (20:22)
[2019-05-18] MEDS: ACETAMINOPHEN 325 MG TABLET PO PRN ×2 (01:26→20:55)
[2019-05-18] MEDS: NICOTINE GUM 2 MG BC PRN ×4 (04:32→19:37)
[2019-05-18] MEDS: ASPIRIN 81 MG TABLET EC PO SCH (06:03)
[2019-05-18 07:18] VITALS: BP 102/67
[2019-05-18] MEDS: DIVALPROEX 500 MG TABLET.DR PO SCH ×2 (08:39→20:54)
[2019-05-18] MEDS: LURASIDONE 20 MG TABLET PO SCH (08:39)
[2019-05-18] MEDS: SUMATRIPTAN 50 MG TABLET PO PRN (09:52)
[2019-05-18] MEDS: METOPROLOL TARTRATE 25 MG TAB PO SCH (14:01)
[2019-05-18] MEDS: FLUOXETINE 10 MG CAP PO SCH (15:59)
[2019-05-18 19:51] VITALS: BP 126/80
[2019-05-18] MEDS: ATORVASTATIN 20 MG TABLET PO SCH (20:54)
[2019-05-18] MEDS: PRAZOSIN 2 MG CAPSULE PO SCH (20:54)
[2019-05-18] MEDS: MIRTAZAPINE 15 MG TABLET PO SCH (20:55)
[2019-05-19] MEDS: NICOTINE GUM 2 MG BC PRN ×3 (04:07→17:43)
[2019-05-19] MEDS: ACETAMINOPHEN 325 MG TABLET PO PRN ×3 (04:07→21:03)
[2019-05-19] MEDS: LORazepam 1MG TABLET PO PRN ×2 (04:57→21:31)
[2019-05-19] MEDS: ASPIRIN 81 MG TABLET EC PO SCH (04:57)
[2019-05-19 07:43] VITALS: BP 110/75
[2019-05-19] MEDS: FLUOXETINE 10 MG CAP PO SCH (08:03)
[2019-05-19] MEDS: METOPROLOL TARTRATE 25 MG TAB PO SCH (08:03)
[2019-05-19] MEDS: DIVALPROEX 500 MG TABLET.DR PO SCH ×2 (08:03→20:15)
[2019-05-19] MEDS: LURASIDONE 20 MG TABLET PO SCH (08:03)
[2019-05-19] MEDS ORDERED: DIVA-61 PO (18:19)
[2019-05-19] MEDS ORDERED: METO25TA35 PO (18:19)
[2019-05-19] MEDS ORDERED: FLUO10CA14 PO (18:19)
[2019-05-19] MEDS ORDERED: PRAZ2CAP2 PO ×2 (18:19)
[2019-05-19] MEDS ORDERED: MIRT-34 PO (18:19)
[2019-05-19] MEDS ORDERED: ATOR20TA37 PO (18:19)
[2019-05-19] MEDS ORDERED: ASPI81TA45 PO (18:19)
[2019-05-19] MEDS ORDERED: LURA20TA PO (18:19)
[2019-05-19 19:51] VITALS: BP 132/79
[2019-05-19] MEDS: ATORVASTATIN 20 MG TABLET PO SCH (20:15)
[2019-05-19] MEDS: MIRTAZAPINE 15 MG TABLET PO SCH (20:15)
[2019-05-19] MEDS: PRAZOSIN 2 MG CAPSULE PO SCH (20:16)
[2019-05-20] MEDS: NICOTINE GUM 2 MG BC PRN (03:26)
[2019-05-20] MEDS: LORazepam 1MG TABLET PO PRN (03:42)
[2019-05-20] MEDS: SUMATRIPTAN 50 MG TABLET PO PRN (03:47)
[2019-05-20] MEDS: ASPIRIN 81 MG TABLET EC PO SCH (05:54)
[2019-05-20 07:30] VITALS: BP 114/81
[2019-05-20] MEDS: FLUOXETINE 10 MG CAP PO SCH (08:31)
[2019-05-20] MEDS: DIVALPROEX 500 MG TABLET.DR PO SCH (08:31)
[2019-05-20] MEDS: METOPROLOL TARTRATE 25 MG TAB PO SCH (08:31)
[2019-05-20] MEDS: LURASIDONE 20 MG TABLET PO SCH (08:31)
[2019-05-20] MEDS ORDERED: SUMA50TA3 PO (08:58)
== END 2019-05-20 09:24 | disposition home or self-care (01) | DRG 885 ==
LOC: 3E 22:16 → UNDOADMIN 22:16 → 3E 22:21
PROVIDERS: ADMIT Psychiatry & Neurology Psychosomatic Medicine; ATTEND Psychiatry & Neurology Psychosomatic Medicine
DX: F20.0 Paranoid schizophrenia (principal); B19.20 Unspecified viral hepatitis C without hepatic coma; E78.5 Hyperlipidemia, unspecified; F15.10 Other stimulant abuse, uncomplicated; F32.9 Major depressive disorder, single episode, unspecified; G43.909 Migraine, unspecified, not intractable, without status migrainosus; G47.00 Insomnia, unspecified; I10 Essential (primary) hypertension; I25.10 Atherosclerotic heart disease of native coronary artery without angina pectoris; F17.210 Nicotine dependence, cigarettes, uncomplicated; F12.20 Cannabis dependence, uncomplicated; J45.909 Unspecified asthma, uncomplicated; Z79.82 Long term (current) use of aspirin; Z79.899 Other long term (current) drug therapy; Z80.9 Family history of malignant neoplasm, unspecified; Z84.89 Family history of other specified conditions; Z71.51 Drug abuse counseling and surveillance of drug abuser; Z82.49 Family history of ischemic heart disease and other diseases of the circulatory system
CPT/HCPCS: 36415; 80048; 80076; 80307; 81003; 82040; 85025; 93005; 99283; J2060

== ENCOUNTER 2019-05-24 10:13 | Emergency (ER) | payer MEDICARE ==
[~2019-05-24] VITALS: Ht 177.8 cm; Wt 102.0 kg
[~2019-05-24 10:13] MED LIST changes: +DIVA-61 PO; +FLUO10CA14 PO; +LURA20TA PO; +METO25TA35 PO; +SUMA50TA3 PO
[2019-05-24 10:20] VITALS: BP 128/81
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
--- NOTE | 2019-05-24 10:38 | NUR ---
FIRST CONTACT WITH PT. PT C/O THROAT HURTS X2 DAYS, LOWER BACK X1 DAY, HEADACHE X1 DAY. PT'S AOX4. RESPS EVEN AND UNLABORED. PA AT BEDSIDE TO EVALUATE AT THIS TIME.
[2019-05-24] MEDS ORDERED: ACETAMINOPHEN 500 MG TABLET ONE (10:47)
--- NOTE | 2019-05-24 10:51 | NUR ---
PT MEDICATED PER EMAR. PT TOLERATED WELL.
[2019-05-24] MEDS ORDERED: ACETAMINOPHEN 500 MG TABLET PO ONE (11:00)
--- NOTE | 2019-05-24 11:45 | NUR ---
PT RESTING IN [facility]. RESPS EVEN AND UNLABORED.
--- NOTE | 2019-05-24 12:12 | NUR ---
Patient given discharge instructions and they have confirmed that they understand the instructions. Patient ambulatory with steady gait.
== END 2019-05-24 12:13 | disposition home or self-care (01) ==
LOC: ED 10:52
DX: B34.9 Viral infection, unspecified (principal); M54.5 Low back pain; R51 Headache; J02.9 Acute pharyngitis, unspecified; I10 Essential (primary) hypertension; E11.9 Type 2 diabetes mellitus without complications; M19.90 Unspecified osteoarthritis, unspecified site; F17.200 Nicotine dependence, unspecified, uncomplicated; F20.9 Schizophrenia, unspecified
CPT/HCPCS: 71045; 72110; 87081; 87880; 99284

== ENCOUNTER 2019-06-21 03:01 | Emergency (ER) | payer MEDICARE, MEDICAID ==
[~2019-06-21] VITALS: Ht 177.8 cm; Wt 105.9 kg
--- NOTE | 2019-06-21 03:07 | NUR ---
Patient BIB [facility] c/o "heart skipping and high BS. My neck was shrinking and getting tight around the veins." Patient states symptoms started tonight. Patient has a cough. Patient is in NAD. Respirations even and unlabored.
[2019-06-21 03:08] VITALS: BP 153/101
== END 2019-06-21 03:36 ==
LOC: ED 03:30
DX: R00.2 Palpitations (principal); F20.9 Schizophrenia, unspecified; I10 Essential (primary) hypertension; E11.9 Type 2 diabetes mellitus without complications; I47.1 Supraventricular tachycardia; F17.200 Nicotine dependence, unspecified, uncomplicated; G40.909 Epilepsy, unspecified, not intractable, without status epilepticus; R94.31 Abnormal electrocardiogram [ECG] [EKG]
CPT/HCPCS: 93005; 99283

== ENCOUNTER 2019-07-14 14:57 | Emergency (ER) | payer MEDICARE, MEDICAID ==
[~2019-07-14] VITALS: Ht 177.8 cm; Wt 100.0 kg
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
[2019-07-14 16:07] LABS: ALBUMIN 3.5 g/dL (3.4-5.0); ANION GAP 5 mmol/L (5-15); CALCIUM 8.2 mg/dL (8.5-10.1); CHLORIDE 109 mmol/L (98-107)
[2019-07-14 16:13] LABS: ALANINE AMINOTRANSFERASE 17 U/L (12-78); ALKALINE PHOSPHATASE 62 U/L (45-117); BILIRUBIN,TOTAL 0.3 mg/dL (0.2-1.0); CREATININE 0.93 mg/dL (0.7-1.3); TOTAL PROTEIN 7.4 g/dL (6.4-8.2); TROPONIN I < 0.015 ng/mL (0.000-0.045)
--- NOTE | 2019-07-14 16:19 | NUR ---
LATE ENTRY FROM 1509: PT UNABLE TO CLEARLY STATE REASON FOR CALLING EMS. DENIED CP. BREATHING RAPIDLY THROUGH HIS MOUTH. INSTRUCTED PT TO FOCUS ON CALMING HIS BREATHING - IN THROUGH NOSE, OUT THROUGH MOUTH. PT FOLLOWED INSTRUCTIONS, BRIEFLY. WAS ABLE TO BREATHE NORMALLY WHILE GETTING ORAL TEMPERATURE READING. LS CLEAR BILAT. NO COUGH NOTED. SKIN WNL.
[2019-07-14 16:36] LABS: BASOPHILS # (AUTO) 0.04 x10^3/uL (0-0.1); BASOPHILS % (AUTO) 1 % (0-1); EOSINOPHILS # (AUTO) 0.14 x10^3/uL (0-0.4); EOSINOPHILS % (AUTO) 2 % (1-7); LYMPHOCYTES # (AUTO) 2.31 x10^3/uL (1-3.4); LYMPHOCYTES % (AUTO) 33 % (22-44); MD NO; MEAN CORPUSCULAR HEMOGLOBIN 30.2 pg (27.5-34.5); MEAN CORPUSCULAR HGB CONC 33.9 g/dL (33.2-36.2); MEAN CORPUSCULAR VOLUME 89.1 fL (81-97); MEAN PLATELET VOLUME 7.6 fL (7.4-10.4); MONOCYTES # (AUTO) 0.37 x10^3/uL (0.2-0.8); MONOCYTES % (AUTO) 5 % (2-9); NEUTROPHILS # (AUTO) 4.07 x10^3/uL (1.8-6.8); NEUTROPHILS % (AUTO) 59 % (42-75); PLATELET COUNT 208 x10^3/uL (130-400); RED BLOOD COUNT 5.03 x10^6/uL (4.38-5.82); RED CELL DISTRIBUTION WIDTH 13.4 % (9.4-14.8)
--- NOTE | 2019-07-14 16:41 | NUR ---
PT LYING QUIETLY ON BED, RESP INCREASED AFTER THIS RN'S ARRIVAL. MONITORING CONTINUING: SINUS
--- NOTE | 2019-07-14 16:49 | NUR ---
PT REPORT TO CATARINO PATTERSON RN. PT CARE TRANSFERRED.
[2019-07-14 17:15] VITALS: BP 161/98
--- NOTE | 2019-07-14 17:30 | NUR ---
BREAK RN: Patient/Caregiver given discharge instructions and they have confirmed that they understand the instructions. Patient ambulatory with steady gait. PT PROVIDED TAXI VOUCHER HOME. RX FAXED TO [facility] PER PT REQUEST.
== END 2019-07-14 17:35 | disposition home or self-care (01) ==
LOC: ED 15:33
DX: J15.9 Unspecified bacterial pneumonia (principal); J98.4 Other disorders of lung; R07.9 Chest pain, unspecified; K21.9 Gastro-esophageal reflux disease without esophagitis; I10 Essential (primary) hypertension; E11.9 Type 2 diabetes mellitus without complications
CPT/HCPCS: 36415; 71045; 80053; 84484; 85025; 93005; 99285

== ENCOUNTER 2019-07-19 05:55 | Inpatient (IN) | payer MEDICAID, MEDICARE ==
[~2019-07-19] VITALS: Ht 177.8 cm; Wt 103.4 kg
[2019-07-19 08:00] VITALS: BP 126/91
[2019-07-19] MEDS ORDERED: POLYETHYLENE GLYCOL 17 GM PACKET PO PRN (09:00)
[2019-07-19] MEDS ORDERED: DOCUSATE 100 MG CAPSULE PO PRN (09:00)
[2019-07-19] MEDS ORDERED: PLEASE ENTER HEIGHT AND WEIGHT MC SCH (09:00)
[2019-07-19 10:27] VITALS: BP 126/91
[2019-07-19] MEDS ORDERED: PALIPERIDONE PALMITATE 156 MG/ML IM ONE (13:00)
[2019-07-19 14:11] LABS: BASOPHILS # (AUTO) 0.03 x10^3/uL (0-0.1); BASOPHILS % (AUTO) 0 % (0-1); EOSINOPHILS # (AUTO) 0.11 x10^3/uL (0-0.4); EOSINOPHILS % (AUTO) 2 % (1-7); LYMPHOCYTES # (AUTO) 1.86 x10^3/uL (1-3.4); LYMPHOCYTES % (AUTO) 27 % (22-44); MD NO; MEAN CORPUSCULAR HEMOGLOBIN 30.7 pg (27.5-34.5); MEAN CORPUSCULAR VOLUME 90.3 fL (81-97); MEAN PLATELET VOLUME 6.9 fL (7.4-10.4); MONOCYTES # (AUTO) 0.46 x10^3/uL (0.2-0.8); MONOCYTES % (AUTO) 7 % (2-9); NEUTROPHILS # (AUTO) 4.56 x10^3/uL (1.8-6.8); NEUTROPHILS % (AUTO) 65 % (42-75); PLATELET COUNT 188 x10^3/uL (130-400); RED CELL DISTRIBUTION WIDTH 13.5 % (9.4-14.8)
[2019-07-19 14:24] LABS: ALANINE AMINOTRANSFERASE 25 U/L (12-78); ALBUMIN 3.5 g/dL (3.4-5.0); ANION GAP 6 mmol/L (5-15); CALCIUM 8.5 mg/dL (8.5-10.1); CHLORIDE 106 mmol/L (98-107); CREATININE 0.82 mg/dL (0.7-1.3)
[2019-07-19 14:32] LABS: ALKALINE PHOSPHATASE 55 U/L (45-117); BILIRUBIN,TOTAL 0.3 mg/dL (0.2-1.0); CHOL/HDL RATIO 7.8; CHOLESTEROL, TOTAL 226 mg/dL (140-239); FREE T4 (FREE THYROXINE) 1.16 ng/dL (0.76-1.46); HDL CHOL % 13 % (26-37); HDL CHOLESTEROL (DIRECT) 29 mg/dL (40-60); TOTAL PROTEIN 7.1 g/dL (6.4-8.2); TRIGLYCERIDES 619 mg/dL (50-200)
[2019-07-19] MEDS: HYDROXYZINE PAMOATE 50MG CAP PO PRN (18:40)
[2019-07-19] MEDS: ACETAMINOPHEN 325 MG TABLET PO PRN (18:40)
[2019-07-19 19:48] VITALS: BP 125/76
[2019-07-19] MEDS: BENZTROPINE 1 MG TABLET PO SCH (20:24)
[2019-07-19] MEDS: MELATONIN 3 MG TABLET PO SCH (20:24)
[2019-07-19] MEDS: PALIPERIDONE 6 MG TAB.ER.24 PO SCH (20:24)
[2019-07-19] MEDS: ATORVASTATIN 40 MG TABLET PO SCH (20:24)
[2019-07-19] MEDS: DIVALPROEX 250 MG TAB.ER.24H PO SCH (20:24)
[2019-07-20] MEDS: ASPIRIN 81 MG TABLET EC PO SCH (05:26)
[2019-07-20 07:33] VITALS: BP 115/75
[2019-07-20] MEDS: DIVALPROEX 250 MG TAB.ER.24H PO SCH ×2 (08:24→19:28)
[2019-07-20] MEDS: BENZTROPINE 1 MG TABLET PO SCH ×2 (08:24→19:28)
[2019-07-20] MEDS: HYDROXYZINE PAMOATE 50MG CAP PO PRN (12:45)
[2019-07-20] MEDS: ACETAMINOPHEN 325 MG TABLET PO PRN (19:26)
[2019-07-20] MEDS: PALIPERIDONE 6 MG TAB.ER.24 PO SCH (19:28)
[2019-07-20] MEDS: MELATONIN 3 MG TABLET PO SCH (19:28)
[2019-07-20] MEDS: ATORVASTATIN 40 MG TABLET PO SCH (19:28)
[2019-07-20 19:43] VITALS: BP 133/88
[2019-07-21] MEDS: HYDROXYZINE PAMOATE 50MG CAP PO PRN ×2 (01:35→22:49)
[2019-07-21] MEDS: NICOTINE GUM 2 MG BC PRN ×2 (05:13→21:53)
[2019-07-21] MEDS: ASPIRIN 81 MG TABLET EC PO SCH (05:13)
[2019-07-21 07:43] VITALS: BP 124/79
[2019-07-21] MEDS: BENZTROPINE 1 MG TABLET PO SCH ×2 (08:57→21:02)
[2019-07-21] MEDS: DIVALPROEX 250 MG TAB.ER.24H PO SCH ×2 (08:57→21:02)
[2019-07-21 19:15] VITALS: BP 144/87
[2019-07-21] MEDS: PALIPERIDONE 6 MG TAB.ER.24 PO SCH (21:01)
[2019-07-21] MEDS: ATORVASTATIN 40 MG TABLET PO SCH (21:02)
[2019-07-21] MEDS: MELATONIN 3 MG TABLET PO SCH (21:02)
[2019-07-22] MEDS: ASPIRIN 81 MG TABLET EC PO SCH (06:08)
[2019-07-22 07:36] VITALS: BP 134/81
[2019-07-22] MEDS: BENZTROPINE 1 MG TABLET PO SCH ×2 (08:35→20:27)
[2019-07-22] MEDS: DIVALPROEX 250 MG TAB.ER.24H PO SCH ×2 (08:35→20:27)
[2019-07-22] MEDS: ACETAMINOPHEN 325 MG TABLET PO PRN (15:22)
[2019-07-22] MEDS: NICOTINE GUM 2 MG BC PRN (18:12)
[2019-07-22 19:04] VITALS: BP 145/97
[2019-07-22] MEDS: MELATONIN 3 MG TABLET PO PRN (20:26)
[2019-07-22] MEDS: ATORVASTATIN 40 MG TABLET PO SCH (20:27)
[2019-07-22] MEDS: QUETIAPINE 100MG TABLET PO SCH (20:27)
[2019-07-22] MEDS: PALIPERIDONE 6 MG TAB.ER.24 PO SCH (20:28)
[2019-07-23] MEDS: ASPIRIN 81 MG TABLET EC PO SCH (06:00)
[2019-07-23] MEDS: HYDROXYZINE PAMOATE 50MG CAP PO PRN ×2 (06:42→15:40)
[2019-07-23 07:27] VITALS: BP 127/77
[2019-07-23] MEDS: DIVALPROEX 250 MG TAB.ER.24H PO SCH ×2 (08:54→20:41)
[2019-07-23] MEDS: BENZTROPINE 1 MG TABLET PO SCH ×2 (08:54→20:41)
[2019-07-23 19:04] VITALS: BP 168/85
[2019-07-23] MEDS: MELATONIN 3 MG TABLET PO PRN (20:41)
[2019-07-23] MEDS: QUETIAPINE 100MG TABLET PO SCH (20:41)
[2019-07-23] MEDS: ATORVASTATIN 40 MG TABLET PO SCH (20:41)
[2019-07-23] MEDS: PALIPERIDONE 6 MG TAB.ER.24 PO SCH (20:41)
[2019-07-24] MEDS: ACETAMINOPHEN 325 MG TABLET PO PRN ×2 (05:11→09:14)
[2019-07-24] MEDS: HYDROXYZINE PAMOATE 50MG CAP PO PRN (05:11)
[2019-07-24] MEDS: NICOTINE GUM 2 MG BC PRN (05:19)
[2019-07-24] MEDS: ASPIRIN 81 MG TABLET EC PO SCH (05:58)
[2019-07-24 07:46] VITALS: BP 124/79
[2019-07-24] MEDS: DIVALPROEX 250 MG TAB.ER.24H PO SCH ×2 (09:09→20:35)
[2019-07-24] MEDS: BENZTROPINE 1 MG TABLET PO SCH ×2 (09:10→20:35)
[2019-07-24 19:58] VITALS: BP 148/97
[2019-07-24] MEDS: PALIPERIDONE 6 MG TAB.ER.24 PO SCH (20:35)
[2019-07-24] MEDS: ATORVASTATIN 40 MG TABLET PO SCH (20:35)
[2019-07-24] MEDS: QUETIAPINE 100MG TABLET PO SCH (20:35)
[2019-07-25] MEDS: ASPIRIN 81 MG TABLET EC PO SCH (05:38)
[2019-07-25 07:36] VITALS: BP 133/85
[2019-07-25] MEDS: DIVALPROEX 250 MG TAB.ER.24H PO SCH ×2 (08:16→20:42)
[2019-07-25] MEDS: BENZTROPINE 1 MG TABLET PO SCH ×2 (08:16→20:42)
[2019-07-25] MEDS: ACETAMINOPHEN 325 MG TABLET PO PRN (13:57)
[2019-07-25] MEDS: HYDROXYZINE PAMOATE 50MG CAP PO PRN (16:33)
[2019-07-25 19:15] VITALS: BP 135/71
[2019-07-25] MEDS: QUETIAPINE 100MG TABLET PO SCH (20:42)
[2019-07-25] MEDS: MELATONIN 3 MG TABLET PO PRN (20:42)
[2019-07-25] MEDS: PALIPERIDONE 6 MG TAB.ER.24 PO SCH (20:42)
[2019-07-25] MEDS: ATORVASTATIN 40 MG TABLET PO SCH (20:42)
[2019-07-26] MEDS: ASPIRIN 81 MG TABLET EC PO SCH (05:07)
[2019-07-26 07:00] VITALS: BP 112/71
[2019-07-26] MEDS: DIVALPROEX 250 MG TAB.ER.24H PO SCH ×2 (08:44→19:18)
[2019-07-26] MEDS: BENZTROPINE 1 MG TABLET PO SCH ×2 (08:44→19:18)
[2019-07-26] MEDS: NICOTINE GUM 2 MG BC PRN ×2 (09:33→16:31)
[2019-07-26] MEDS ORDERED: PALIPERIDONE PALMITATE 156 MG/ML IM ONE (13:30)
[2019-07-26 19:15] VITALS: BP 142/88
[2019-07-26] MEDS: ATORVASTATIN 40 MG TABLET PO SCH (19:18)
[2019-07-26] MEDS: PALIPERIDONE 6 MG TAB.ER.24 PO SCH (19:18)
[2019-07-26] MEDS: QUETIAPINE 100MG TABLET PO SCH (19:18)
[2019-07-26] MEDS: ACETAMINOPHEN 325 MG TABLET PO PRN (19:18)
[2019-07-26] MEDS: HYDROXYZINE PAMOATE 50MG CAP PO PRN (22:25)
[2019-07-26] MEDS: MELATONIN 3 MG TABLET PO PRN (22:26)
[2019-07-27] MEDS: ACETAMINOPHEN 325 MG TABLET PO PRN ×3 (03:08→20:21)
[2019-07-27] MEDS: ASPIRIN 81 MG TABLET EC PO SCH (05:57)
[2019-07-27 07:36] VITALS: BP 134/87
[2019-07-27] MEDS: BENZTROPINE 1 MG TABLET PO SCH ×2 (08:47→20:21)
[2019-07-27] MEDS: DIVALPROEX 250 MG TAB.ER.24H PO SCH ×2 (08:48→20:21)
[2019-07-27] MEDS: NICOTINE GUM 2 MG BC PRN ×2 (09:25→13:35)
[2019-07-27] MEDS: HYDROXYZINE PAMOATE 50MG CAP PO PRN (14:24)
[2019-07-27 19:15] VITALS: BP 131/74
[2019-07-27] MEDS: MELATONIN 3 MG TABLET PO PRN (20:21)
[2019-07-27] MEDS: ATORVASTATIN 40 MG TABLET PO SCH (20:21)
[2019-07-27] MEDS: QUETIAPINE 100MG TABLET PO SCH (20:21)
[2019-07-27] MEDS: PALIPERIDONE 6 MG TAB.ER.24 PO SCH (20:21)
[2019-07-28] MEDS: ASPIRIN 81 MG TABLET EC PO SCH (05:46)
[2019-07-28] MEDS: ACETAMINOPHEN 325 MG TABLET PO PRN ×2 (06:15→12:52)
[2019-07-28] MEDS: HYDROXYZINE PAMOATE 50MG CAP PO PRN (06:28)
[2019-07-28 07:34] VITALS: BP 146/78
[2019-07-28] MEDS: BENZTROPINE 1 MG TABLET PO SCH ×2 (08:29→20:19)
[2019-07-28] MEDS: DIVALPROEX 250 MG TAB.ER.24H PO SCH ×2 (08:29→20:19)
[2019-07-28] MEDS: NICOTINE GUM 2 MG BC PRN (10:56)
[2019-07-28 19:44] VITALS: BP 146/95
[2019-07-28] MEDS: ATORVASTATIN 40 MG TABLET PO SCH (20:19)
[2019-07-28] MEDS: PALIPERIDONE 6 MG TAB.ER.24 PO SCH (20:19)
[2019-07-28] MEDS: QUETIAPINE 100MG TABLET PO SCH (20:19)
[2019-07-28] MEDS ORDERED: CALCIUM CARBONATE 500 MG TAB.CHEW ONE (22:47)
[2019-07-29] MEDS: ASPIRIN 81 MG TABLET EC PO SCH (05:50)
[2019-07-29] MEDS: NICOTINE GUM 2 MG BC PRN (06:12)
[2019-07-29 07:32] VITALS: BP 122/87
[2019-07-29] MEDS: DIVALPROEX 250 MG TAB.ER.24H PO SCH (08:20)
[2019-07-29] MEDS: HYDROXYZINE PAMOATE 50MG CAP PO PRN (08:20)
[2019-07-29] MEDS: BENZTROPINE 1 MG TABLET PO SCH (08:21)
[2019-07-29] MEDS ORDERED: DIVA250T PO (12:52)
[2019-07-29] MEDS ORDERED: HYDR50CA2 PO (12:52)
[2019-07-29] MEDS ORDERED: ATOR40TA78 PO (12:52)
[2019-07-29] MEDS ORDERED: ASPI81TA45 PO (12:52)
[2019-07-29] MEDS ORDERED: PALI6TAB5 PO (12:52)
[2019-07-29] MEDS ORDERED: QUET100T PO (12:52)
[2019-07-29] MEDS ORDERED: MELA3TAB31 PO (12:52)
[2019-07-29] MEDS ORDERED: BENZ1TAB61 PO (12:52)
== END 2019-07-29 13:20 | disposition home or self-care (01) | DRG 885 ==
LOC: 3E 08:21
PROVIDERS: ADMIT Psychiatry & Neurology Psychosomatic Medicine; ATTEND Psychiatry & Neurology Psychosomatic Medicine
DX: F20.0 Paranoid schizophrenia (principal); F11.20 Opioid dependence, uncomplicated; B19.20 Unspecified viral hepatitis C without hepatic coma; E78.5 Hyperlipidemia, unspecified; F15.21 Other stimulant dependence, in remission; G43.909 Migraine, unspecified, not intractable, without status migrainosus; G47.00 Insomnia, unspecified; I25.10 Atherosclerotic heart disease of native coronary artery without angina pectoris; E66.9 Obesity, unspecified; F17.210 Nicotine dependence, cigarettes, uncomplicated; J45.909 Unspecified asthma, uncomplicated; E78.1 Pure hyperglyceridemia; Z79.82 Long term (current) use of aspirin; Z79.899 Other long term (current) drug therapy; Z91.19 Patient's noncompliance with other medical treatment and regimen; Z88.1 Allergy status to other antibiotic agents; Z88.8 Allergy status to other drugs, medicaments and biological substances; Z56.0 Unemployment, unspecified; Z80.9 Family history of malignant neoplasm, unspecified; Z82.49 Family history of ischemic heart disease and other diseases of the circulatory system; Z82.0 Family history of epilepsy and other diseases of the nervous system; Z91.041 Radiographic dye allergy status; Z88.5 Allergy status to narcotic agent
CPT/HCPCS: 36415; 80053; 80061; 84439; 84443; 85025; J2426

== ENCOUNTER 2019-08-07 14:26 | Emergency (ER) | payer MEDICARE ==
[~2019-08-07] VITALS: Ht 177.8 cm; Wt 106.0 kg
[~2019-08-07 14:26] MED LIST changes: +ATOR40TA78 PO; +BENZ1TAB61 PO; +DIVA250T PO; +MELA3TAB31 PO; +PALI6TAB5 PO
[2019-08-07 14:30] VITALS: BP 137/80
[2019-08-07 15:47] LABS: BASOPHILS # (AUTO) 0.03 x10^3/uL (0-0.1); BASOPHILS % (AUTO) 1 % (0-1); EOSINOPHILS # (AUTO) 0.13 x10^3/uL (0-0.4); EOSINOPHILS % (AUTO) 2 % (1-7); LYMPHOCYTES # (AUTO) 1.95 x10^3/uL (1-3.4); LYMPHOCYTES % (AUTO) 29 % (22-44); MD NO; MEAN CORPUSCULAR HEMOGLOBIN 30.5 pg (27.5-34.5); MEAN CORPUSCULAR HGB CONC 33.6 g/dL (33.2-36.2); MEAN CORPUSCULAR VOLUME 90.6 fL (81-97); MEAN PLATELET VOLUME 6.8 fL (7.4-10.4); MONOCYTES # (AUTO) 0.42 x10^3/uL (0.2-0.8); MONOCYTES % (AUTO) 6 % (2-9); NEUTROPHILS # (AUTO) 4.13 x10^3/uL (1.8-6.8); NEUTROPHILS % (AUTO) 62 % (42-75); PLATELET COUNT 238 x10^3/uL (130-400); RED BLOOD COUNT 5.19 x10^6/uL (4.38-5.82); RED CELL DISTRIBUTION WIDTH 14.1 % (9.4-14.8)
[2019-08-07 15:57] LABS: ALBUMIN 3.9 g/dL (3.4-5.0); ANION GAP 6 mmol/L (5-15); CALCIUM 8.4 mg/dL (8.5-10.1); CHLORIDE 107 mmol/L (98-107); CREATININE 0.79 mg/dL (0.7-1.3)
--- NOTE | 2019-08-07 16:16 | NUR ---
ALL RESULTS ARE BACK AT THIS TIME. CHART UP FOR RECHECK.
== END 2019-08-07 16:28 | disposition home or self-care (01) ==
LOC: ED 14:54
DX: R06.00 Dyspnea, unspecified (principal); R53.1 Weakness; R53.83 Other fatigue; R07.9 Chest pain, unspecified; I10 Essential (primary) hypertension; E11.9 Type 2 diabetes mellitus without complications; G40.909 Epilepsy, unspecified, not intractable, without status epilepticus; G43.909 Migraine, unspecified, not intractable, without status migrainosus; F17.200 Nicotine dependence, unspecified, uncomplicated
CPT/HCPCS: 36415; 71045; 80048; 82040; 85025; 99284

== ENCOUNTER 2019-10-06 15:18 | Emergency (ER) | payer MEDICARE, MEDICAID ==
[~2019-10-06] VITALS: Ht 177.8 cm; Wt 100.0 kg
[2019-10-06 15:18] VITALS: BP 157/109
--- NOTE | 2019-10-06 15:18 | NUR ---
JAE FROM HOME C/O SI ("FEELING DOWN", NO PLAN) SINCE METH USE "FOR THE FIST TIME" 2 DAYS AGO, HX SAME, NO INTERVENTIONS SPRUE CUTTING PRESS OPERATOR PER EMS; PT CHANGED INTO GOWN, SITTING ON EDGE OF GURNEY AWAKE, CALM & COOPERATIVE, RESPONDS APPROP TO STAFF, NAD, COMFORT MEASURES PROVIDED, SECURITY POTTER DOWN, SITTER IN VIEW, PT CLOTHES & SHOES PLACED IN BAG X1 & PUT IN LOCKER BIN#2.
--- NOTE | 2019-10-06 16:00 | NUR ---
PT LAYING ON GURNEY AWAKE, CALM & COOPERATIVE, RESPONDS APPROP TO STAFF, NAD, COMFORT MEASURES PROVIDED, PT REMAINS IN SAFE ENVIRONMENT, SITTER IN VIEW.
[2019-10-06 16:26] LABS: AMPHETAMINE SCREEN, URINE Positive (Negative); BARBITURATE SCREEN, URINE Negative (Negative); BENZODIAZEPINE SCREEN, URINE Negative (Negative); CANNABINOID SCREEN, URINE Positive (Negative); COCAINE SCREEN, URINE Negative (Negative); METHADONE SCREEN, URINE Negative (Negative); OPIATE SCREEN, URINE Negative (Negative)
[2019-10-06] MEDS ORDERED: HYDROXYZINE PAMOATE 50MG CAP PO PRN (16:30)
[2019-10-06] MEDS ORDERED: QUETIAPINE 25MG TABLET PO SCH (16:30)
[2019-10-06] MEDS ORDERED: PLEASE ENTER HEIGHT AND WEIGHT MC SCH (16:30)
[2019-10-06] MEDS ORDERED: SERTRALINE 50MG TABLET ONE ×2 (16:32)
[2019-10-06 16:33] LABS: BASOPHILS # (AUTO) 0.03 x10^3/uL (0-0.1); BASOPHILS % (AUTO) 0 % (0-1); EOSINOPHILS # (AUTO) 0.15 x10^3/uL (0-0.4); EOSINOPHILS % (AUTO) 2 % (1-7); LYMPHOCYTES # (AUTO) 2.23 x10^3/uL (1-3.4); LYMPHOCYTES % (AUTO) 29 % (22-44); MD NO; MEAN CORPUSCULAR HEMOGLOBIN 30.6 pg (27.5-34.5); MEAN CORPUSCULAR HGB CONC 34.2 g/dL (33.2-36.2); MEAN CORPUSCULAR VOLUME 89.5 fL (81-97); MEAN PLATELET VOLUME 7.1 fL (7.4-10.4); MONOCYTES # (AUTO) 0.46 x10^3/uL (0.2-0.8); MONOCYTES % (AUTO) 6 % (2-9); NEUTROPHILS # (AUTO) 4.96 x10^3/uL (1.8-6.8); NEUTROPHILS % (AUTO) 63 % (42-75); PLATELET COUNT 228 x10^3/uL (130-400); RED BLOOD COUNT 5.36 x10^6/uL (4.38-5.82); RED CELL DISTRIBUTION WIDTH 13.5 % (9.4-14.8)
[2019-10-06 16:41] LABS: ALBUMIN 4.1 g/dL (3.4-5.0); ANION GAP 9 mmol/L (5-15); CALCIUM 8.3 mg/dL (8.5-10.1); CHLORIDE 109 mmol/L (98-107); CREATININE 0.85 mg/dL (0.7-1.3); SALICYLATE LEVEL 3.2 mg/dL (2.8-20.0)
--- NOTE | 2019-10-06 17:02 | NUR ---
PT CONTINUES LAYING ON GURNEY AWAKE, CALM & COOPERATIVE, RESPONDS APPROP TO STAFF, NAD, NO NEEDS AT THIS TIME, PT REMAINS IN SAFE ENVIRONMENT, SITTER IN VIEW.
--- NOTE | 2019-10-06 17:16 | NUR ---
THROUGHPUT RN: JACKELIN CALLED, SPOKE WITH ELLEN. DR. GUPTA ACCEPTING PT AT THIS TIME. ROOM 377 ASSIGNED. Addendum: 10/06/19 at 1729 by ANTONIA THROUGHPUT RN: JACKELIN CALLED, SPOKE WITH ELLEN. DR. GUPTA ACCEPTING PT AT THIS TIME. ROOM 387 ASSIGNED.
--- NOTE | 2019-10-06 17:53 | NUR ---
Patient given discharge instructions and they have confirmed that they understand the instructions. Patient transferred to U via WC with all personal belongings.
--- NOTE | 2019-10-06 18:04 | NUR ---
PT LAYING ON GURNEY AWAKE, CALM & COOPERATIVE, RESPONDS APPROP TO STAFF, NAD, DINNER TRAY GIVEN- NO OTHER NEEDS AT THIS TIME, PT REMAINS IN SAFE ENVIRONMENT, SITTER IN VIEW.
[2019-10-06] MEDS ORDERED: RISP2TAB35 PO (18:14)
[2019-10-06] MEDS ORDERED: TOPI25TA52 PO (18:15)
[2019-10-06] MEDS ORDERED: SERT-237 PO (18:15)
[2019-10-06] MEDS ORDERED: OLAN10TA9 PO (18:15)
[2019-10-06] MEDS ORDERED: TRAZ-96 PO (18:15)
--- NOTE | 2019-10-06 18:55 | NUR ---
REPORT GIVEN TO MAHAMED CHOW AWAITING TRANSPORT TO [facility].
[2019-10-06] MEDS ORDERED: QUETIAPINE 100MG TABLET PO SCH (21:00)
[2019-10-06] MEDS ORDERED: BENZTROPINE 1 MG TABLET PO SCH (21:00)
== END 2019-10-06 19:09 ==
LOC: ED 19:00
DX: F23 Brief psychotic disorder (principal); F15.10 Other stimulant abuse, uncomplicated; I10 Essential (primary) hypertension; G89.29 Other chronic pain; E11.9 Type 2 diabetes mellitus without complications; K21.9 Gastro-esophageal reflux disease without esophagitis; G40.909 Epilepsy, unspecified, not intractable, without status epilepticus; F17.200 Nicotine dependence, unspecified, uncomplicated
CPT/HCPCS: 36415; 80048; 80307; 82040; 85025; 99285

== ENCOUNTER 2019-12-04 08:08 | Emergency (ER) | payer MEDICARE, MEDICAID ==
[~2019-12-04] VITALS: Ht 177.8 cm; Wt 113.0 kg
[~2019-12-04 08:08] MED LIST changes: -PANT40TA5 PO; +PANT40TA6 PO; +RISP2TAB35 PO; +SERT-237 PO; +SERT50TA28 PO; +TOPI25TA32 PO; +TOPI25TA52 PO; +TRAZ-96 PO; +TRAZ50TA66 PO
--- NOTE | 2019-12-04 08:14 | NUR ---
PT BIB [facility] WITH C/O SI, NO PLAN. PT WITH HX OF SI, BIPOLAR, SCHIZ. PT HAVING AUD HALLUCINATIONS THAT ARE MAKING THE PT "NOT FEEL SAFE" PT TO SECURE RM AT THIS TIME, ALL BELONGINGS REMOVED FOR SAFE KEEPING IN LOCKER. 1 BAG SHOES AND PT BELONGING BAG WITH CLOTHING. GLOVE TURNER AND FORMER MADE AWARE OF NEED FOR SITTER. ERP IN TO EVAL PT AT THIS TIME
--- NOTE | 2019-12-04 08:15 | NUR ---
ELECTION CLERK: YASMANI REQUESTED FROM NURSING OPS/HOUSE SUP AT THIS TIME
--- NOTE | 2019-12-04 08:25 | NUR ---
ASSUMED CARE OF PT. PT UP TO BATHRROM TO PROVIDE URINE SAMPLE. BACK TO ROOM, WARM BLANKET PROVIDED, SUPINE WITH EYES CLOSED ON GURNEY. SAFETY GATE DOWN, FREQUENT MONITORING OF PT. PT DENIES ANY ADDITIONAL NEEDS AT THIS TIME. AWAITING STUD BEEF CATTLE FARMER.
[2019-12-04 08:48] LABS: MICROSCOPIC NOT IND
[2019-12-04 09:00] LABS: AMPHETAMINE SCREEN, URINE Negative (Negative); BARBITURATE SCREEN, URINE Negative (Negative); BENZODIAZEPINE SCREEN, URINE Negative (Negative); CANNABINOID SCREEN, URINE Negative (Negative); COCAINE SCREEN, URINE Negative (Negative); METHADONE SCREEN, URINE Negative (Negative); OPIATE SCREEN, URINE Negative (Negative)
--- NOTE | 2019-12-04 09:03 | NUR ---
SITTER AT BEDSIDE. PT SUPINE ON GURNEY WITH EYES CLOSED, NAD. SAFETY POTTER DOWN AND SUICIDE PRECAUTIONS IN PLACE. PT DENIES ANY NEEDS AT THIS TIME. WILL CONTINUE TO MONITOR.
[2019-12-04 09:17] LABS: BASOPHILS # (AUTO) 0.04 x10^3/uL (0-0.1); BASOPHILS % (AUTO) 1 % (0-1); EOSINOPHILS # (AUTO) 0.17 x10^3/uL (0-0.4); EOSINOPHILS % (AUTO) 3 % (1-7); LYMPHOCYTES # (AUTO) 2.07 x10^3/uL (1-3.4); LYMPHOCYTES % (AUTO) 30 % (22-44); MD NO; MEAN CORPUSCULAR HEMOGLOBIN 30.9 pg (27.5-34.5); MEAN CORPUSCULAR HGB CONC 33.6 g/dL (33.2-36.2); MEAN PLATELET VOLUME 7.1 fL (7.4-10.4); MONOCYTES # (AUTO) 0.34 x10^3/uL (0.2-0.8); MONOCYTES % (AUTO) 5 % (2-9); NEUTROPHILS % (AUTO) 62 % (42-75); PLATELET COUNT 226 x10^3/uL (130-400); RED BLOOD COUNT 5.01 x10^6/uL (4.38-5.82); RED CELL DISTRIBUTION WIDTH 14.4 % (9.4-14.8)
[2019-12-04 09:29] LABS: ALANINE AMINOTRANSFERASE 30 U/L (12-78); ALBUMIN 3.8 g/dL (3.4-5.0); ANION GAP 4 mmol/L (5-15); CALCIUM 9.2 mg/dL (8.5-10.1); CHLORIDE 109 mmol/L (98-107); CREATININE 0.74 mg/dL (0.7-1.3)
[2019-12-04 09:34] LABS: ALKALINE PHOSPHATASE 73 U/L (45-117); BILIRUBIN,TOTAL 0.3 mg/dL (0.2-1.0); SALICYLATE LEVEL 3.4 mg/dL (2.8-20.0); TOTAL PROTEIN 7.5 g/dL (6.4-8.2)
--- NOTE | 2019-12-04 10:02 | NUR ---
PT SUPINE ON GURNEY, EYES CLOSED AND CALMLY RESTING. NAD. SITTER WITHIN VIEW. SAFETY POTTER DOWN, SUICIDE PRECAUTIONS IN PLACE. PT DENIES NEEDS FOR ERESTROOM AT THIS TIME. NO ADDITIONAL NEEDS. WILL CONTINUE TO MONITOR.
--- NOTE | 2019-12-04 13:00 | NUR ---
BREAK RN NOTE: PT SLEEPING ON GURNEY, RESPS EVEN AND UNLABORED. ROOM SECURE. SITTER MONITORING FROM [facility] FOR SAFETY. PT PROVIDED WITH SI MEAL TRAY FOR LUNCH. PT HAS NO COMPLAINT AT THIS TIME, CALM AND COOPERATIVE.
--- NOTE | 2019-12-04 13:02 | NUR ---
HOSPITAL BED REQUESTED FROM PILL MACHINE OPERATOR.
--- NOTE | 2019-12-04 14:10 | NUR ---
PSYCH YEAST DISTILLER SILVANO AT BEDSIDE, PT CALM AND COOPERATIVE. PT DENIES ANY NEEDS AT THIS TIME. SAFETY GATE IN PLACE, SITTER IN VIEW.
--- NOTE | 2019-12-04 15:10 | NUR ---
PT REMAINS CALM ON GURNEY, AWAITING ROOM ASSIGNMENT AT [facility]. PT DENIES ANY NEEDS AT THIS TIME. SITTER WITHIN VIEW, SAFETY POTTER DOWN.
--- NOTE | 2019-12-04 15:56 | NUR ---
PT SLEEPING ON GURNEY. SAFETY POTTER IN PLACE, SITTER IN VIEW. PT DOES NOT HAVE ANY NEEDS AT THIS TIME, WILL CONTINUE TO MONITOR.
--- NOTE | 2019-12-04 17:02 | NUR ---
PT LAYING ON BED WITH EYES CLOSED, DOZES OFF BUT RESPONDS APPROP TO STAFF, NAD, NO NEEDS A THIS TIME, PT REMAINS IN SAFE ENVIRONMENT, SITTER IN VIEW.
--- NOTE | 2019-12-04 18:00 | NUR ---
PT SITTING UP ON BED EATING DINNER, ABLE TO DOZE OFF & RESPONDS APPROP TO STAFF, NAD, COMFORT MEASURES PROVIDED, PT REMAINS IN SAFE ENVIRONMENT, SITTER IN VIEW.
--- NOTE | 2019-12-04 18:05 | NUR ---
PACKET FAXED TO [facility], [facility] AND [facility]
[2019-12-04] MEDS ORDERED: OLANZAPINE 10 MG TABLET PO SCH (18:45)
--- NOTE | 2019-12-04 18:56 | NUR ---
BEDSIDE REPORT GIVEN TO AGUSTINA WATERS.
[2019-12-04] MEDS ORDERED: BENZTROPINE 1 MG TABLET ONE (20:05)
[2019-12-04] MEDS ORDERED: OLANZAPINE 10 MG TABLET ONE (20:05)
[2019-12-04 20:56] VITALS: BP 138/74
--- NOTE | 2019-12-04 20:57 | NUR ---
PT RESTING IN BED, PT ED ROOM SI SECURE WITH SITTER AT PT DOOR. PT DDENIED ANY WANTS OR NEEDS AT THIS TIME
[2019-12-04] MEDS ORDERED: BENZTROPINE 1 MG TABLET PO SCH (21:00)
[2019-12-04] MEDS ORDERED: TOPIRAMATE 25 MG TABLET PO SCH (21:00)
--- NOTE | 2019-12-04 22:42 | NUR ---
RN GOT CALLED FROM KIMMIE FROM [facility] SAY DR PEREZ WOULD EXEPT PT A PATIENT THERE
--- NOTE | 2019-12-05 04:03 | NUR ---
PT RESTING IN BED, PT ED ROOM SI SECURE WITH SITTER AT PT DOOR. PT DDENIED ANY WANTS OR NEEDS AT THIS TIME
[2019-12-05] MEDS ORDERED: SERTRALINE 50MG TABLET PO SCH (09:00)
== END 2019-12-05 04:41 ==
LOC: ED 08:55
DX: R45.851 Suicidal ideations (principal); F33.3 Major depressive disorder, recurrent, severe with psychotic symptoms; Z88.0 Allergy status to penicillin; Z88.8 Allergy status to other drugs, medicaments and biological substances
CPT/HCPCS: 36415; 80053; 80307; 81003; 85025; 99285

== ENCOUNTER 2020-01-13 18:27 | Emergency (ER) | payer MEDICAID, MEDICARE, OTHER ==
[~2020-01-13] VITALS: Ht 170.2 cm; Wt 109.0 kg
[~2020-01-13 18:27] MED LIST changes: -FLUO10CA14 PO; +FLUO10CA15 PO
[2020-01-13 18:57] LABS: BASOPHILS % (AUTO) 1 % (0-1); EOSINOPHILS % (AUTO) 2 % (1-7); LYMPHOCYTES % (AUTO) 24 % (22-44); MEAN CORPUSCULAR HEMOGLOBIN 30.4 pg (27.5-34.5); MEAN CORPUSCULAR HGB CONC 33.5 g/dL (33.2-36.2); MEAN PLATELET VOLUME 6.7 fL (7.4-10.4); MONOCYTES % (AUTO) 7 % (2-9); NEUTROPHILS % (AUTO) 65 % (42-75); PLATELET COUNT 214 x10^3/uL (130-400); RED BLOOD COUNT 4.82 x10^6/uL (4.38-5.82); RED CELL DISTRIBUTION WIDTH 13.9 % (9.4-14.8)
[2020-01-13 19:01] LABS: MD NO
[2020-01-13 19:10] LABS: ALBUMIN 3.8 g/dL (3.4-5.0); ANION GAP 5 mmol/L (5-15); CALCIUM 8.4 mg/dL (8.5-10.1); CHLORIDE 110 mmol/L (98-107)
[2020-01-13 19:14] LABS: ALANINE AMINOTRANSFERASE 39 U/L (12-78); ALKALINE PHOSPHATASE 91 U/L (45-117); BILIRUBIN,TOTAL 0.3 mg/dL (0.2-1.0); CREATININE 0.84 mg/dL (0.7-1.3); TOTAL PROTEIN 7.4 g/dL (6.4-8.2)
--- NOTE | 2020-01-13 20:49 | NUR ---
SAMPLE EXAMINER: PT. TO ROOM FROM LOBBY AT THIS TIME.
--- NOTE | 2020-01-13 21:03 | NUR ---
PT CAME INTO ED TONIGHT WITH REPORTS OF LOW BACK PAIN THAT RADIATES FROM LEFT HIP AROUND TO BACK, STATES IT STARTED FROM LIFTING HEAVY BOXES AT WORK. PT DENIES ANY LIMIT IN RANGE OF MOTION, WALKS WITH A SMOOTH STEADY GAIT, CHANGED INTO GOWN, PROVIDED URINAL FOR URINE SAMPLE, GIVEN WARM BLANKETS FOR COMFORT, NAD, CALL LIGHT ON LAP, DENIES ADDITIONAL NEEDS, WCTM.
[2020-01-13] MEDS ORDERED: DIAZEPAM 5 MG TABLET PO ONE (22:00)
[2020-01-13] MEDS ORDERED: IBUPROFEN 600 MG TABLET PO ONE (22:00)
[2020-01-13] MEDS ORDERED: DIAZEPAM 5 MG TABLET ONE (22:03)
[2020-01-13] MEDS ORDERED: IBUPROFEN 600 MG TABLET ONE (22:03)
[2020-01-13 22:21] LABS: MICROSCOPIC NOT IND
--- NOTE | 2020-01-13 22:21 | NUR ---
Patient given discharge instructions and they have confirmed that they understand the instructions. Patient ambulatory with steady gait. DENIES ADDITIONAL QUESTIONS OR NEEDS, NAD, NO PERSONAL BELONGINGS LEFT IN ROOM AT TIME OF DC.
[2020-01-13 22:27] VITALS: BP 135/58
== END 2020-01-13 22:34 | disposition home or self-care (01) ==
LOC: ED 21:39
DX: S39.012A Strain of muscle, fascia and tendon of lower back, initial encounter (principal); R06.02 Shortness of breath; R10.9 Unspecified abdominal pain; I10 Essential (primary) hypertension; E11.9 Type 2 diabetes mellitus without complications; K21.9 Gastro-esophageal reflux disease without esophagitis; F17.210 Nicotine dependence, cigarettes, uncomplicated; X58.XXXA Exposure to other specified factors, initial encounter; Y93.89 Activity, other specified; Y92.89 Other specified places as the place of occurrence of the external cause; Y99.8 Other external cause status
CPT/HCPCS: 36415; 71045; 72110; 80053; 81003; 85025; 99284; 99406

== ENCOUNTER 2020-02-12 02:04 | Emergency (ER) | payer MEDICARE, MEDICAID ==
[~2020-02-12] VITALS: Ht 177.8 cm; Wt 100.0 kg
[~2020-02-12 02:04] MED LIST changes: -CLIN300C8 PO; +CLIN300C9 PO; -NICO-487 TD; +NICO-587 TD
--- NOTE | 2020-02-12 02:46 | NUR ---
IV STARTED, LABS DRAWN AND AT BEDSIDE.
[2020-02-12 03:52] VITALS: BP 135/85
== END 2020-02-12 04:51 | disposition home or self-care (01) ==
LOC: ED 04:00
DX: R07.89 Other chest pain (principal); R94.31 Abnormal electrocardiogram [ECG] [EKG]; E11.9 Type 2 diabetes mellitus without complications; I10 Essential (primary) hypertension; K21.9 Gastro-esophageal reflux disease without esophagitis; F17.210 Nicotine dependence, cigarettes, uncomplicated
CPT/HCPCS: 71045; 93005; 99283; 99406

== ENCOUNTER 2020-02-24 13:31 | Emergency (ER) | payer MEDICAID, MEDICARE ==
[~2020-02-24] VITALS: Ht 177.8 cm; Wt 104.8 kg
[2020-02-24 13:37] VITALS: BP 146/98
--- NOTE | 2020-02-24 15:59 | NUR ---
Patient given discharge instructions and taxi voucher and they have confirmed that they understand the instructions. Patient going to [facility]. Patient stable and ambulatory with steady gait from ED to taxi.
== END 2020-02-24 16:00 ==
LOC: ED 15:44
DX: F33.9 Major depressive disorder, recurrent, unspecified (principal); F41.9 Anxiety disorder, unspecified; R44.0 Auditory hallucinations; I10 Essential (primary) hypertension; E11.9 Type 2 diabetes mellitus without complications; K21.9 Gastro-esophageal reflux disease without esophagitis; G40.909 Epilepsy, unspecified, not intractable, without status epilepticus; F17.200 Nicotine dependence, unspecified, uncomplicated
CPT/HCPCS: 99285

== ENCOUNTER 2020-03-28 11:34 | Inpatient (IN) | payer MEDICARE, MEDICAID ==
[~2020-03-28] VITALS: Ht 177.8 cm; Wt 108.3 kg
[2020-03-28] MEDS ORDERED: POLYETHYLENE GLYCOL 17 GM PACKET PO PRN (13:30)
[2020-03-28] MEDS ORDERED: BISACODYL 10 MG SUPP PR PRN (13:30)
[2020-03-28] MEDS ORDERED: ONDANSETRON ODT 4 MG PO PRN (13:30)
[2020-03-28 13:34] VITALS: BP 133/87
[2020-03-28] MEDS ORDERED: FLU VACC QS2020-21(6MOS UP)/PF 60MCG/0.5 ML SYR IM-VACC ONE (14:00)
[2020-03-28 14:46] LABS: BASOPHILS % (AUTO) 1 % (0-1); EOSINOPHILS % (AUTO) 3 % (1-7); LYMPHOCYTES % (AUTO) 31 % (22-44); MEAN CORPUSCULAR HEMOGLOBIN 30.6 pg (27.5-34.5); MEAN CORPUSCULAR HGB CONC 33.8 g/dL (33.2-36.2); MEAN PLATELET VOLUME 7.1 fL (7.4-10.4); MONOCYTES % (AUTO) 7 % (2-9); NEUTROPHILS % (AUTO) 58 % (42-75); PLATELET COUNT 209 x10^3/uL (130-400); RED BLOOD COUNT 5.02 x10^6/uL (4.38-5.82); RED CELL DISTRIBUTION WIDTH 14.2 % (9.4-14.8)
[2020-03-28 14:47] LABS: MD NO
[2020-03-28 14:53] LABS: ANION GAP 4 mmol/L (5-15); CALCIUM 8.2 mg/dL (8.5-10.1); CHLORIDE 109 mmol/L (98-107); CREATININE 0.84 mg/dL (0.7-1.3)
[2020-03-28] MEDS ORDERED: METO25TA91 PO (14:56)
[2020-03-28] MEDS ORDERED: ZONI50CA10 PO (14:56)
[2020-03-28] MEDS ORDERED: DIVA-61 PO (15:02)
[2020-03-28] MEDS ORDERED: BUSP7.5T5 PO (15:02)
[2020-03-28] MEDS ORDERED: OLAN10TA9 PO (15:02)
[2020-03-28] MEDS ORDERED: TOPI25TA8 PO (15:02)
[2020-03-28] MEDS: OLANZAPINE 5 MG TABLET PO SCH (17:12)
[2020-03-28 18:24] LABS: MICROSCOPIC NOT IND
[2020-03-28 19:50] VITALS: BP 105/66
[2020-03-28] MEDS: PRAZOSIN 1 MG CAPSULE PO SCH (20:16)
[2020-03-28] MEDS: GABAPENTIN 300 MG CAPSULE PO SCH (20:16)
[2020-03-29 06:00] LABS: CHOL/HDL RATIO 8.3; FREE T4 (FREE THYROXINE) 0.7 ng/dL (0.76-1.46); LDL/HDL RATIO 4.6 (0.5-3.0)
[2020-03-29] MEDS: SUMATRIPTAN 25 MG TABLET PO PRN ×2 (06:09→11:42)
[2020-03-29 07:23] VITALS: BP 123/81
[2020-03-29] MEDS ORDERED: METOPROLOL SUCCINATE 50 MG TAB.ER.24H ONE (07:54)
[2020-03-29] MEDS: METOPROLOL SUCCINATE 25 MG TAB.ER.24H PO SCH (08:18)
[2020-03-29] MEDS: GABAPENTIN 300 MG CAPSULE PO SCH ×3 (08:18→20:29)
[2020-03-29] MEDS: NICOTINE 21 MG/24 HR PATCH.TD24 TD SCH (08:18)
[2020-03-29] MEDS: ACETAMINOPHEN 325 MG TABLET PO PRN ×2 (11:10→16:24)
[2020-03-29] MEDS: OLANZAPINE 5 MG TABLET PO SCH (16:19)
[2020-03-29 18:00] VITALS: BP 118/74
[2020-03-29 19:56] VITALS: BP 126/75
[2020-03-29] MEDS: PRAZOSIN 1 MG CAPSULE PO SCH (20:29)
[2020-03-29] MEDS: DOCUSATE 100 MG CAPSULE PO PRN (20:29)
[2020-03-29] MEDS ORDERED: QUETIAPINE 100MG TABLET PO PRN (22:45)
[2020-03-30] MEDS: SUMATRIPTAN 25 MG TABLET PO PRN (06:32)
[2020-03-30 07:17] VITALS: BP 128/87
[2020-03-30] MEDS ORDERED: METOPROLOL SUCCINATE 50 MG TAB.ER.24H ONE (07:38)
[2020-03-30] MEDS: GABAPENTIN 300 MG CAPSULE PO SCH (07:53)
[2020-03-30] MEDS: METOPROLOL SUCCINATE 25 MG TAB.ER.24H PO SCH (07:54)
[2020-03-30] MEDS: NICOTINE 21 MG/24 HR PATCH.TD24 TD SCH (07:54)
[2020-03-30] MEDS: OLANZAPINE 10 MG TABLET PO SCH (16:36)
[2020-03-30] MEDS: PRAZOSIN 1 MG CAPSULE PO SCH (20:51)
[2020-03-31 07:31] VITALS: BP 138/82
[2020-03-31] MEDS: DOCUSATE 100 MG CAPSULE PO PRN (09:23)
[2020-03-31] MEDS: METOPROLOL SUCCINATE 25 MG TAB.ER.24H PO SCH (09:26)
[2020-03-31] MEDS: ACETAMINOPHEN 325 MG TABLET PO PRN (09:26)
[2020-03-31] MEDS: NICOTINE 21 MG/24 HR PATCH.TD24 TD SCH (09:27)
[2020-03-31] MEDS ORDERED: SERT50TA PO (15:47)
[2020-03-31] MEDS: OLANZAPINE 10 MG TABLET PO SCH (17:27)
[2020-03-31 19:35] VITALS: BP 115/79
[2020-03-31] MEDS: PRAZOSIN 1 MG CAPSULE PO SCH (19:48)
[2020-03-31 23:00] VITALS: BP 113/79
[2020-04-01 00:21] VITALS: BP 122/88
[2020-04-01] MEDS: ACETAMINOPHEN 325 MG TABLET PO PRN (04:03)
[2020-04-01] MEDS: SUMATRIPTAN 25 MG TABLET PO PRN (04:41)
[2020-04-01 07:09] VITALS: BP 129/85
[2020-04-01] MEDS: METOPROLOL SUCCINATE 25 MG TAB.ER.24H PO SCH (08:24)
[2020-04-01] MEDS: NICOTINE 21 MG/24 HR PATCH.TD24 TD SCH (08:28)
[2020-04-01] MEDS ORDERED: SERTRALINE 50MG TABLET PO SCH (09:00)
[2020-04-01] MEDS ORDERED: SERT50TA28 PO (09:17)
[2020-04-01] MEDS ORDERED: QUET100T PO (09:17)
[2020-04-01] MEDS ORDERED: METO25TA91 PO (09:17)
[2020-04-01] MEDS ORDERED: NICO-587 TD (09:17)
[2020-04-01] MEDS ORDERED: OLAN10TA9 PO (09:17)
[2020-04-01] MEDS ORDERED: PRAZ1CAP2 PO (09:17)
== END 2020-04-01 10:10 | disposition home or self-care (01) | DRG 885 ==
LOC: 3E 13:16
PROVIDERS: ADMIT Psychiatry & Neurology Psychosomatic Medicine; ATTEND Psychiatry & Neurology Psychosomatic Medicine
DX: F20.0 Paranoid schizophrenia (principal); R45.851 Suicidal ideations; F17.210 Nicotine dependence, cigarettes, uncomplicated; F31.9 Bipolar disorder, unspecified; G40.909 Epilepsy, unspecified, not intractable, without status epilepticus; F12.90 Cannabis use, unspecified, uncomplicated; Z88.8 Allergy status to other drugs, medicaments and biological substances; F15.11 Other stimulant abuse, in remission; G43.909 Migraine, unspecified, not intractable, without status migrainosus; K59.00 Constipation, unspecified; I25.10 Atherosclerotic heart disease of native coronary artery without angina pectoris; I10 Essential (primary) hypertension; B19.20 Unspecified viral hepatitis C without hepatic coma; F10.20 Alcohol dependence, uncomplicated; Z79.899 Other long term (current) drug therapy; F51.5 Nightmare disorder
CPT/HCPCS: 36415; 71045; 80048; 80061; 81003; 82140; 84439; 84443; 85025; 90686

== ENCOUNTER 2020-05-25 03:38 | Emergency (ER) | payer MEDICARE, MEDICAID ==
[~2020-05-25] VITALS: Ht 177.8 cm; Wt 105.0 kg
[~2020-05-25 03:38] MED LIST changes: -ASPI-515 PO; +ASPI-963 PO; +BUSP7.5T5 PO; +METO25TA91 PO; +PRAZ1CAP2 PO; +SERT50TA PO; +TOPI25TA8 PO; +ZONI50CA10 PO
--- NOTE | 2020-05-25 03:50 | NUR ---
pt bib ems for "odd behaviour", states he has been drinking but recently has been hearing voices and seeing people. Pt states "they are asking me why i am thinking about hurting people. I'm not thinking about hurting people right now but thats what they've been asking" "oh and why i want to hurt myself". pt reports drinking one tall can beer tonight. reports SI with plan to hang self. denies SA in past, hx of schizophrenia. 03/[address] and [address] on locker. pt changed into gown and provided warm blankets for comfort, sitter in line of sight, tm.
[2020-05-25] MEDS ORDERED: QUETIAPINE 100MG TABLET PO ONE (04:00)
[2020-05-25] MEDS ORDERED: QUETIAPINE 100MG TABLET ONE (04:11)
[2020-05-25 04:26] LABS: ALANINE AMINOTRANSFERASE 34 U/L (12-78); ALBUMIN 3.9 g/dL (3.4-5.0); ANION GAP 10 mmol/L (5-15); CALCIUM 8.3 mg/dL (8.5-10.1); CHLORIDE 112 mmol/L (98-107); CREATININE 0.84 mg/dL (0.7-1.3); SALICYLATE LEVEL 2.9 mg/dL (2.8-20.0)
[2020-05-25 04:28] LABS: ALKALINE PHOSPHATASE 76 U/L (45-117); BASOPHILS % (AUTO) 1 % (0-1); BILIRUBIN,TOTAL 0.2 mg/dL (0.2-1.0); EOSINOPHILS % (AUTO) 1 % (1-7); LYMPHOCYTES % (AUTO) 33 % (22-44); MEAN CORPUSCULAR HEMOGLOBIN 31.3 pg (27.5-34.5); MEAN CORPUSCULAR HGB CONC 34.8 g/dL (33.2-36.2); MEAN PLATELET VOLUME 7.4 fL (7.4-10.4); MONOCYTES % (AUTO) 6 % (2-9); NEUTROPHILS % (AUTO) 59 % (42-75); PLATELET COUNT 237 x10^3/uL (130-400); RED BLOOD COUNT 5.39 x10^6/uL (4.38-5.82); RED CELL DISTRIBUTION WIDTH 14.5 % (9.4-14.8); TOTAL PROTEIN 7.6 g/dL (6.4-8.2)
[2020-05-25 04:29] LABS: MD NO
--- NOTE | 2020-05-25 04:51 | NUR ---
PT AMBULATORY C STEADY GAIT TO ED R1. PT CALM & COOPERATIVE. DENIES ANY NEEDS. WARM BLANKETS PROVIDED. SITTER OUTSIDE OF ROOM.
[2020-05-25 04:56] LABS: AMPHETAMINE SCREEN, URINE Negative (Negative); BARBITURATE SCREEN, URINE Negative (Negative); BENZODIAZEPINE SCREEN, URINE Negative (Negative); CANNABINOID SCREEN, URINE Positive (Negative); COCAINE SCREEN, URINE Negative (Negative); METHADONE SCREEN, URINE Negative (Negative); OPIATE SCREEN, URINE Negative (Negative)
--- NOTE | 2020-05-25 05:01 | NUR ---
pt resting on gurney, appears comfortable, nad, room secured, sitter in line of sight, even and unlabored respirations, wctm.
--- NOTE | 2020-05-25 05:29 | NUR ---
TP: U LOOKING TO SEE IF PT IS ACCEPTABLE FOR ADMISSION
--- NOTE | 2020-05-25 06:08 | NUR ---
TP: PT ACCEPTED BY [facility] PENDING COVID SWAB. DAY SHIFT WILL ADMIT PT.
--- NOTE | 2020-05-25 06:13 | NUR ---
covid swab obtained and walked to lab, pt nad, after swab back to resting. pt moved to hospital bed for comfort, room secured, sitter in line of sight, pt to be transferred to U in am for day shift. panfilo.
--- NOTE | 2020-05-25 06:53 | NUR ---
report to zachariah christopher, pt care transferred at this time.
--- NOTE | 2020-05-25 07:10 | NUR ---
REPORT REC'D FROM DISTRIBUTION TECHNICIAN. PT RESTING IN BED WITH EYES CLOSED. SITTER AT DOOR.
--- NOTE | 2020-05-25 08:10 | NUR ---
PT SLEEPING IN BED. SITTER AT DOOR.
[2020-05-25 08:41] VITALS: BP 138/84
--- NOTE | 2020-05-25 09:02 | NUR ---
MRS. REYES (MOTHER) [phone] LEASE ATTENDANT - MARYANNE DISLA [phone] (HAS RECENT LIST OF MEDS)
[2020-05-25] MEDS ORDERED: IBUP-1223 PO (11:06)
[2020-05-25] MEDS ORDERED: CLIN300C9 PO (11:06)
[2020-05-25] MEDS ORDERED: ATOR20TA86 PO (11:28)
[2020-05-25] MEDS ORDERED: BREX4TAB PO (14:41)
== END 2020-05-25 10:00 | disposition other institution (70) ==
LOC: ED 05:09
DX: F20.9 Schizophrenia, unspecified (principal); Z20.822 Contact with and (suspected) exposure to COVID-19; R45.851 Suicidal ideations; I10 Essential (primary) hypertension; K21.9 Gastro-esophageal reflux disease without esophagitis; E11.9 Type 2 diabetes mellitus without complications; F17.210 Nicotine dependence, cigarettes, uncomplicated
CPT/HCPCS: 36415; 80053; 80143; 80179; 80307; 80320; 85025; 87426; 99285; 99406; G0480

== ENCOUNTER 2020-05-25 07:46 | Inpatient (IN) | payer MEDICARE, MEDICAID ==
[~2020-05-25] VITALS: Ht 177.8 cm; Wt 108.2 kg
[2020-05-25] MEDS ORDERED: ONDANSETRON ODT 4 MG PO PRN (08:00)
[2020-05-25] MEDS ORDERED: DOCUSATE 100 MG CAPSULE PO PRN (08:00)
[2020-05-25] MEDS ORDERED: BISACODYL 10 MG SUPP PR PRN (08:00)
[2020-05-25] MEDS ORDERED: POLYETHYLENE GLYCOL 17 GM PACKET PO PRN (08:00)
[2020-05-25 10:23] VITALS: BP 143/89
[2020-05-25] MEDS ORDERED: CLIN300C9 PO (11:06)
[2020-05-25] MEDS ORDERED: IBUP-1223 PO (11:06)
[2020-05-25] MEDS ORDERED: ATOR20TA86 PO (11:28)
[2020-05-25] MEDS ORDERED: BREX4TAB PO (14:41)
[2020-05-25] MEDS: IBUPROFEN 200 MG TABLET PO PRN (17:32)
[2020-05-25] MEDS: OLANZAPINE 10 MG TABLET PO SCH (17:32)
[2020-05-25] MEDS: CLINDAMYCIN 300 MG CAPSULE PO SCH ×2 (17:32→21:21)
[2020-05-25 19:14] VITALS: BP 110/73
[2020-05-25] MEDS ORDERED: PRAZOSIN 5 MG CAPSULE ONE (20:31)
[2020-05-25] MEDS ORDERED: PRAZOSIN 2 MG CAPSULE ONE ×2 (20:32→20:35)
[2020-05-25] MEDS: PRAZOSIN 1 MG CAPSULE PO SCH (21:00)
[2020-05-25] MEDS: DIVALPROEX 500 MG TABLET.DR PO SCH (21:21)
[2020-05-25] MEDS: BENZTROPINE 1 MG TABLET PO SCH (21:21)
[2020-05-25] MEDS: ATORVASTATIN 20 MG TABLET PO SCH (21:21)
[2020-05-25] MEDS: TOPIRAMATE 25 MG TABLET PO SCH (21:23)
[2020-05-26] MEDS: ASPIRIN 81 MG TABLET EC PO SCH (06:05)
[2020-05-26] MEDS: METOPROLOL SUCCINATE 25 MG TAB.ER.24H PO SCH (06:06)
[2020-05-26] MEDS: IBUPROFEN 200 MG TABLET PO PRN ×3 (06:08→23:46)
[2020-05-26 07:54] VITALS: BP 123/77
[2020-05-26] MEDS: CLINDAMYCIN 300 MG CAPSULE PO SCH ×3 (08:48→21:32)
[2020-05-26] MEDS: TOPIRAMATE 25 MG TABLET PO SCH ×2 (08:49→21:32)
[2020-05-26] MEDS: SERTRALINE 50MG TABLET PO SCH (08:49)
[2020-05-26] MEDS: DIVALPROEX 500 MG TABLET.DR PO SCH ×2 (08:49→21:31)
[2020-05-26] MEDS: BENZTROPINE 1 MG TABLET PO SCH ×2 (08:49→21:32)
[2020-05-26] MEDS: NICOTINE 21 MG/24 HR PATCH.TD24 TD SCH (08:53)
[2020-05-26] MEDS: OLANZAPINE 10 MG TABLET PO SCH (17:34)
[2020-05-26 19:26] VITALS: BP 150/90
[2020-05-26] MEDS: ATORVASTATIN 20 MG TABLET PO SCH (21:31)
[2020-05-26] MEDS: PRAZOSIN 1 MG CAPSULE PO SCH (21:32)
[2020-05-27 02:42] LABS: MICROSCOPIC NOT IND
[2020-05-27] MEDS: ACETAMINOPHEN 325 MG TABLET PO PRN (04:29)
[2020-05-27] MEDS: ASPIRIN 81 MG TABLET EC PO SCH (05:48)
[2020-05-27] MEDS: METOPROLOL SUCCINATE 25 MG TAB.ER.24H PO SCH (05:48)
[2020-05-27 07:50] VITALS: BP 151/98
[2020-05-27] MEDS: DIVALPROEX 500 MG TABLET.DR PO SCH ×2 (08:31→20:52)
[2020-05-27] MEDS: SERTRALINE 50MG TABLET PO SCH (08:31)
[2020-05-27] MEDS: BENZTROPINE 1 MG TABLET PO SCH ×2 (08:31→20:52)
[2020-05-27] MEDS: CLINDAMYCIN 300 MG CAPSULE PO SCH ×3 (08:31→20:52)
[2020-05-27] MEDS: TOPIRAMATE 25 MG TABLET PO SCH ×2 (08:31→20:52)
[2020-05-27] MEDS: NICOTINE 21 MG/24 HR PATCH.TD24 TD SCH (08:32)
[2020-05-27] MEDS: IBUPROFEN 200 MG TABLET PO PRN ×2 (09:33→18:41)
[2020-05-27] MEDS: OLANZAPINE 10 MG TABLET PO SCH (16:39)
[2020-05-27 20:00] VITALS: BP 150/90
[2020-05-27] MEDS: PRAZOSIN 1 MG CAPSULE PO SCH (20:52)
[2020-05-27] MEDS: ATORVASTATIN 20 MG TABLET PO SCH (20:53)
[2020-05-28] MEDS: ACETAMINOPHEN 325 MG TABLET PO PRN ×2 (02:52→20:42)
[2020-05-28] MEDS: METOPROLOL SUCCINATE 25 MG TAB.ER.24H PO SCH (06:00)
[2020-05-28] MEDS: ASPIRIN 81 MG TABLET EC PO SCH (06:15)
[2020-05-28 06:16] VITALS: BP 127/85
[2020-05-28] MEDS: NICOTINE 21 MG/24 HR PATCH.TD24 TD SCH (07:45)
[2020-05-28] MEDS: DIVALPROEX 500 MG TABLET.DR PO SCH ×2 (07:45→20:08)
[2020-05-28] MEDS: SERTRALINE 50MG TABLET PO SCH (07:45)
[2020-05-28] MEDS: TOPIRAMATE 25 MG TABLET PO SCH ×2 (07:46→20:08)
[2020-05-28] MEDS: BENZTROPINE 1 MG TABLET PO SCH ×2 (07:46→20:08)
[2020-05-28] MEDS: IBUPROFEN 200 MG TABLET PO PRN (07:46)
[2020-05-28] MEDS: CLINDAMYCIN 300 MG CAPSULE PO SCH ×3 (07:46→20:08)
[2020-05-28 07:47] VITALS: BP 145/94
[2020-05-28] MEDS: ORAJEL 7GM TUBE MM PRN (10:05)
[2020-05-28] MEDS ORDERED: HYDROcodone/APAP 5/325 TABLET ONE (15:20)
[2020-05-28] MEDS ORDERED: HYDROcodone/APAP 5/325 TABLET PO ONE (15:30)
[2020-05-28 16:29] VITALS: BP 115/71
[2020-05-28] MEDS: OLANZAPINE 10 MG TABLET PO SCH (17:00)
[2020-05-28 19:30] VITALS: BP 150/80
[2020-05-28] MEDS: ATORVASTATIN 20 MG TABLET PO SCH (20:08)
[2020-05-28] MEDS: PRAZOSIN 1 MG CAPSULE PO SCH (20:09)
[2020-05-29] MEDS: ACETAMINOPHEN 325 MG TABLET PO PRN ×2 (02:59→11:24)
[2020-05-29] MEDS: HYDROXYZINE PAMOATE 50MG CAP PO PRN ×2 (03:29→11:24)
[2020-05-29] MEDS: ASPIRIN 81 MG TABLET EC PO SCH (05:30)
[2020-05-29] MEDS: METOPROLOL SUCCINATE 25 MG TAB.ER.24H PO SCH (05:31)
[2020-05-29 07:23] VITALS: BP 128/82
[2020-05-29] MEDS: TOPIRAMATE 25 MG TABLET PO SCH ×2 (08:24→20:32)
[2020-05-29] MEDS: SERTRALINE 50MG TABLET PO SCH (08:24)
[2020-05-29] MEDS: CLINDAMYCIN 300 MG CAPSULE PO SCH ×3 (08:24→20:32)
[2020-05-29] MEDS: DIVALPROEX 500 MG TABLET.DR PO SCH ×2 (08:24→20:32)
[2020-05-29] MEDS: NICOTINE 21 MG/24 HR PATCH.TD24 TD SCH (08:25)
[2020-05-29] MEDS: BENZTROPINE 1 MG TABLET PO SCH ×2 (08:25→20:32)
[2020-05-29] MEDS: OLANZAPINE 10 MG TABLET PO SCH (16:12)
[2020-05-29] MEDS: ORAJEL 7GM TUBE MM PRN (16:13)
[2020-05-29] MEDS: ATORVASTATIN 20 MG TABLET PO SCH (20:32)
[2020-05-29] MEDS: PRAZOSIN 1 MG CAPSULE PO SCH (20:33)
[2020-05-30 05:07] VITALS: BP 137/81
[2020-05-30] MEDS: ASPIRIN 81 MG TABLET EC PO SCH (05:07)
[2020-05-30] MEDS: METOPROLOL SUCCINATE 25 MG TAB.ER.24H PO SCH (05:07)
[2020-05-30 07:57] VITALS: BP 136/94
[2020-05-30] MEDS: NICOTINE 21 MG/24 HR PATCH.TD24 TD SCH (08:56)
[2020-05-30] MEDS: TOPIRAMATE 25 MG TABLET PO SCH (08:56)
[2020-05-30] MEDS: BENZTROPINE 1 MG TABLET PO SCH (08:56)
[2020-05-30] MEDS: CLINDAMYCIN 300 MG CAPSULE PO SCH (08:56)
[2020-05-30] MEDS: DIVALPROEX 500 MG TABLET.DR PO SCH (08:56)
[2020-05-30] MEDS: SERTRALINE 50MG TABLET PO SCH (08:56)
[2020-05-30] MEDS: IBUPROFEN 200 MG TABLET PO PRN (09:04)
== END 2020-05-30 15:31 | disposition home or self-care (01) | DRG 885 ==
LOC: 3E 10:04
PROVIDERS: ADMIT Psychiatry & Neurology Psychosomatic Medicine; ATTEND Psychiatry & Neurology Psychosomatic Medicine
DX: F20.0 Paranoid schizophrenia (principal); R45.851 Suicidal ideations; F15.20 Other stimulant dependence, uncomplicated; F10.20 Alcohol dependence, uncomplicated; F17.200 Nicotine dependence, unspecified, uncomplicated; G40.909 Epilepsy, unspecified, not intractable, without status epilepticus; G43.909 Migraine, unspecified, not intractable, without status migrainosus; K04.7 Periapical abscess without sinus; Z60.2 Problems related to living alone; F17.210 Nicotine dependence, cigarettes, uncomplicated; I10 Essential (primary) hypertension; F12.20 Cannabis dependence, uncomplicated; E78.5 Hyperlipidemia, unspecified; Z86.19 Personal history of other infectious and parasitic diseases; Z91.5 Personal history of self-harm; Z88.8 Allergy status to other drugs, medicaments and biological substances; Z88.1 Allergy status to other antibiotic agents; Z91.041 Radiographic dye allergy status; Z82.49 Family history of ischemic heart disease and other diseases of the circulatory system
CPT/HCPCS: 71045; 81003; 93005; 94660

== ENCOUNTER 2020-06-15 11:30 | Observation (INO) | payer MEDICAID, MEDICARE ==
[~2020-06-15] VITALS: Ht 177.8 cm; Wt 103.7 kg
[~2020-06-15 11:30] MED LIST changes: +ATOR20TA86 PO; +BREX4TAB PO; +IBUP-1223 PO
--- NOTE | 2020-06-15 11:55 | NUR ---
TYSON RN: SITTER REQUEST FROM [facility] AT THIS TIME.
[2020-06-15 12:06] LABS: MEAN CORPUSCULAR HEMOGLOBIN 31.1 pg (27.5-34.5); MEAN CORPUSCULAR HGB CONC 34.4 g/dL (33.2-36.2); PLATELET COUNT 164 x10^3/uL (130-400); RED BLOOD COUNT 5.78 x10^6/uL (4.38-5.82); RED CELL DISTRIBUTION WIDTH 14.3 % (9.4-14.8)
[2020-06-15 12:15] LABS: ALANINE AMINOTRANSFERASE 41 U/L (12-78); ALBUMIN 4.5 g/dL (3.4-5.0); ANION GAP 8 mmol/L (5-15); CALCIUM 8.7 mg/dL (8.5-10.1); CHLORIDE 108 mmol/L (98-107); CREATININE 0.95 mg/dL (0.7-1.3); SALICYLATE LEVEL 3.4 mg/dL (2.8-20.0)
[2020-06-15 12:17] LABS: ALKALINE PHOSPHATASE 88 U/L (45-117); BILIRUBIN,TOTAL 0.5 mg/dL (0.2-1.0); TOTAL PROTEIN 8.4 g/dL (6.4-8.2)
[2020-06-15 12:27] LABS: MD YES
[2020-06-15 12:28] LABS: BAND#(MANUAL) 0.47 x10^3/uL; BANDS%(MANUAL) 5 % (0-7); LYMPH#(MANUAL) 0.28 x10^3/uL (1-3.4); LYMPHS% (MANUAL) 3 % (22-44); MONOS#(MANUAL) 0.09 x10^3/uL (0.3-2.7); MONOS% (MANUAL) 1 % (2-9); SEG#(MANUAL) 8.46 x10^3/uL (1.8-6.8); SEGS% (MANUAL) 91 % (42-75)
[2020-06-15 12:29] LABS: <PLATELET ESTIMATE> DECREASED; <PLT MORPHOLOGY> NORMAL PLT MORPH; <RBC MORPHOLOGY> NORMAL
--- NOTE | 2020-06-15 14:13 | NUR ---
URINE/COVID SPECIMENS COLLECTED AND WALKED TO LAB. PT RESTING WITH NO COMPLAINTS. CALL BUTTON IN REACH. FOOD TRAY ORDERED. PT REMAINS UNDER CONSTANT SUPERVISION OF SITTER AND REMAINS SAFE. PT TO BE TRANSFERRED TO [facility].
--- NOTE | 2020-06-15 14:19 | NUR ---
RECEIVED REPORT FROM BONITA WATERS AND DENICE RN. ASSUMING CARE AT THIS TIME. ROOM SECURE, PT IN DIRECT SIGHT OF SITTER. BELONGINGS IN ED LOCKER. PT IS ON PSYCH HOLD BY PSYCH PRADEEP. PT LAYING ON GURNEY. RAINEY.
[2020-06-15 14:31] LABS: AMPHETAMINE SCREEN, URINE Negative (Negative); BARBITURATE SCREEN, URINE Negative (Negative); BENZODIAZEPINE SCREEN, URINE Negative (Negative); CANNABINOID SCREEN, URINE Positive (Negative); COCAINE SCREEN, URINE Negative (Negative); METHADONE SCREEN, URINE Negative (Negative); OPIATE SCREEN, URINE Negative (Negative)
--- NOTE | 2020-06-15 15:03 | NUR ---
TP RN: PT ACCEPTED TO [facility] BY .
--- NOTE | 2020-06-15 15:31 | NUR ---
REPORT GIVEN TO DUONG WATERS. PT RTG TO ROOM 388-1
[2020-06-15] MEDS ORDERED: DOCUSATE 100 MG CAPSULE PO PRN ×2 (16:30→17:30)
[2020-06-15] MEDS ORDERED: ONDANSETRON ODT 4 MG PO PRN ×2 (16:30→17:00)
[2020-06-15] MEDS ORDERED: BISACODYL 10 MG SUPP PR PRN ×2 (16:30→17:30)
[2020-06-15] MEDS ORDERED: POLYETHYLENE GLYCOL 17 GM PACKET PO PRN ×2 (16:30→17:30)
[2020-06-15] MEDS ORDERED: ACETAMINOPHEN 325 MG TABLET PO PRN ×2 (16:30→17:00)
[2020-06-15 16:53] LABS: MICROSCOPIC INDICATED
[2020-06-15] MEDS ORDERED: NICOTINE 21 MG/24 HR PATCH.TD24 TD SCH (17:30)
[2020-06-15] MEDS ORDERED: BENZ1TAB61 PO (17:51)
[2020-06-15] MEDS ORDERED: ATOR20TA37 PO (17:51)
[2020-06-15] MEDS ORDERED: MELO15TA24 PO (17:51)
[2020-06-15] MEDS ORDERED: PRAZ1CAP2 PO (17:51)
[2020-06-15] MEDS ORDERED: ZONI100C29 PO (17:51)
[2020-06-15 17:53] VITALS: BP 138/88
[2020-06-15] MEDS ORDERED: IBUPROFEN 800 MG TABLET PO PRN (18:00)
[2020-06-15] MEDS ORDERED: TRAZODONE 50MG TABLET PO PRN (18:00)
[2020-06-15] MEDS ORDERED: HYDROXYZINE PAMOATE 50MG CAP PO PRN (18:00)
[2020-06-15] MEDS ORDERED: QUETIAPINE 100MG TABLET PO PRN (18:00)
[2020-06-15] MEDS ORDERED: DIVALPROEX 500 MG TABLET.DR PO SCH (21:00)
[2020-06-15] MEDS ORDERED: ATORVASTATIN 40 MG TABLET PO SCH (21:00)
[2020-06-15] MEDS ORDERED: RISPERIDONE 2 MG TABLET PO SCH (21:00)
[2020-06-15] MEDS ORDERED: BUSPIRONE 5 MG TABLET PO SCH (21:00)
[2020-06-15] MEDS ORDERED: ZONISAMIDE 50 MG CAPSULE PO SCH (21:00)
[2020-06-15] MEDS ORDERED: ACAMPROSATE 333 MG TABLET.DR PO SCH (21:00)
[2020-06-15] MEDS ORDERED: OLANZAPINE 10 MG TABLET PO SCH (21:00)
[2020-06-15] MEDS ORDERED: TOPIRAMATE 25 MG TABLET PO SCH (21:00)
[2020-06-15] MEDS ORDERED: PRAZOSIN 1 MG CAPSULE PO SCH (21:00)
[2020-06-15] MEDS ORDERED: BENZTROPINE 1 MG TABLET PO SCH (21:00)
[2020-06-16] MEDS ORDERED: INSULIN SINGLE DOSE, ER ONE (01:07)
[2020-06-16] MEDS ORDERED: METOPROLOL SUCCINATE 25 MG TAB.ER.24H PO SCH (06:00)
[2020-06-16] MEDS ORDERED: ASPIRIN 81 MG TABLET EC PO SCH (06:00)
[2020-06-16] MEDS ORDERED: SERTRALINE 50MG TABLET PO SCH (09:00)
[2020-06-16] MEDS ORDERED: OLANZAPINE 10 MG TABLET PO SCH (17:00)
== END 2020-06-16 04:25 | disposition still patient (30) ==
LOC: ED 12:55 → EDIP 12:56 → UNDOADMIN 13:03 → EDIP 13:03 → UNDOADMIN 16:10 → 3E 16:10 → UNDOADMIN 16:33 → INTOOBSV 19:11 → UNDOADMOB 19:11 → EDIP 19:11 → UNDODISOB 06-16 04:25
PROVIDERS: ADMIT Emergency Medicine; ATTEND Emergency Medicine
DX: F20.0 Paranoid schizophrenia (principal); Z20.822 Contact with and (suspected) exposure to COVID-19; F32.9 Major depressive disorder, single episode, unspecified; I10 Essential (primary) hypertension; R45.851 Suicidal ideations; F15.10 Other stimulant abuse, uncomplicated; F17.200 Nicotine dependence, unspecified, uncomplicated; F12.90 Cannabis use, unspecified, uncomplicated; F10.20 Alcohol dependence, uncomplicated; G43.909 Migraine, unspecified, not intractable, without status migrainosus; G40.909 Epilepsy, unspecified, not intractable, without status epilepticus; Z79.899 Other long term (current) drug therapy; Z88.0 Allergy status to penicillin
CPT/HCPCS: 36415; 71045; 80053; 80299; 80307; 80320; 80329; 81001; 85025; 87086; 87426; 99284; G0378; J1815; 99285; G0480

== ENCOUNTER 2020-06-15 16:36 | Inpatient (IN) | payer MEDICARE ==
[~2020-06-15] VITALS: Ht 177.8 cm; Wt 104.7 kg
[2020-06-15] MEDS ORDERED: BENZ1TAB61 PO (17:51)
[2020-06-15] MEDS ORDERED: PRAZ1CAP2 PO (17:51)
[2020-06-15] MEDS ORDERED: ZONI100C29 PO (17:51)
[2020-06-15] MEDS ORDERED: ATOR20TA37 PO (17:51)
[2020-06-15] MEDS ORDERED: MELO15TA24 PO (17:51)
[2020-06-15] MEDS ORDERED: hydrOXyzine 50MG TABLET ONE (18:16)
[2020-06-15] MEDS ORDERED: BISACODYL 10 MG SUPP PR PRN (18:30)
[2020-06-15] MEDS ORDERED: POLYETHYLENE GLYCOL 17 GM PACKET PO PRN (18:30)
[2020-06-15] MEDS ORDERED: DOCUSATE 100 MG CAPSULE PO PRN (18:30)
[2020-06-15] MEDS ORDERED: ONDANSETRON ODT 4 MG PO PRN (18:30)
[2020-06-15 18:47] VITALS: BP 138/88
[2020-06-15] MEDS ORDERED: PLEASE ENTER HEIGHT AND WEIGHT MC SCH (19:00)
[2020-06-15] MEDS ORDERED: TRAZODONE 50MG TABLET PO PRN (19:00)
[2020-06-15] MEDS ORDERED: QUETIAPINE 100MG TABLET PO PRN (19:00)
[2020-06-15 19:30] VITALS: BP 133/83
[2020-06-15] MEDS ORDERED: ATORVASTATIN 20 MG TABLET PO SCH (21:00)
[2020-06-15] MEDS: BUSPIRONE 5 MG TABLET PO SCH (21:06)
[2020-06-15] MEDS: DIVALPROEX 500 MG TABLET.DR PO SCH (21:06)
[2020-06-15] MEDS: ACAMPROSATE 333 MG TABLET.DR PO SCH (21:06)
[2020-06-15] MEDS: BENZTROPINE 1 MG TABLET PO SCH (21:06)
[2020-06-15] MEDS: TOPIRAMATE 25 MG TABLET PO SCH (21:07)
[2020-06-15] MEDS: RISPERIDONE 2 MG TABLET PO SCH (21:07)
[2020-06-15] MEDS: OLANZAPINE 10 MG TABLET PO SCH (21:07)
[2020-06-15] MEDS: ZONISAMIDE 50 MG CAPSULE PO SCH (21:08)
[2020-06-15] MEDS: PRAZOSIN 1 MG CAPSULE PO SCH (21:08)
[2020-06-15] MEDS: ATORVASTATIN 40 MG TABLET PO SCH (21:08)
[2020-06-16] MEDS: HYDROXYZINE PAMOATE 50MG CAP PO PRN (04:32)
[2020-06-16 07:08] LABS: CHOL/HDL RATIO 3.9; FREE T4 (FREE THYROXINE) 1.1 ng/dL (0.76-1.46); LDL/HDL RATIO 1.7 (0.5-3.0)
[2020-06-16 07:40] VITALS: BP 139/95
[2020-06-16] MEDS: BENZTROPINE 1 MG TABLET PO SCH ×2 (08:29→20:31)
[2020-06-16] MEDS: TOPIRAMATE 25 MG TABLET PO SCH ×2 (08:29→20:31)
[2020-06-16] MEDS: DIVALPROEX 500 MG TABLET.DR PO SCH ×2 (08:29→20:31)
[2020-06-16] MEDS: METOPROLOL SUCCINATE 25 MG TAB.ER.24H PO SCH (08:29)
[2020-06-16] MEDS: RISPERIDONE 2 MG TABLET PO SCH ×2 (08:29→20:31)
[2020-06-16] MEDS: ACAMPROSATE 333 MG TABLET.DR PO SCH ×3 (08:29→20:30)
[2020-06-16] MEDS: ASPIRIN 81 MG TABLET EC PO SCH (08:29)
[2020-06-16] MEDS: NICOTINE 21 MG/24 HR PATCH.TD24 TD SCH (08:30)
[2020-06-16] MEDS: SERTRALINE 50MG TABLET PO SCH (08:35)
[2020-06-16] MEDS: BUSPIRONE 5 MG TABLET PO SCH ×2 (08:35→20:31)
[2020-06-16] MEDS: ZONISAMIDE 50 MG CAPSULE PO SCH ×2 (08:35→20:32)
[2020-06-16] MEDS: IBUPROFEN 200 MG TABLET PO PRN (08:39)
[2020-06-16] MEDS ORDERED: METOPROLOL SUCCINATE 25 MG TAB.ER.24H PO SCH (09:00)
[2020-06-16 12:49] VITALS: BP 113/77
[2020-06-16] MEDS: OLANZAPINE 10 MG TABLET PO SCH ×2 (16:23→20:31)
[2020-06-16 19:45] VITALS: BP 135/88
[2020-06-16] MEDS: ATORVASTATIN 40 MG TABLET PO SCH (20:31)
[2020-06-16] MEDS: PRAZOSIN 1 MG CAPSULE PO SCH (20:32)
[2020-06-17] MEDS: HYDROXYZINE PAMOATE 50MG CAP PO PRN (01:45)
[2020-06-17] MEDS: ACETAMINOPHEN 325 MG TABLET PO PRN (03:59)
[2020-06-17 06:23] LABS: MICROSCOPIC INDICATED
[2020-06-17 07:43] VITALS: BP 122/80
[2020-06-17] MEDS: NICOTINE 21 MG/24 HR PATCH.TD24 TD SCH (08:33)
[2020-06-17] MEDS: BUSPIRONE 5 MG TABLET PO SCH ×2 (08:34→20:12)
[2020-06-17] MEDS: BENZTROPINE 1 MG TABLET PO SCH ×2 (08:34→20:13)
[2020-06-17] MEDS: RISPERIDONE 2 MG TABLET PO SCH ×2 (08:34→20:13)
[2020-06-17] MEDS: ACAMPROSATE 333 MG TABLET.DR PO SCH ×3 (08:34→20:13)
[2020-06-17] MEDS: TOPIRAMATE 25 MG TABLET PO SCH ×2 (08:35→20:13)
[2020-06-17] MEDS: ASPIRIN 81 MG TABLET EC PO SCH (08:35)
[2020-06-17] MEDS: DIVALPROEX 500 MG TABLET.DR PO SCH ×2 (08:35→20:12)
[2020-06-17] MEDS: SERTRALINE 50MG TABLET PO SCH (08:36)
[2020-06-17] MEDS: METOPROLOL SUCCINATE 25 MG TAB.ER.24H PO SCH (08:36)
[2020-06-17] MEDS: ZONISAMIDE 50 MG CAPSULE PO SCH ×2 (08:39→20:22)
[2020-06-17] MEDS: OLANZAPINE 10 MG TABLET PO SCH ×2 (16:07→20:13)
[2020-06-17 19:47] VITALS: BP 129/89
[2020-06-17] MEDS: ATORVASTATIN 40 MG TABLET PO SCH (20:13)
[2020-06-17] MEDS: PRAZOSIN 1 MG CAPSULE PO SCH (20:14)
[2020-06-18 06:14] VITALS: BP 136/91
[2020-06-18] MEDS: ASPIRIN 81 MG TABLET EC PO SCH (06:17)
[2020-06-18] MEDS: METOPROLOL SUCCINATE 25 MG TAB.ER.24H PO SCH (06:18)
[2020-06-18] MEDS: IBUPROFEN 200 MG TABLET PO PRN (06:46)
[2020-06-18 07:44] VITALS: BP 131/89
[2020-06-18] MEDS: ACAMPROSATE 333 MG TABLET.DR PO SCH ×3 (09:14→22:07)
[2020-06-18] MEDS: BENZTROPINE 1 MG TABLET PO SCH ×2 (09:14→22:06)
[2020-06-18] MEDS: DIVALPROEX 500 MG TABLET.DR PO SCH ×2 (09:15→22:07)
[2020-06-18] MEDS: RISPERIDONE 2 MG TABLET PO SCH ×2 (09:15→22:07)
[2020-06-18] MEDS: TOPIRAMATE 25 MG TABLET PO SCH ×2 (09:15→22:07)
[2020-06-18] MEDS: BUSPIRONE 5 MG TABLET PO SCH ×2 (09:16→22:07)
[2020-06-18] MEDS: SERTRALINE 50MG TABLET PO SCH (09:16)
[2020-06-18] MEDS: NICOTINE 21 MG/24 HR PATCH.TD24 TD SCH (09:18)
[2020-06-18] MEDS: ZONISAMIDE 50 MG CAPSULE PO SCH ×2 (10:22→22:07)
[2020-06-18] MEDS: HYDROXYZINE PAMOATE 50MG CAP PO PRN (13:54)
[2020-06-18] MEDS: OLANZAPINE 10 MG TABLET PO SCH ×2 (15:56→22:06)
[2020-06-18 19:51] VITALS: BP 117/74
[2020-06-18] MEDS: PRAZOSIN 1 MG CAPSULE PO SCH (22:07)
[2020-06-18] MEDS: ATORVASTATIN 40 MG TABLET PO SCH (22:07)
[2020-06-19] MEDS: HYDROXYZINE PAMOATE 50MG CAP PO PRN ×2 (02:34→10:41)
[2020-06-19] MEDS: ACETAMINOPHEN 325 MG TABLET PO PRN ×2 (02:34→23:21)
[2020-06-19 07:33] VITALS: BP 131/85
[2020-06-19] MEDS: BENZTROPINE 1 MG TABLET PO SCH ×2 (08:46→20:14)
[2020-06-19] MEDS: ZONISAMIDE 50 MG CAPSULE PO SCH ×2 (08:46→20:16)
[2020-06-19] MEDS: BUSPIRONE 5 MG TABLET PO SCH ×2 (08:46→20:15)
[2020-06-19] MEDS: TOPIRAMATE 25 MG TABLET PO SCH ×2 (08:46→20:16)
[2020-06-19] MEDS: SERTRALINE 50MG TABLET PO SCH (08:47)
[2020-06-19] MEDS: RISPERIDONE 2 MG TABLET PO SCH ×2 (08:47→20:16)
[2020-06-19] MEDS: DIVALPROEX 500 MG TABLET.DR PO SCH ×2 (08:47→20:14)
[2020-06-19] MEDS: ACAMPROSATE 333 MG TABLET.DR PO SCH ×3 (08:47→20:16)
[2020-06-19] MEDS: ASPIRIN 81 MG TABLET EC PO SCH (08:47)
[2020-06-19] MEDS: METOPROLOL SUCCINATE 25 MG TAB.ER.24H PO SCH (08:47)
[2020-06-19] MEDS: NICOTINE 21 MG/24 HR PATCH.TD24 TD SCH (08:48)
[2020-06-19] MEDS: IBUPROFEN 200 MG TABLET PO PRN (10:41)
[2020-06-19] MEDS ORDERED: ACAM333T7 PO (14:19)
[2020-06-19] MEDS: OLANZAPINE 10 MG TABLET PO SCH ×2 (16:46→20:14)
[2020-06-19 19:34] VITALS: BP 133/70
[2020-06-19] MEDS: PRAZOSIN 1 MG CAPSULE PO SCH (20:14)
[2020-06-19] MEDS: ATORVASTATIN 40 MG TABLET PO SCH (20:14)
[2020-06-20] MEDS: ASPIRIN 81 MG TABLET EC PO SCH (05:54)
[2020-06-20] MEDS: METOPROLOL SUCCINATE 25 MG TAB.ER.24H PO SCH (05:54)
[2020-06-20 07:11] VITALS: BP 137/83
[2020-06-20] MEDS: BUSPIRONE 5 MG TABLET PO SCH (08:43)
[2020-06-20] MEDS: ACAMPROSATE 333 MG TABLET.DR PO SCH (08:43)
[2020-06-20] MEDS: RISPERIDONE 2 MG TABLET PO SCH (08:44)
[2020-06-20] MEDS: DIVALPROEX 500 MG TABLET.DR PO SCH (08:44)
[2020-06-20] MEDS: TOPIRAMATE 25 MG TABLET PO SCH (08:44)
[2020-06-20] MEDS: BENZTROPINE 1 MG TABLET PO SCH (08:44)
[2020-06-20] MEDS: SERTRALINE 50MG TABLET PO SCH (08:44)
[2020-06-20] MEDS: ZONISAMIDE 50 MG CAPSULE PO SCH (08:45)
[2020-06-20] MEDS: NICOTINE 21 MG/24 HR PATCH.TD24 TD SCH (08:47)
[2020-06-20] MEDS: IBUPROFEN 200 MG TABLET PO PRN (09:36)
== END 2020-06-20 10:50 | disposition home or self-care (01) | DRG 885 ==
LOC: 3E 16:36
PROVIDERS: ADMIT Psychiatry & Neurology Psychosomatic Medicine; ATTEND Psychiatry & Neurology Psychosomatic Medicine
PROC: 5A09357 Assistance with Respiratory Ventilation, Less than 24 Consecutive Hours, Continuous Positive Airway Pressure (ICD-10-PCS; principal; 2020-06-19)
PROC: 5A09357 Assistance with Respiratory Ventilation, Less than 24 Consecutive Hours, Continuous Positive Airway Pressure (ICD-10-PCS; 2020-06-20)
DX: F20.0 Paranoid schizophrenia (principal); R45.851 Suicidal ideations; F15.20 Other stimulant dependence, uncomplicated; F11.20 Opioid dependence, uncomplicated; F10.10 Alcohol abuse, uncomplicated; F12.10 Cannabis abuse, uncomplicated; F17.210 Nicotine dependence, cigarettes, uncomplicated; G40.909 Epilepsy, unspecified, not intractable, without status epilepticus; G43.909 Migraine, unspecified, not intractable, without status migrainosus; I10 Essential (primary) hypertension; E66.9 Obesity, unspecified; E78.5 Hyperlipidemia, unspecified; F32.9 Major depressive disorder, single episode, unspecified; Z91.5 Personal history of self-harm; Z86.19 Personal history of other infectious and parasitic diseases; Z88.1 Allergy status to other antibiotic agents; Z88.8 Allergy status to other drugs, medicaments and biological substances; Z91.041 Radiographic dye allergy status; Z82.49 Family history of ischemic heart disease and other diseases of the circulatory system; Z82.0 Family history of epilepsy and other diseases of the nervous system; Z80.9 Family history of malignant neoplasm, unspecified; Z68.32 Body mass index [BMI] 32.0-32.9, adult; Z91.011 Allergy to milk products; Z56.0 Unemployment, unspecified
CPT/HCPCS: 36415; 80061; 81001; 82607; 84439; 84443; 94660

== ENCOUNTER 2020-08-26 22:55 | Observation (INO) | payer MEDICARE ==
[~2020-08-26] VITALS: Ht 172.7 cm; Wt 81.8 kg
[~2020-08-26 22:55] MED LIST changes: +ACAM333T7 PO; +MIRT-14 PO; -MIRT-34 PO; +ZONI100C29 PO
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
[2020-08-26 23:31] LABS: BASOPHILS % (AUTO) 1 % (0-1); EOSINOPHILS % (AUTO) 1 % (1-7); LYMPHOCYTES % (AUTO) 32 % (22-44); MEAN CORPUSCULAR HEMOGLOBIN 31.7 pg (27.5-34.5); MEAN PLATELET VOLUME 7.4 fL (7.4-10.4); MONOCYTES % (AUTO) 9 % (2-9); NEUTROPHILS % (AUTO) 58 % (42-75); PLATELET COUNT 214 x10^3/uL (130-400); RED BLOOD COUNT 5.05 x10^6/uL (4.38-5.82); RED CELL DISTRIBUTION WIDTH 13.8 % (9.4-14.8)
[2020-08-26 23:32] LABS: ALANINE AMINOTRANSFERASE 44 U/L (12-78); ALBUMIN 4.4 g/dL (3.4-5.0); ANION GAP 10 mmol/L (5-15); CALCIUM 8.9 mg/dL (8.5-10.1); CHLORIDE 108 mmol/L (98-107); CREATININE 0.75 mg/dL (0.7-1.3); SALICYLATE LEVEL 1.9 mg/dL (2.8-20.0)
[2020-08-26 23:34] LABS: ALKALINE PHOSPHATASE 76 U/L (45-117); BILIRUBIN,TOTAL 0.9 mg/dL (0.2-1.0); TOTAL PROTEIN 8.6 g/dL (6.4-8.2)
--- NOTE | 2020-08-27 00:15 | NUR ---
Pt lying in bed, sitter in view of pt
--- NOTE | 2020-08-27 01:04 | NUR ---
Pt request water, sitter in view of pt
[2020-08-27] MEDS ORDERED: hydrOXyzine 50MG TABLET PO ONE (02:00)
[2020-08-27] MEDS ORDERED: PRAZOSIN 1 MG CAPSULE PO ONE (02:00)
[2020-08-27] MEDS ORDERED: hydrOXyzine 50MG TABLET ONE (02:08)
[2020-08-27 02:10] LABS: AMPHETAMINE SCREEN, URINE Negative (Negative); BARBITURATE SCREEN, URINE Negative (Negative); BENZODIAZEPINE SCREEN, URINE Negative (Negative); CANNABINOID SCREEN, URINE Positive (Negative); COCAINE SCREEN, URINE Negative (Negative); METHADONE SCREEN, URINE Negative (Negative); OPIATE SCREEN, URINE Negative (Negative)
--- NOTE | 2020-08-27 02:22 | NUR ---
Pt given pudding to take meds, sitter in view of pt
--- NOTE | 2020-08-27 03:05 | NUR ---
Pt resting in bed with eyes closed, even and symmetrical chest rise, sitter in view of pt
--- NOTE | 2020-08-27 04:32 | NUR ---
Pt resting in bed with eyes closed, even and symmetrical chest rise, sitter in view of pt
--- NOTE | 2020-08-27 05:11 | NUR ---
Packet faxed to [facility], [place], [place], and [facility]
--- NOTE | 2020-08-27 05:24 | NUR ---
Charu from [facility] called and denied pt he is out of days
--- NOTE | 2020-08-27 06:54 | NUR ---
ASSUMED CARE OF PT FROM [facility], WAITING FOR COVID RESULT THEN WILL BE ADMITTED TO [facility].
--- NOTE | 2020-08-27 07:24 | NUR ---
PT RESTING ON GURNEY, GARAGE DOOR DOWN X2, BEDRAIL UP X2. NADN. SITTER W/IN LINE OF VISION FOR PT SAFETY.
--- NOTE | 2020-08-27 07:26 | NUR ---
IT WAS REPORTED LAB CALLED LOOKING FOR PREVIOUS RN, THIS RN CALLED TO MAKE SURE THEY DIDN'T NEED ANYTHING AND THEY SAID ITS BEEN ACCEPTED BUT MARGARITA HADN'T SIGNED FOR IT.
--- NOTE | 2020-08-27 07:54 | NUR ---
PT PROVIDED BREAKFAST, BUT REFUSED. YASMANI RAINEY W/IN LINE OF VISION OF PT.
--- NOTE | 2020-08-27 08:14 | NUR ---
SPOKE TO LINDSAY IN [facility] WHO STATES RN IS PASSING MEDS RIGHT NOW, THAT THEIR CHARGE SPOKE ED CHARGE AND ASKED FOR ADDITIONAL TIME. REQUESTED THAT THEY CALL ME BACK WHEN READY.
--- NOTE | 2020-08-27 08:42 | NUR ---
REPORT GIVEN TO [facility].
[2020-08-27 08:57] VITALS: BP 144/80
== END 2020-08-27 09:27 | disposition home or self-care (01) ==
LOC: ED 08-27 01:30 → EDIP 08-27 02:01 → INTOOBSV 08-27 02:01
PROVIDERS: ADMIT Emergency Medicine; ATTEND Emergency Medicine
DX: R45.851 Suicidal ideations (principal); Z20.822 Contact with and (suspected) exposure to COVID-19; F39 Unspecified mood [affective] disorder; F20.9 Schizophrenia, unspecified; K21.9 Gastro-esophageal reflux disease without esophagitis; F15.10 Other stimulant abuse, uncomplicated; G40.909 Epilepsy, unspecified, not intractable, without status epilepticus; F32.9 Major depressive disorder, single episode, unspecified; E11.9 Type 2 diabetes mellitus without complications; I10 Essential (primary) hypertension; F17.200 Nicotine dependence, unspecified, uncomplicated; Z91.5 Personal history of self-harm; Z79.899 Other long term (current) drug therapy
CPT/HCPCS: 36415; 80053; 80299; 80307; 80320; 80329; 85025; 87635; 99284; G0378; G0480

== ENCOUNTER 2020-08-27 08:21 | Inpatient (IN) | payer MEDICARE ==
[~2020-08-27] VITALS: Ht 177.8 cm; Wt 100.2 kg
[2020-08-27] MEDS ORDERED: ONDANSETRON ODT 4 MG PO PRN (08:30)
[2020-08-27] MEDS ORDERED: DOCUSATE 100 MG CAPSULE PO PRN (08:30)
[2020-08-27] MEDS ORDERED: POLYETHYLENE GLYCOL 17 GM PACKET PO PRN (08:30)
[2020-08-27 09:35] LABS: FREE T4 (FREE THYROXINE) 1.01 ng/dL (0.76-1.46)
[2020-08-27 10:15] LABS: MICROSCOPIC AUTO
[2020-08-27 13:36] VITALS: BP 134/99
[2020-08-27] MEDS: HALOPERIDOL 5 MG TABLET PO SCH ×2 (16:57→20:36)
[2020-08-27] MEDS: TRIHEXYPHENIDYL 2MG TABLET PO SCH ×2 (16:57→20:36)
[2020-08-27 19:36] VITALS: BP 122/74
[2020-08-28] MEDS: TRAZODONE 50MG TABLET PO PRN ×2 (00:43→20:34)
[2020-08-28 07:35] VITALS: BP 135/81
[2020-08-28] MEDS: HALOPERIDOL 5 MG TABLET PO SCH ×3 (08:49→20:10)
[2020-08-28] MEDS: ACETAMINOPHEN 325 MG TABLET PO PRN (08:49)
[2020-08-28] MEDS: TRIHEXYPHENIDYL 2MG TABLET PO SCH ×3 (08:49→20:10)
[2020-08-28] MEDS ORDERED: NICOTINE 21 MG/24 HR PATCH.TD24 TD ONE (16:30)
[2020-08-28] MEDS ORDERED: LOPERAMIDE 2 MG CAPSULE PO PRN (18:30)
[2020-08-28 19:45] VITALS: BP 134/73
[2020-08-28] MEDS ORDERED: PINK BISMUTH 87.33 MG/5 ML ORAL SUSP PO PRN (21:00)
[2020-08-29] MEDS: TRAZODONE 50MG TABLET PO PRN ×2 (00:32→20:26)
[2020-08-29] MEDS: ACETAMINOPHEN 325 MG TABLET PO PRN (01:06)
[2020-08-29 07:28] VITALS: BP 116/73
[2020-08-29] MEDS: HALOPERIDOL 5 MG TABLET PO SCH ×3 (08:55→20:26)
[2020-08-29] MEDS: NICOTINE 21 MG/24 HR PATCH.TD24 TD SCH (08:55)
[2020-08-29] MEDS: TRIHEXYPHENIDYL 2MG TABLET PO SCH ×3 (08:55→20:26)
[2020-08-29] MEDS ORDERED: hydrOXyzine 50MG TABLET PO PRN (13:30)
[2020-08-29] MEDS: HYDROXYZINE PAMOATE 50MG CAP PO PRN (13:50)
[2020-08-29 19:47] VITALS: BP 121/87
[2020-08-30] MEDS: ACETAMINOPHEN 325 MG TABLET PO PRN ×2 (04:14→11:42)
[2020-08-30 07:32] VITALS: BP 118/77
[2020-08-30] MEDS: NICOTINE 21 MG/24 HR PATCH.TD24 TD SCH (09:06)
[2020-08-30] MEDS: TRIHEXYPHENIDYL 2MG TABLET PO SCH ×3 (09:07→20:31)
[2020-08-30] MEDS: HALOPERIDOL 5 MG TABLET PO SCH ×3 (09:07→20:31)
[2020-08-31] MEDS: NICOTINE 21 MG/24 HR PATCH.TD24 TD SCH (08:24)
[2020-08-31 08:26] VITALS: BP 132/89
[2020-08-31] MEDS ORDERED: METOPROLOL SUCCINATE 25 MG TAB.ER.24H ONE (08:34)
[2020-08-31] MEDS: METOPROLOL SUCCINATE 25 MG TAB.ER.24H PO SCH (08:36)
[2020-08-31] MEDS: TRIHEXYPHENIDYL 2MG TABLET PO SCH ×3 (08:37→20:30)
[2020-08-31] MEDS: HALOPERIDOL 5 MG TABLET PO SCH ×3 (08:37→20:30)
[2020-08-31] MEDS: HYDROXYZINE PAMOATE 50MG CAP PO PRN (13:04)
[2020-08-31 15:30] VITALS: BP 120/76
[2020-08-31 19:27] VITALS: BP 154/78
[2020-08-31] MEDS: ACETAMINOPHEN 325 MG TABLET PO PRN (20:30)
[2020-08-31] MEDS ORDERED: LORazepam 1MG TABLET PO ONE (21:00)
[2020-09-01] MEDS: METOPROLOL SUCCINATE 25 MG TAB.ER.24H PO SCH (06:01)
[2020-09-01 07:37] VITALS: BP 126/77
[2020-09-01] MEDS: HALOPERIDOL 5 MG TABLET PO SCH (08:46)
[2020-09-01] MEDS: TRIHEXYPHENIDYL 2MG TABLET PO SCH (08:46)
[2020-09-01] MEDS: ACETAMINOPHEN 325 MG TABLET PO PRN (08:46)
[2020-09-01] MEDS: NICOTINE 21 MG/24 HR PATCH.TD24 TD SCH (08:47)
[2020-09-01] MEDS ORDERED: TRIH2TAB3 PO (14:15)
== END 2020-09-01 14:56 | disposition left against medical advice (07) | DRG 885 ==
LOC: 3E 09:18
PROVIDERS: ADMIT Psychiatry & Neurology Psychosomatic Medicine; ATTEND Psychiatry & Neurology Psychosomatic Medicine
DX: F20.0 Paranoid schizophrenia (principal); B19.20 Unspecified viral hepatitis C without hepatic coma; Z53.29 Procedure and treatment not carried out because of patient's decision for other reasons; F12.10 Cannabis abuse, uncomplicated; F15.90 Other stimulant use, unspecified, uncomplicated; F17.200 Nicotine dependence, unspecified, uncomplicated; F10.20 Alcohol dependence, uncomplicated; Y90.9 Presence of alcohol in blood, level not specified; F32.9 Major depressive disorder, single episode, unspecified; G40.909 Epilepsy, unspecified, not intractable, without status epilepticus; G43.909 Migraine, unspecified, not intractable, without status migrainosus; I10 Essential (primary) hypertension; Z79.1 Long term (current) use of non-steroidal anti-inflammatories (NSAID); Z79.899 Other long term (current) drug therapy; Z88.6 Allergy status to analgesic agent; Z88.1 Allergy status to other antibiotic agents; Z91.041 Radiographic dye allergy status; Z91.011 Allergy to milk products; Z88.8 Allergy status to other drugs, medicaments and biological substances; Z91.018 Allergy to other foods; Z91.09 Other allergy status, other than to drugs and biological substances
CPT/HCPCS: 36415; 71045; 81001; 84439; 84443; 93005

== ENCOUNTER 2020-10-18 15:20 | Emergency (ER) | payer MEDICARE ==
[~2020-10-18] VITALS: Ht 177.8 cm; Wt 104.2 kg
[~2020-10-18 15:20] MED LIST changes: +OLAN10TA69 PO; -OLAN10TA9 PO
[2020-10-18 15:36] VITALS: BP 116/79
[2020-10-18] MEDS ORDERED: HYDROCORTISONE CRM 1%, 30GM TP ONE (16:30)
--- NOTE | 2020-10-18 16:49 | NUR ---
Patient given discharge instructions and Rx, they have confirmed that they understand the instructions. Patient ambulatory with steady gait. NAD, all questions answered appropriately, denies additional needs at this time. No personal belongings left in room after discharge.
== END 2020-10-18 17:18 | disposition home or self-care (01) ==
LOC: ED 16:30
DX: S50.361A Insect bite (nonvenomous) of right elbow, initial encounter (principal); K64.4 Residual hemorrhoidal skin tags; F17.200 Nicotine dependence, unspecified, uncomplicated; I10 Essential (primary) hypertension; E11.9 Type 2 diabetes mellitus without complications; W57.XXXA Bitten or stung by nonvenomous insect and other nonvenomous arthropods, initial encounter; Y93.89 Activity, other specified; Y92.89 Other specified places as the place of occurrence of the external cause; Y99.8 Other external cause status
CPT/HCPCS: 99283

== ENCOUNTER 2020-11-10 20:24 | Emergency (ER) | payer MEDICARE ==
[~2020-11-10] VITALS: Ht 170.2 cm; Wt 104.5 kg
[~2020-11-10 20:24] MED LIST changes: -QUET100T PO; +QUET100T2 PO; -QUET200T PO; +QUET200T2 PO; -QUET300T PO; +QUET300T2 PO
[2020-11-10 20:27] VITALS: BP 127/74
[2020-11-10 21:23] LABS: BASOPHILS % (AUTO) 1 % (0-1); EOSINOPHILS % (AUTO) 2 % (1-7); LYMPHOCYTES % (AUTO) 31 % (22-44); MEAN CORPUSCULAR HEMOGLOBIN 31.8 pg (27.5-34.5); MEAN PLATELET VOLUME 6.9 fL (7.4-10.4); MONOCYTES % (AUTO) 5 % (2-9); NEUTROPHILS % (AUTO) 61 % (42-75); PLATELET COUNT 233 x10^3/uL (130-400); RED BLOOD COUNT 4.83 x10^6/uL (4.38-5.82)
[2020-11-10 21:34] LABS: ALANINE AMINOTRANSFERASE 26 U/L (12-78); ALBUMIN 3.4 g/dL (3.4-5.0); ANION GAP 7 mmol/L (5-15); CALCIUM 8.5 mg/dL (8.5-10.1); CHLORIDE 107 mmol/L (98-107); CREATININE 0.69 mg/dL (0.7-1.3)
[2020-11-10 21:39] LABS: ALKALINE PHOSPHATASE 74 U/L (45-117); BILIRUBIN,TOTAL 0.2 mg/dL (0.2-1.0); TOTAL PROTEIN 7.2 g/dL (6.4-8.2); TROPONIN I < 0.015 ng/mL (0.000-0.045)
--- NOTE | 2020-11-11 01:32 | NUR ---
PT LEFT AMA
== END 2020-11-11 01:34 | disposition left against medical advice (07) ==
LOC: ED 21:00
DX: R05 Cough (principal); R06.02 Shortness of breath
CPT/HCPCS: 36415; 71045; 80053; 83690; 84484; 85025; 93005; 99285